=== PATIENT | female | born 1960 | race Caucasian/White ===

== ENCOUNTER 2017-02-20 13:06 | Emergency (ER) | payer OTHER ==
[2017-02-20] MEDS ORDERED: VALIUM 10 MG/2 ML SYRINGE IV ONE (13:32)
--- NOTE | 2017-02-20 13:40 | ERPHSYRPT ---
- History of Present Illness Time Seen by Provider: 02/20/17 13:21 Source: patient Patient Subjective Stated Complaint: dizziness and headache since last night. denies vomiting/diarrhea. Triage Nursing Assessment: to room per w/c, skin w/d, color normal. speech clear. lr without difficulty. javid Physician History: CC: dizziness HX: 56 y/o patient of Dr Cintron. She has ringing in ears for 2 weeks. Spinning dizziness since last night. Headache this AM. She has prior hx of stroke. She is a smoker. No focal weakness, numbness or tingling. No N/V. No chest pain. No injury. She feels worse when lying flat. Severity: severe Allergies/Adverse Reactions: coconut Allergy (Verified 02/20/17 13:20) Home Medications: Calcium Carbonate 2 tab PO TID 07/21/15 [History] Alendronate Sodium/Vitamin D3 [Fosamax Plus D 70 mg-2,800 Iu] 1 each PO UD 02/26 [History] Meloxicam 7.5 mg [Mobic 7.5 MG] 7.5 mg PO DAILY 02/27/16 [History] Pregabalin [Lyrica] 50 mg PO BID 02/27/16 [History] Famotidine 20 mg [Pepcid 20 MG] 20 mg PO DAILY 02/20/17 [History] Fluticasone Propionate [Flonase NASAL] 16 gm NS DAILY 02/20/17 [History] Fluticasone/Salmeterol [Advair 250-50 Diskus] 1 each IH DAILY 02/20/17 [History] Hx Tetanus, Diphtheria Vaccination/Date Given: No Hx Influenza Vaccination/Date Given: Yes (2016) Hx Pneumococcal Vaccination/Date Given: No - Review of Systems Constitutional: No Fever, No Chills Eyes: No Vision Changes Ears, Nose, & Throat: Hearing Changes, Tinnitus Respiratory: No Cough Cardiac: No Chest Pain, No Palpitations, No Syncope Abdominal/Gastrointestinal: No Abdominal Pain, No Nausea, No Vomiting Skin: No Rash Neurological: Dizziness, Headache, No Focal Weakness, No Parasthesia All Other Systems: Reviewed and Negative - Past Medical History Pertinent Past Medical History: Yes Neurological History: TIA ENT History: No Pertinent History Cardiac History: No Pertinent History Respiratory History: Pneumonia Endocrine Medical History: No Pertinent History Musculoskeletal History: Arthritis, Osteoporosis GI Medical History: GERD, Hemorrhoids History: No Pertinent History Psycho-Social History: No Pertinent History Female Reproductive Disorders: Other Other Medical History: sciatic bulging recently,cysts on ovaries taken off 26years ago - Past Surgical History Past Surgical History: Yes Neuro Surgical History: No Pertinent History Cardiac: No Pertinent History Respiratory: No Pertinent History Gastrointestinal: No Pertinent History Genitourinary: No Pertinent History Musculoskeletal: Orthopedic Surgery Female Surgical History: Other Other Surgical History: rt arm,ovarian cyst removed - Social History Smoking Status: Current every day smoker How long have you smoked: 25 Exposure to second hand smoke: Yes Drug Use: none Patient Lives Alone: No - Nursing Vital Signs Nursing Vital Signs: Initial Vital Signs Temperature 97.4 F 02/20/17 13:12 Pulse Rate 90 02/20/17 13:12 Respiratory Rate 16 02/20/17 13:12 Blood Pressure 138/90 02/20/17 13:12 O2 Sat by Pulse Oximetry 99 02/20/17 13:12 Pain Scale Pain Intensity 10 - [place] Coma Scale Best Eye Response ([place]): (4) open spontaneously Best Verbal Response ([place]): (5) oriented Best Motor Response ([place]): (6) obeys commands [place] Total: 15 - Physical Exam General Appearance: alert Eye Exam: bilateral eye: PERRL, EOMI, other (some horizontal nystagmus with gaze ) Ears, Nose, Throat Exam: normal ENT inspection, moist mucous membranes Neck Exam: normal inspection, supple Respiratory: normal breath sounds Cardiovascular: regular rate/rhythm Gastrointestinal: soft, No tenderness, No distention Back Exam: normal inspection Extremity Exam: normal inspection, normal range of motion 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, oriented x 3, cooperative hand welt butter Exam: normal speech, PERRL Coordination/Gait: ABN nose to finger (R) (slow with some ataxis), ABN nose to finger (L) (slow with some ataxia) Motor/Sensory: no motor deficit, no sensory deficit, no pronator drift Skin Exam: normal color, warm, dry, No rash SpO2 Interpretation: normal SpO2: 99 Oxygen Delivery: Room Air - Course Nursing assessment & vital signs reviewed: Yes EKG Interpreted by Me: RATE (75]), Sinus Rhythm, NORMAL AXIS, NORMAL INTERVALS ( [id number]), NORMAL QRS, NORMAL ST-T - Radiology Exams cxr X-ray Interpretation: Teleradiologist Report, Negative Ordered Tests: Active Orders 24 hr Category Date Time Status Clean Catch Urine Specimen STAT Care 02/20/17 13:32 Active EKG-ER Only STAT Care 02/20/17 13:32 Active IV Insertion STAT Care 02/20/17 13:32 Active CHEST 1 VIEW (PORTABLE) Stat Exams 02/20/17 13:32 Completed MRI BRAIN W/O CONTRAST [MRI] Stat Exams 02/20/17 13:34 Completed CBC W DIFF Stat Lab 02/20/17 13:35 Completed CMP Stat Lab 02/20/17 13:35 Completed UA W/ MICROSCOPIC Stat Lab 02/20/17 13:32 Completed Urine Triage Profile Stat Lab 02/20/17 13:32 Completed Medication Summary Discontinued Medications Generic Name Dose Route Start Last Admin Trade Name Freq PRN Reason Stop Dose Admin Diazepam 5 mg 02/20/17 13:32 02/20/17 14:36 Valium 10 Mg/2 Ml Syringe IV 02/20/17 13:33 Not Given STAT ONE Lorazepam 1 mg 02/20/17 14:24 02/20/17 14:39 Ativan 2 Mg/1 Ml Vial IV 02/20/17 14:25 1 mg STAT ONE Administration Lorazepam Confirm 02/20/17 14:38 Ativan 2 Mg/1 Ml Vial Administered 02/20/17 14:39 Dose 2 mg .ROUTE .STK-MED ONE Lab/Rad Data: Laboratory Result Diagrams 02/20/17 13:35 02/20/17 13:35 Laboratory Results 02/20/17 02/20/17 02/20/17 Range/Units 13:35 13:35 13:32 WBC 6.0 (4.0-10.5) K/mm3 RBC 4.23 (4.1-5.4) M/mm3 Hgb 12.3 (12.0-16.0) gm/dl Hct 37.8 (35-47) % MCV 89.4 (78-100) fl MCH 29.1 (26-32) pg MCHC 32.5 (32-36) g/dl RDW 12.7 (11.5-14.0) % Plt Count 278 (150-450) K/mm3 MPV 9.5 (6-9.5) fl Gran % 55.9 (36.0-66.0) % Lymphocytes % 35.6 (24.0-44.0) % Monocytes % 6.0 (0.0-12.0) % Eosinophils % 1.8 (0.00-5.0) % Basophils % 0.7 (0.0-0.4) % Basophils # 0.04 (0-0.4) Sodium 135 L (136-145) mEq/L Potassium 3.9 (3.5-5.1) mEq/L Chloride 101 (98-107) mEq/L Carbon Dioxide 25.7 (21-32) mEq/L Anion Gap 12.2 (5-15) MEQ/L BUN 12 (9-20) mg/dL Creatinine 1.12 (0.55-1.30) mg/dl Estimated GFR 53 ML/MIN Glucose 94 (70-110) MG/DL Calcium 9.0 (8.5-10.1) mg/dL Total Bilirubin 0.20 (0.2-1.0) mg/dL AST 20 (15-37) U/L ALT 20 (12-78) U/L Alkaline Phosphatase 62 (46-116) U/L Serum Total Protein 7.3 (6.4-8.2) gm/dL Albumin 3.8 (3.4-5.0) g/dL Ur Collection Type Urine Color (YELLOW) Urine Appearance (CLEAR) Urine pH (5-6) Ur Specific [place] (1.005-1.025) Urine Protein (Negative) Urine Ketones (NEGATIVE) Urine Blood (0-5) Darvin/ul Urine Nitrite (NEGATIVE) Urine Bilirubin (NEGATIVE) Urine Urobilinogen (0-1) mg/dL Ur Leukocyte Esterase (NEGATIVE) Urine Microscopic WBC (0-5) /HPF Ur Epithelial Cells (FEW) /HPF Urine Bacteria (NEGATIVE) /HPF Urine Culture Reflexed (NO) Urine Glucose (NEGATIVE) mg/dL Urine Opiates Level NEG. (NEGATIVE) Ur Methadone NEG. (NEGATIVE) Urine Barbiturates NEG. (NEGATIVE) Ur Phencyclidine (PCP) NEG. (NEGATIVE) Urine Amphetamine NEG. (NEGATIVE) U Benzodiazepine Level NEG. (NEGATIVE) Urine Cocaine NEG. (NEGATIVE) Urine Marijuana (THC) NEG. (NEGATIVE) Specimen Received 11/17/17 Range/Units 13:32 WBC (4.0-10.5) K/mm3 RBC (4.1-5.4) M/mm3 Hgb (12.0-16.0) gm/dl Hct (35-47) % MCV (78-100) fl MCH (26-32) pg MCHC (32-36) g/dl RDW (11.5-14.0) % Plt Count (150-450) K/mm3 MPV (6-9.5) fl Gran % (36.0-66.0) % Lymphocytes % (24.0-44.0) % Monocytes % (0.0-12.0) % Eosinophils % (0.00-5.0) % Basophils % (0.0-0.4) % Basophils # (0-0.4) Sodium (136-145) mEq/L Potassium (3.5-5.1) mEq/L Chloride (98-107) mEq/L Carbon Dioxide (21-32) mEq/L Anion Gap (5-15) MEQ/L BUN (9-20) mg/dL Creatinine (0.55-1.30) mg/dl Estimated GFR ML/MIN Glucose (70-110) MG/DL Calcium (8.5-10.1) mg/dL Total Bilirubin (0.2-1.0) mg/dL AST (15-37) U/L ALT (12-78) U/L Alkaline Phosphatase (46-116) U/L Serum Total Protein (6.4-8.2) gm/dL Albumin (3.4-5.0) g/dL Ur Collection Type VOID Urine Color LT.YELLOW (YELLOW) Urine Appearance CLEAR (CLEAR) Urine pH 7.0 (5-6) Ur Specific [place] <=1.005 (1.005-1.025) Urine Protein NEGATIVE (Negative) Urine Ketones NEGATIVE (NEGATIVE) Urine Blood MODERATE (0-5) Darvin/ul Urine Nitrite NEGATIVE (NEGATIVE) Urine Bilirubin NEGATIVE (NEGATIVE) Urine Urobilinogen NORMAL (0-1) mg/dL Ur Leukocyte Esterase TRACE (NEGATIVE) Urine Microscopic WBC 0-2 (0-5) /HPF Ur Epithelial Cells FEW (FEW) /HPF Urine Bacteria RARE (NEGATIVE) /HPF Urine Culture Reflexed NO (NO) Urine Glucose NEGATIVE (NEGATIVE) mg/dL Urine Opiates Level (NEGATIVE) Ur Methadone (NEGATIVE) Urine Barbiturates (NEGATIVE) Ur Phencyclidine (PCP) (NEGATIVE) Urine Amphetamine (NEGATIVE) U Benzodiazepine Level (NEGATIVE) Urine Cocaine (NEGATIVE) Urine Marijuana (THC) (NEGATIVE) Specimen Received 02/20/17 1440 - Progress Progress Note: 02/20/17 13:41 Will get MRI brain to rule out subacute cerebellar stroke. She would not be TPA candidate as symptoms started yesterday greater than 12 hours ago. 02/20/17 15:52 MRI: stable MRI brain with minimal degenerative microischemia. No new acute intracranial abnl. She was sleepy after ativan. Has seen Dr Abreu in the past for ENT and tinnitus. Will Add maxzide, antivert and medrol and follow up with Dr Abreu. Counseled pt/family regarding: lab results, diagnosis, need for follow-up, rad results - Departure Time of Disposition: 15:53 Departure Disposition: Home Clinical Impression: Vertigo, Tinnitus Condition: Stable Critical Care Time: No Referrals: MELE CINTRON [Primary Care Provider] - DO ABREU [NON-STAFF PHY W/O PRIVILEGES] - Instructions: Vertigo Additional Instructions: Rx maxzide. Rx antivert- no driving. Rx medrol dose pack. Call to see Dr Abreu next week. Return for fever, vomiting, confusion, or concerns. Prescriptions: Meclizine HCl 25 mg [Antivert 25 mg] 25 mg PO Q6H PRN PRN #15 tablet PRN Reason: Dizziness Hctz/Triamteren 37.5 mg/25 mg* [Maxzide-25MG Tablet] 1 tab PO DAILY #15 tablet Methylprednisolone Packet [Medrol Dosepack] 4 mg PO UD #30 packet
--- NOTE | 2017-02-20 14:05 | XRAY ---
Indication: Dizziness. Comparison: May 06, 2016. Portable chest again demonstrates normal heart, lungs, and bony thorax.
[2017-02-20 14:07] LABS: BASOPHIL % 0.7 % (0.0-0.4); Eosinophil % 1.8 % (0.00-5.0); Granulocytes % 55.9 % (36.0-66.0); Lymphocytes % 35.6 % (24.0-44.0); Mean Cell Volume 89.4 fl (78-100); Mean Corpuscular Hemoglobin 29.1 pg (26-32); Mean Platelet Volume 9.5 fl (6-9.5); Platelet Count 278 K/mm3 (150-450); Red Blood Count 4.23 M/mm3 (4.1-5.4); Red Cell Distribution Width 12.7 % (11.5-14.0)
[2017-02-20] MEDS ORDERED: Ativan 2 MG/1 ML VIAL IV ONE (14:24)
[2017-02-20] MEDS ORDERED: Ativan 2 MG/1 ML VIAL ONE (14:38)
[2017-02-20 14:48] LABS: ALBUMIN 3.8 g/dL (3.4-5.0); ANION GAP 12.2 MEQ/L (5-15); BILIRUBIN,TOTAL 0.2 mg/dL (0.2-1.0); Carbon Dioxide 25.7 mEq/L (21-32); Potassium 3.9 mEq/L (3.5-5.1); Total Protein 7.3 gm/dL (6.4-8.2)
[2017-02-20 14:48] LABS: Collection Type VOID
[2017-02-20 14:49] LABS: ADD URINE CULTURE? NO (NO); Bacteria RARE /HPF (NEGATIVE); Bilirubin NEGATIVE (NEGATIVE); Blood MODERATE Ery/ul (0-5); COMPLETE URINE MICROSCOPIC? YES; Epithelial Cells FEW /HPF (FEW); Glucose NEGATIVE (NEGATIVE); Leukocyte Esterase TRACE (NEGATIVE); WBC 0-2 /HPF (0-5)
--- NOTE | 2017-02-20 15:38 | XRAY ---
Indication: Severe headache, dizziness, nausea, and chills. Sagittal, coronal, and axial MRI brain was performed without contrast using T1, T2, FLAIR, diffusion, and ADC sequences. Comparison: February 14, 2008. Ventriculosulcal pattern appears symmetric. Again a few degenerative micro-ischemia signal bilaterally. No acute intracranial hemorrhage, abnormal extra-axial fluid collection, or mass effect. Diffusion images again negative for restricted signal. Fourth ventricle is midline without hydrocephalus. 7/8 cranial nerve complex bilaterally symmetric. Normal flow void signal within the major intracerebral circulation. Normal-appearing craniocervical junction and sella turcica. Paranasal sinuses are clear. Impression: Stable MRI brain without contrast exam again demonstrating minimal degenerative micro-ischemia. No new or acute intracranial abnormalities.
[2017-02-20 15:57] VITALS: BP 138/76; PULSE 79; O2SAT 99
== END 2017-02-20 16:11 | disposition home or self-care (01) ==
LOC: ED 13:06
DX: R42 Dizziness and giddiness (principal); H93.13 Tinnitus, bilateral; Z79.899 Other long term (current) drug therapy; R51 Headache
CPT/HCPCS: 36000; 36415; 70551; 71010; 80053; 80307; 81000; 85025; 93005; 96374; 96375; 99284; J2060

== ENCOUNTER 2017-02-23 20:16 | Emergency (ER) | payer OTHER ==
[2017-02-23] MEDS ORDERED: Sodium Chloride 0.9% 1000 ML 1,000 ML IV STA (20:48)
[2017-02-23] MEDS ORDERED: Zofran 4 MG/2 ML VIAL IV ONE (20:52)
[2017-02-23] MEDS ORDERED: TORAdol 30 mg Injection IV ONE (20:52)
--- NOTE | 2017-02-23 20:53 | ERPHSYRPT ---
- History of Present Illness Time Seen by Provider: 02/23/17 20:40 Source: patient Exam Limitations: no limitations Patient Subjective Stated Complaint: Pt C/O cramps all over body for 2 weeks. Was recently seen at this fac[facility] for dizziness as well. Reports that she took lyrica and ropinerol for the cramps but it has not helped. Denies vomiting , diarrhea. Reports nausea. Triage Nursing Assessment: Pt alert, oriented, answers all questions appropriately. Skin pink, warm, dry. Resps non-labored. Pt ambulatory to tx room, steady gait noted. Mucous membranes dry, tacky, pink. Physician History: 56 y/o female comes to the ER with complaints of muscle cramps for the past few days. Pt says her whole body is hurting her. Pt used ropinirole and lyrica with no relief. Pt was started on maxzide, medrol and meclizine. Pt admits to not drinking enough water over the last few days. Pt also admits to nausea. Pt describes the pain as cramping, constant, 8/10 and has not used any narcotics or anti-inflammatories. Timing/Duration: day(s) Severity: severe Associated Symptoms: nausea Allergies/Adverse Reactions: coconut Allergy (Verified 02/23/17 20:50) Home Medications: Calcium Carbonate 2 tab PO TID 07/21/15 [History] Alendronate Sodium/Vitamin D3 [Fosamax Plus D 70 mg-2,800 Iu] 1 each PO UD 02/26 [History] Meloxicam 7.5 mg [Mobic 7.5 MG] 7.5 mg PO DAILY 02/27/16 [History] Pregabalin [Lyrica] 50 mg PO BID 02/27/16 [History] Famotidine 20 mg [Pepcid 20 MG] 20 mg PO DAILY 02/20/17 [History] Fluticasone Propionate [Flonase NASAL] 16 gm NS DAILY 02/20/17 [History] Fluticasone/Salmeterol [Advair 250-50 Diskus] 1 each IH DAILY 02/20/17 [History] Hx Tetanus, Diphtheria Vaccination/Date Given: Yes Hx Influenza Vaccination/Date Given: Yes Hx Pneumococcal Vaccination/Date Given: No Immunizations Up to Date: Yes - Review of Systems Constitutional: Weakness, No Fever, No Chills Eyes: No Symptoms Ears, Nose, & Throat: No Symptoms Respiratory: No Cough, No Dyspnea Cardiac: No Chest Pain, No Edema, No Syncope Abdominal/Gastrointestinal: Nausea, No Abdominal Pain, No Vomiting, No Diarrhea Genitourinary Symptoms: No Dysuria Musculoskeletal: Myalgias, No Back Pain, No Neck Pain Skin: No Rash Neurological: Dizziness, No Focal Weakness, No Sensory Changes Psychological: No Symptoms Endocrine: No Symptoms All Other Systems: Reviewed and Negative - Past Medical History Pertinent Past Medical History: Yes Neurological History: TIA ENT History: No Pertinent History Cardiac History: No Pertinent History Respiratory History: Pneumonia Endocrine Medical History: No Pertinent History Musculoskeletal History: Arthritis, Osteoporosis GI Medical History: GERD, Hemorrhoids History: No Pertinent History Psycho-Social History: No Pertinent History Female Reproductive Disorders: Other Other Medical History: sciatic bulging recently,cysts on ovaries taken off 26years ago - Past Surgical History Past Surgical History: Yes Neuro Surgical History: No Pertinent History Cardiac: No Pertinent History Respiratory: No Pertinent History Gastrointestinal: No Pertinent History Genitourinary: No Pertinent History Musculoskeletal: Orthopedic Surgery Female Surgical History: Other Other Surgical History: rt arm,ovarian cyst removed - Social History Smoking Status: Current every day smoker How long have you smoked: 25 Exposure to second hand smoke: Yes Drug Use: none Patient Lives Alone: No - Female History Hx Last Menstrual Period: post-menopausal - Nursing Vital Signs Nursing Vital Signs: Initial Vital Signs Temperature 97.5 F 02/23/17 20:17 Pulse Rate 87 02/23/17 20:17 Respiratory Rate 16 02/23/17 20:17 Blood Pressure 148/83 02/23/17 20:17 O2 Sat by Pulse Oximetry 97 02/23/17 20:17 Pain Scale Pain Intensity [Generalized] 9 Pain Intensity 7 - Physical Exam General Appearance: mild distress, alert Eye Exam: PERRL/EOMI, eyes nml inspection Ears, Nose, Throat Exam: normal ENT inspection, TMs normal, pharynx normal, dry mucous membranes Neck Exam: normal inspection, non-tender, supple, full range of motion Respiratory Exam: normal breath sounds, lungs clear, No respiratory distress Cardiovascular Exam: regular rate/rhythm, normal heart sounds, normal peripheral pulses Gastrointestinal/Abdomen Exam: soft, normal bowel sounds, No tenderness, No mass Back Exam: normal inspection, normal range of motion, No CVA tenderness, No vertebral tenderness Extremity Exam: normal inspection, normal range of motion, pelvis stable, tenderness Neurologic Exam: alert, oriented x 3, cooperative, normal mood/affect, nml cerebellar function, nml station & gait, sensation nml, No motor deficits Skin Exam: normal color, warm, dry, No rash Lymphatic Exam: No adenopathy SpO2 Interpretation: normal SpO2: 97 Oxygen Delivery: Room Air - Course Nursing assessment & vital signs reviewed: Yes Ordered Tests: Active Orders 24 hr Category Date Time Status CHEST 2 VIEWS (PA AND LAT) Stat Exams 02/23/17 Taken CBC W DIFF Stat Lab 02/23/17 20:50 Completed CK-Creatinine Phosphokinase Stat Lab 02/23/17 20:50 Completed CMP Stat Lab 02/23/17 20:50 Completed CULTURE,URINE Stat Lab 02/23/17 20:50 Received Erythrocyte Sedimentation Rate Stat Lab 02/23/17 20:50 Completed MAGNESIUM Stat Lab 02/23/17 20:50 Completed UA W/ MICROSCOPIC Stat Lab 02/23/17 20:50 Completed Medication Summary Generic Name Dose Route Start Last Admin Trade Name Freq PRN Reason Stop Dose Admin Sodium Chloride 1,000 mls @ 200 mls/hr 02/23/17 22:15 02/23/17 22:14 Sodium Chloride 0.9% 1000 Ml IV 03/25/17 22:14 200 mls/hr .Q5H JUSTIN Administration Discontinued Medications Generic Name Dose Route Start Last Admin Trade Name Freq PRN Reason Stop Dose Admin Sodium Chloride 1,000 mls @ 999 mls/hr 02/23/17 20:48 02/23/17 21:05 Sodium Chloride 0.9% 1000 Ml IV 02/23/17 21:48 999 mls/hr .Q1H1M STA Administration Sodium Chloride Confirm 02/23/17 20:57 Sodium Chloride 0.9% 1000 Ml Administered 02/23/17 20:58 Dose 1,000 mls @ ud .ROUTE .STK-MED ONE Ketorolac Tromethamine 30 mg 02/23/17 20:52 02/23/17 21:05 Toradol 30 Mg Injection IV 02/23/17 20:53 30 mg STAT ONE Administration Ketorolac Tromethamine Confirm 02/23/17 20:57 Toradol 30 Mg Injection Administered 02/23/17 20:58 Dose 30 mg .ROUTE .STK-MED ONE Ondansetron HCl 4 mg 02/23/17 20:52 02/23/17 21:05 Zofran 4 Mg/2 Ml Vial IV 02/23/17 20:53 4 mg STAT ONE Administration Ondansetron HCl Confirm 02/23/17 20:57 Zofran 4 Mg/2 Ml Vial Administered 02/23/17 20:58 Dose 4 mg .ROUTE .STK-MED ONE Lab/Rad Data: Laboratory Result Diagrams 02/23/17 20:50 02/23/17 20:50 Laboratory Results 02/23/17 02/23/17 02/23/17 Range/Units 20:50 20:50 20:50 WBC 10.5 (4.0-10.5) K/mm3 RBC 4.37 (4.1-5.4) M/mm3 Hgb 12.9 (12.0-16.0) gm/dl Hct 37.3 (35-47) % MCV 85.4 (78-100) fl MCH 29.5 (26-32) pg MCHC 34.6 (32-36) g/dl RDW 12.4 (11.5-14.0) % Plt Count 310 (150-450) K/mm3 MPV 9.3 (6-9.5) fl Gran % 68.3 H (36.0-66.0) % Lymphocytes % 23.8 L (24.0-44.0) % Monocytes % 7.2 (0.0-12.0) % Eosinophils % 0.5 (0.00-5.0) % Basophils % 0.2 (0.0-0.4) % Basophils # 0.02 (0-0.4) ESR 9 (0-20) mm/hr Sodium 122 L (136-145) mEq/L Potassium 4.7 (3.5-5.1) mEq/L Chloride 85 L (98-107) mEq/L Carbon Dioxide 29.9 (21-32) mEq/L Anion Gap 11.9 (5-15) MEQ/L BUN 17 (9-20) mg/dL Creatinine 1.10 (0.55-1.30) mg/dl Estimated GFR 55 ML/MIN Glucose 88 (70-110) MG/DL Calcium 9.1 (8.5-10.1) mg/dL Magnesium 1.9 (1.8-2.4) mg/dL Total Bilirubin 0.20 (0.2-1.0) mg/dL AST 31 (15-37) U/L ALT 27 (12-78) U/L Alkaline Phosphatase 65 (46-116) U/L Creatine Kinase 1118 H (26-192) U/L Serum Total Protein 7.9 (6.4-8.2) gm/dL Albumin 4.1 (3.4-5.0) g/dL Ur Collection Type CLEAN CATCH Urine Color YELLOW (YELLOW) Urine Appearance CLEAR (CLEAR) Urine pH 6.0 (5-6) Ur Specific [place] 1.010 (1.005-1.025) Urine Protein NEGATIVE (Negative) Urine Ketones NEGATIVE (NEGATIVE) Urine Blood 50 (0-5) Darvin/ul Urine Nitrite NEGATIVE (NEGATIVE) Urine Bilirubin NEGATIVE (NEGATIVE) Urine Urobilinogen NORMAL (0-1) mg/dL Ur Leukocyte Esterase TRACE (NEGATIVE) Urine Microscopic RBC 0-2 (0-2) /HPF Urine Microscopic WBC 2-5 (0-5) /HPF Ur Epithelial Cells FEW (FEW) /HPF Urine Bacteria FEW (NEGATIVE) /HPF Urine Culture Reflexed YES (NO) Urine Glucose NEGATIVE (NEGATIVE) mg/dL Specimen Received 02/23/172046 - Progress Progress: improved Progress Note: 02/23/17 22:08 The CPK is 1118 and the Na is 122 which is a 13 point drop from 135 to 122. Clinically patient is dehydrated and has received a liter of fluids. Pt will now receive a liter of NS at maintenance rate. The rest of the labs are unremarkable and the CXR is negative for any infiltrate. The likely etiology of rhabdomyolysis is the maxzide and medrol dose roshan that was started 3 days ago as well as decrease water intake. 02/23/17 22:[address] Argueta who wants the patient to be transferred to [facility] for a renal consult. 02/23/17 23:06 Pt has been accepted by Dr Argueta at [facility]. - Departure Time of Disposition: 23:06 Departure Disposition: Transfer Clinical Impression: Hyponatremia, Dehydration Rhabdomyolysis Qualifiers: Rhabdomyolysis type: non-traumatic Qualified Code(s): M62.82 - Rhabdomyolysis Condition: Fair Critical Care Time: Yes Critical Care Time(excluding separately billable procedures): 75-104 minutes Referrals: MELE MITCHELL [Primary Care Provider] -
[2017-02-23] MEDS ORDERED: Zofran 4 MG/2 ML VIAL ONE (20:57)
[2017-02-23] MEDS ORDERED: Sodium Chloride 0.9% 1000 ML 1,000 ML ONE ×2 (20:57→22:01)
[2017-02-23] MEDS ORDERED: TORAdol 30 mg Injection ONE (20:57)
[2017-02-23 21:00] LABS: BASOPHIL % 0.2 % (0.0-0.4); Eosinophil % 0.5 % (0.00-5.0); Granulocytes % 68.3 % (36.0-66.0); Lymphocytes % 23.8 % (24.0-44.0); Mean Cell Volume 85.4 fl (78-100); Mean Corpuscular Hemoglobin 29.5 pg (26-32); Mean Platelet Volume 9.3 fl (6-9.5); Monocytes % 7.2 % (0.0-12.0); Platelet Count 310 K/mm3 (150-450); Red Blood Count 4.37 M/mm3 (4.1-5.4); Red Cell Distribution Width 12.4 % (11.5-14.0); White Blood Count 10.5 K/mm3 (4.0-10.5)
[2017-02-23 21:25] LABS: Collection Type CLEAN CATCH; Leukocyte Esterase TRACE (NEGATIVE)
[2017-02-23 21:26] LABS: Bilirubin NEGATIVE (NEGATIVE); Blood 50 Ery/ul (0-5); COMPLETE URINE MICROSCOPIC? YES; Glucose NEGATIVE (NEGATIVE)
[2017-02-23 21:27] LABS: ADD URINE CULTURE? YES (NO); Bacteria FEW /HPF (NEGATIVE); Epithelial Cells FEW /HPF (FEW)
[2017-02-23 21:29] LABS: ALBUMIN 4.1 g/dL (3.4-5.0); ANION GAP 11.9 MEQ/L (5-15); BILIRUBIN,TOTAL 0.2 mg/dL (0.2-1.0); Carbon Dioxide 29.9 mEq/L (21-32); MAGNESIUM 1.9 mg/dL (1.8-2.4); Potassium 4.7 mEq/L (3.5-5.1); Total Protein 7.9 gm/dL (6.4-8.2)
[2017-02-23 21:30] LABS: Erythrocyte Sedimentation Rate 9 mm/hr (0-20)
[2017-02-23 21:57] VITALS: PULSE 76
[2017-02-23] MEDS ORDERED: Sodium Chloride 0.9% 1000 ML 1,000 ML IV SCH (22:15)
[2017-02-23 23:07] VITALS: O2SAT 97
[2017-02-23 23:47] VITALS: BP 117/69
--- NOTE | 2017-02-24 09:26 | XRAY ---
Indication: Cough, chest tightness, chills, and aches. Comparison: February 20, 2017. PA/lateral chest again demonstrates normal heart, lungs, and bony thorax.
== END 2017-02-23 23:47 | disposition short-term general hospital (02) ==
LOC: ED 20:16
DX: M62.82 Rhabdomyolysis (principal); E87.1 Hypo-osmolality and hyponatremia; E86.0 Dehydration
CPT/HCPCS: 36000; 36415; 71020; 80053; 81000; 82550; 83735; 85025; 85652; 87086; 96360; 96361; 96374; 96375; 99284; J1885; J2405

== ENCOUNTER 2017-12-06 13:42 | Emergency (ER) | payer OTHER ==
[2017-12-06] MEDS ORDERED: DUONEB 0.5-3 MG/3 ml Neb IH ONE ×2 (14:01→14:48)
[2017-12-06] MEDS ORDERED: Sodium Chloride 0.9% 1000 ML 1,000 ML ONE (14:07)
--- NOTE | 2017-12-06 14:09 | ERPHSYRPT ---
- History of Present Illness Time Seen by Provider: 12/06/17 13:57 Source: patient Exam Limitations: no limitations Patient Subjective Stated Complaint: pt here for sudden onset of sob while lying on couch,she arrived [place] slumped back with eyes closed, she will answer questions when asked Triage Nursing Assessment: pt alert, resp easy, skin w/d/p.chest clear, coughing up yellow sputum. no fever,no edema noted Physician History: 57-year-old white female with history of TIA, pneumonia, arthritis, osteoporosis , GERD She arrives with complaint of sudden onset of shortness of breath approximately 45 minutes prior to arrival associated with paresthesias to the right arm she has no chest pain no nausea no vomiting she states she has been coughing yellow sputum for the past several days she feels like she's been wheezing. Past medical history includes TIA, pneumonia, arthritis, osteoporosis, GERD, hemorrhoids, sciatic bulging, ovarian cyst removed in the distant past. Past surgical history includes right arm surgery, ovarian cysts Patient states she's been through menopause Social history includes tobacco use she denies alcohol or illicit drug use Timing/Duration: today (45 minutes prior to arrival) Severity: moderate Modifying Factors: Improves With: nothing Associated Symptoms: shortness of breath, cough, other (transient paresthesia right arm prior to symptoms), No nausea, No vomiting, No abdominal pain, No heartburn, No diaphoresis, No chills, No chest pain, No fever, No headaches, No loss of appetite, No malaise, No rash, No syncope, No seizure, No weakness Allergies/Adverse Reactions: coconut Allergy (Verified 12/06/17 13:55) Home Medications: Calcium Carbonate 2 tab PO TID 07/21/15 [History] Alendronate Sodium/Vitamin D3 [Fosamax Plus D 70 mg-2,800 Iu] 1 each PO UD 02/26 [History] Meloxicam 7.5 mg [Mobic 7.5 MG] 7.5 mg PO DAILY 02/27/16 [History] Pregabalin [Lyrica] 50 mg PO BID 02/27/16 [History] Famotidine 20 mg [Pepcid 20 MG] 20 mg PO DAILY 02/20/17 [History] Fluticasone Propionate [Flonase NASAL] 16 gm NS DAILY 02/20/17 [History] Fluticasone/Salmeterol [Advair 250-50 Diskus] 1 each IH DAILY 02/20/17 [History] Hx Tetanus, Diphtheria Vaccination/Date Given: Yes Hx Influenza Vaccination/Date Given: Yes Hx Pneumococcal Vaccination/Date Given: No Immunizations Up to Date: Yes - Review of Systems Constitutional: No Fever, No Chills Eyes: No Symptoms Ears, Nose, & Throat: No Symptoms Respiratory: Cough, Dyspnea, Wheezing Cardiac: No Chest Pain, No Edema, No Syncope Abdominal/Gastrointestinal: No Abdominal Pain, No Nausea, No Vomiting, No Diarrhea Genitourinary Symptoms: No Dysuria Musculoskeletal: No Back Pain, No Neck Pain Skin: No Rash Neurological: Parasthesia (transient paresthesia right armprior to symptom onset), No Dizziness, No Focal Weakness, No Gait Changes, No Headache, No Irritability, No Lethargy, No Paralysis Psychological: No Symptoms Endocrine: No Symptoms All Other Systems: Reviewed and Negative - Past Medical History Pertinent Past Medical History: Yes Neurological History: TIA ENT History: No Pertinent History Cardiac History: Hypertension Respiratory History: COPD, Emphysema Endocrine Medical History: Adrenal Insufficiency Musculoskeletal History: Osteoarthritis, Osteoporosis GI Medical History: GERD, Hemorrhoids History: No Pertinent History Psycho-Social History: No Pertinent History Female Reproductive Disorders: Other Other Medical History: TIA "a few years ago" she had R sided numbness - Past Surgical History Past Surgical History: Yes Neuro Surgical History: No Pertinent History Cardiac: No Pertinent History Respiratory: No Pertinent History Gastrointestinal: No Pertinent History Genitourinary: No Pertinent History Musculoskeletal: Orthopedic Surgery Female Surgical History: Other Other Surgical History: rt arm,ovarian cyst removed - Social History Smoking Status: Current every day smoker How long have you smoked: 25 Exposure to second hand smoke: Yes Drug Use: none Patient Lives Alone: No - Female History Hx Last Menstrual Period: post Hx Now: No - Nursing Vital Signs Nursing Vital Signs: Initial Vital Signs Temperature 98.1 F 12/06/17 13:45 Pulse Rate 70 12/06/17 13:45 Respiratory Rate 26 H 12/06/17 13:45 Blood Pressure 181/82 12/06/17 13:45 O2 Sat by Pulse Oximetry 99 12/06/17 13:45 Pain Scale Pain Intensity 8 - Physical Exam General Appearance: mild distress Eye Exam: PERRL/EOMI, eyes nml inspection Ears, Nose, Throat Exam: normal ENT inspection, TMs normal, pharynx normal, moist mucous membranes Neck Exam: normal inspection, non-tender, supple, full range of motion Respiratory Exam: diminished breath sounds, rhonchi, wheezing (wheezing left upper lung fiels ) Cardiovascular Exam: regular rate/rhythm, normal heart sounds, normal peripheral pulses Gastrointestinal/Abdomen Exam: soft, normal bowel sounds, No tenderness, No mass Back Exam: normal inspection, normal range of motion, No CVA tenderness, No vertebral tenderness Extremity Exam: normal inspection, normal range of motion, pelvis stable Neurologic Exam: alert, oriented x 3, cooperative, telephonic case manager II-XII nml as tested, normal mood/affect, nml cerebellar function, nml station & gait, sensation nml, No motor deficits Skin Exam: normal color, warm, dry, No rash SpO2 Interpretation: normal (100%) SpO2: 100 Oxygen Delivery: Room Air - Course Nursing assessment & vital signs reviewed: Yes EKG Interpreted by Me: RATE (76 bpm), Sinus Rhythm, NORMAL AXIS, Other (EKG, sinus rhythm, 76 beats per minute,normal axis, no acute ST or T WAVE CHANGES, NORMAL ekg) Ordered Tests: Active Orders 24 hr Category Date Time Status Helpdesk Manager STAT Care 12/06/17 14:02 Active EKG-ER Only STAT Care 12/06/17 14:01 Active IV Insertion STAT Care 12/06/17 14:01 Active Oxygen-ED Only NASAL CANNULA 2 lpm Care 12/06/17 14:01 Active Pulse Oximetry (ED) STAT Care 12/06/17 14:01 Active CHEST 1 VIEW (PORTABLE) Stat Exams 12/06/17 14:02 Taken BLOOD CULTURE Stat Lab 12/06/17 14:15 Received CBC W DIFF Stat Lab 12/06/17 14:00 Completed CMP Stat Lab 12/06/17 14:00 Completed CULTURE,SPUTUM Stat Lab 12/06/17 16:00 Received D-DIMER QUANTITATION Stat Lab 12/06/17 14:00 Completed Lactic Acid Stat Lab 12/06/17 14:00 Completed NT PRO BNP Stat Lab 12/06/17 14:00 Completed PROTIME WITH INR Stat Lab 12/06/17 14:00 Completed PTT Stat Lab 12/06/17 14:00 Completed TROPONIN Q3H Lab 12/06/17 14:00 Completed TROPONIN Q3H Lab 12/06/17 17:15 Ordered TROPONIN Q3H Lab 12/06/17 20:15 Ordered TROPONIN Q3H Lab 12/06/17 23:15 Ordered TROPONIN Q3H Lab 12/07/17 02:15 Ordered VENOUS BLOOD GAS Stat Lab 12/06/17 14:00 Completed VENOUS BLOOD GAS Stat Lab 12/06/17 16:21 Completed Respiratory Nebulizer STAT RT 12/06/17 14:03 Active Medication Summary Generic Name Dose Route Start Last Admin Trade Name Freq PRN Reason Stop Dose Admin Sodium Chloride 1,000 mls @ 100 mls/hr 12/06/17 14:15 12/06/17 14:10 Sodium Chloride 0.9% 1000 Ml IV 01/05/18 14:14 100 mls/hr .Q10H JUSTIN Administration Discontinued Medications Generic Name Dose Route Start Last Admin Trade Name Freq PRN Reason Stop Dose Admin Albuterol/Ipratropium 3 ml 12/06/17 14:01 12/06/17 14:35 Duoneb 0.5-3 Mg/3 Ml Neb IH 12/06/17 14:02 3 ml STAT ONE Administration Albuterol/Ipratropium Confirm 12/06/17 14:48 Duoneb 0.5-3 Mg/3 Ml Neb Administered 12/06/17 14:49 Dose 3 ml IH .STK-MED ONE Ceftriaxone Sodium/Dextrose 1 g in 50 mls @ 100 mls/hr 12/06/17 15:10 15:47 Rocephin 1 Gm-D5w 50 Ml Bag IV 12/06/17 15:39 Infused STAT STA Infusion Ceftriaxone Sodium/Dextrose Confirm 12/06/17 15:10 Rocephin 1 Gm-D5w 50 Ml Bag Administered 12/06/17 15:11 Dose 1 g in 50 mls @ ud IV .STK-MED ONE Methylprednisolone Sodium Succinate 125 mg 12/06/17 14:52 12/06/17 15:02 Solu-Medrol 125 Mg IV 12/06/17 14:53 125 mg STAT ONE Administration Methylprednisolone Sodium Succinate Confirm 12/06/17 15:01 Solu-Medrol 125 Mg Administered 12/06/17 15:02 Dose 125 mg .ROUTE .STK-MED ONE Lab/Rad Data: Laboratory Result Diagrams 12/06/17 14:00 12/06/17 14:00 Laboratory Results 12/06/17 12/06/17 12/06/17 Range/Units 16:21 14:00 14:00 WBC (4.0-10.5) K/mm3 RBC (4.1-5.4) M/mm3 Hgb (12.0-16.0) gm/dl Hct (35-47) % MCV (78-100) fl MCH (26-32) pg MCHC (32-36) g/dl RDW (11.5-14.0) % Plt Count (150-450) K/mm3 MPV (6-9.5) fl Gran % (36.0-66.0) % Eos # (Auto) (0-0.5) Absolute Lymphs (auto) (1.0-4.6) Absolute Monos (auto) (0.0-1.3) Lymphocytes % (24.0-44.0) % Monocytes % (0.0-12.0) % Eosinophils % (0.00-5.0) % Basophils % (0.0-0.4) % Absolute Granulocytes (1.4-6.9) Basophils # (0-0.4) PT 11.9 (9.95-12.35) SECONDS INR 1.02 (0.8-3.0) APTT 30.1 (25.3-37.0) SECONDS D-Dimer 298 (215-500) ng/mL pO2/FiO2 Ratio 100.0 % VBG pH 7.35 (7.32-7.42) VBG pCO2 at Pat Temp 51 (42-55) mm/Hg VBG pO2 at Pat Temp 61 H (25-40) mm/Hg VBG HCO3 28.2 H (22-28) meq/L VBG O2 Sat (Zaida) 94.6 L (95-100) VBG Base Excess 1.8 (-2.0-2.0) VBG Hemoglobin 12.4 VBG Carboxyhemoglobin 5.5 (0.0-6.9) % T HGB POC Potassium 3.7 (3.5-5.1) Sodium (137-145) mmol/L Potassium (3.5-5.1) mmol/L Chloride (98-107) mmol/L Carbon Dioxide (22-30) mmol/L Anion Gap (5-15) MEQ/L BUN (7-17) mg/dL Creatinine (0.52-1.04) mg/dL Estimated GFR ML/MIN Glucose (74-106) mg/dL Lactic Acid (0.4-2.0) Calcium (8.4-10.2) mg/dL Total Bilirubin (0.2-1.3) mg/dL AST (14-36) U/L ALT (0-35) U/L Alkaline Phosphatase (38-126) U/L Troponin I < 0.012 (0.000-0.034) ng/mL NT-Pro-B Natriuret Pep (0-900) pg/mL Serum Total Protein (6.3-8.2) g/dL Albumin (3.5-5.0) g/dL 12/06/17 12/06/17 12/06/17 Range/Units 14:00 14:00 14:00 WBC 6.1 (4.0-10.5) K/mm3 RBC 4.22 (4.1-5.4) M/mm3 Hgb 12.6 (12.0-16.0) gm/dl Hct 37.5 (35-47) % MCV 88.9 (78-100) fl MCH 29.9 (26-32) pg MCHC 33.6 (32-36) g/dl RDW 13.1 (11.5-14.0) % Plt Count 263 (150-450) K/mm3 MPV 9.8 H (6-9.5) fl Gran % 57.7 (36.0-66.0) % Eos # (Auto) 0.11 (0-0.5) Absolute Lymphs (auto) 2.10 (1.0-4.6) Absolute Monos (auto) 0.36 (0.0-1.3) Lymphocytes % 34.3 (24.0-44.0) % Monocytes % 5.9 (0.0-12.0) % Eosinophils % 1.8 (0.00-5.0) % Basophils % 0.3 (0.0-0.4) % Absolute Granulocytes 3.54 (1.4-6.9) Basophils # 0.02 (0-0.4) PT (9.95-12.35) SECONDS INR (0.8-3.0) APTT (25.3-37.0) SECONDS D-Dimer (215-500) ng/mL pO2/FiO2 Ratio 28.0 % VBG pH 7.40 (7.32-7.42) VBG pCO2 at Pat Temp 45 (42-55) mm/Hg VBG pO2 at Pat Temp 37 (25-40) mm/Hg VBG HCO3 27.9 (22-28) meq/L VBG O2 Sat (Zaida) 80.6 L (95-100) VBG Base Excess 2.6 H (-2.0-2.0) VBG Hemoglobin 12.2 VBG Carboxyhemoglobin 9.8 H* (0.0-6.9) % T HGB POC Potassium 3.7 (3.5-5.1) Sodium 141 (137-145) mmol/L Potassium 4.0 (3.5-5.1) mmol/L Chloride 105 (98-107) mmol/L Carbon Dioxide 27 (22-30) mmol/L Anion Gap 12.9 (5-15) MEQ/L BUN 9 (7-17) mg/dL Creatinine 0.91 (0.52-1.04) mg/dL Estimated GFR > 60.0 ML/MIN Glucose 98 (74-106) mg/dL Lactic Acid 1.7 (0.4-2.0) Calcium 9.7 (8.4-10.2) mg/dL Total Bilirubin 0.30 (0.2-1.3) mg/dL AST 21 (14-36) U/L ALT 15 (0-35) U/L Alkaline Phosphatase 75 (38-126) U/L Troponin I (0.000-0.034) ng/mL NT-Pro-B Natriuret Pep 96.4 (0-900) pg/mL Serum Total Protein 7.1 (6.3-8.2) g/dL Albumin 4.2 (3.5-5.0) g/dL - Progress Progress: improved Progress Note: 12/06/17 14:44 57-year-old white female with history of TIA, pneumonia, arthritis, osteoporosis Arrives with complaint of shortness of breath for approximately 45 minutes prior to arrival. She states that she had brief paresthesias right arm prior to onset of symptoms she has not had any movement or speech disorders. She has had a cough productive of yellow sputum for 2 days she has not had a fever she has no chest pain. Patient's chest x-ray (my read) no acute disease process noted. Patient is noted to have a carboxyhemoglobin of 9.8. It is noted the patient continues to smoke. I've ordered a DuoNeb treatment on the patient's will turn patient's oxygen up to 100% for one hour. Will await patient's labs EKG is remarkable for sinus rhythm 76 beats per minute normal axis no acute ST or T wave changes are noted. 12/06/17 17:05 Patient feeling markedly better after IV normal saline, Rocephin, Solu-Medrol, DuoNeb treatment. Patient was given one hour of 100% oxygen secondary to a carboxyhemoglobin of over 9. Repeat carboxyhemoglobin level now 5.5. Patient's lung sounds are clear. Will plan on repeat troponin plan on discharge if within normal limits. Anticipate discharge with Zithromax, tapering prednisone, continuing albuterol treatments at home. 12/06/17 17:50 Patient has refused further sticks for troponin. She is in no distress feeling markedly better. Lungs are clear. Will discharge patient. Plan with Zithromax tapering prednisone continuing albuterol treatments at home - Departure Time of Disposition: 17:51 Departure Disposition: Home Clinical Impression: COPD with exacerbation, increased carbon monoxide level Condition: Fair Critical Care Time: No Referrals: MELE MITCHELL [Primary Care Provider] - Instructions: Chronic Obstructive Pulmonary Disease Additional Instructions: Return home. Tapering dose of prednisone and Zithromax as prescribed. Use your inhalers as prescribed by your family doctor. Stop smoking. Follow-up with your family doctor call Thursday for an appointment. Return for acute distress or for severe symptoms. Prescriptions: Azithromycin 250 mg [Zithromax 250 MG TABLET] 0 mg PO ZPACK #6 tablet
[2017-12-06] MEDS ORDERED: Sodium Chloride 0.9% 1000 ML 1,000 ML IV SCH (14:15)
[2017-12-06 14:28] LABS: Lactic Acid 1.7 (0.4-2.0); VBG BASE EXCESS 2.6 (-2.0-2.0); VBG HCO3- 27.9 meq/L (22-28); VBG HEMOGLOBIN 12.2; VBG O2 SATURATION 80.6 (95-100); VBG POTASSIUM 3.7 (3.5-5.1); VBG pH 7.4 (7.32-7.42)
[2017-12-06 14:30] LABS: BASOPHIL % 0.3 % (0.0-0.4); Basophil (Absolute #) 0.02 (0-0.4); Eosinophil % 1.8 % (0.00-5.0); Eosinophil (Absolute #) 0.11 (0-0.5); Granulocyte Absolute (ANC) 3.54 (1.4-6.9); Granulocytes % 57.7 % (36.0-66.0); Hematocrit 37.5 % (35-47); Hemoglobin 12.6 gm/dl (12.0-16.0); Lymphocytes % 34.3 % (24.0-44.0); Mean Cell Volume 88.9 fl (78-100); Mean Corpuscular Hemoglobin 29.9 pg (26-32); Mean Corpuscular Hgb Concent. 33.6 g/dl (32-36); Mean Platelet Volume 9.8 fl (6-9.5); Monocyte (Absolute #) 0.36 (0.0-1.3); Monocytes % 5.9 % (0.0-12.0); Platelet Count 263 K/mm3 (150-450); Red Blood Count 4.22 M/mm3 (4.1-5.4); Red Cell Distribution Width 13.1 % (11.5-14.0); VBG CARBOXYHEMOGLOBIN 9.8 % T HGB (0.0-6.9); White Blood Count 6.1 K/mm3 (4.0-10.5)
[2017-12-06 14:44] LABS: INR 1.02 (0.8-3.0)
[2017-12-06 14:49] LABS: ALBUMIN 4.2 g/dL (3.5-5.0); ALKALINE PHOSPHATASE 75 U/L (38-126); ANION GAP 12.9 MEQ/L (5-15); BLOOD UREA NITROGEN 9 mg/dL (7-17); CHLORIDE 105 mmol/L (98-107); Calcium 9.7 mg/dL (8.4-10.2); Carbon Dioxide 27 mmol/L (22-30); Creatinine 1 0.91 mg/dL (0.52-1.04); Glucose 98 mg/dL (74-106); NT PRO BNP 96.4 pg/mL (0-900); SGOT/AST 21 U/L (14-36); SGPT/ALT 15 U/L (0-35); SODIUM 141 mmol/L (137-145); Total Protein 7.1 g/dL (6.3-8.2)
[2017-12-06] MEDS ORDERED: solu-MEDROL 125 MG IV ONE (14:52)
[2017-12-06 14:56] LABS: PTT 30.1 SECONDS (25.3-37.0)
[2017-12-06] MEDS ORDERED: solu-MEDROL 125 MG ONE (15:01)
[2017-12-06] MEDS ORDERED: ROCEPHIN 1 Gm-D5w 50 ml Bag** 1 G/50 ML IVPB IV ONE (15:10)
[2017-12-06] MEDS ORDERED: ROCEPHIN 1 Gm-D5w 50 ml Bag** 1 G/50 ML IVPB IV STA (15:10)
[2017-12-06 16:21] LABS: VBG BASE EXCESS 1.8 (-2.0-2.0); VBG CARBOXYHEMOGLOBIN 5.5 % T HGB (0.0-6.9); VBG HCO3- 28.2 meq/L (22-28); VBG HEMOGLOBIN 12.4; VBG O2 SATURATION 94.6 (95-100); VBG POTASSIUM 3.7 (3.5-5.1); VBG pH 7.35 (7.32-7.42)
[2017-12-06] MEDS ORDERED: Zithromax 250 MG TABLET PO ONE (17:54)
[2017-12-06] MEDS ORDERED: Zithromax 250 MG TABLET ONE (17:57)
[2017-12-06 18:16] VITALS: BP 146/88; PULSE 72; O2SAT 97
--- NOTE | 2017-12-06 21:21 | XRAY ---
Indication: Short of breath, productive cough, and pain. History COPD. Comparison: March 03, 2017. Portable chest again demonstrates normal heart, lungs, and bony thorax.
== END 2017-12-06 18:16 | disposition home or self-care (01) ==
LOC: ED 13:42
DX: J44.1 Chronic obstructive pulmonary disease with (acute) exacerbation (principal); R20.2 Paresthesia of skin; Z79.899 Other long term (current) drug therapy; R71.8 Other abnormality of red blood cells; Z86.73 Personal history of transient ischemic attack (TIA), and cerebral infarction without residual deficits
CPT/HCPCS: 36000; 36415; 71045; 80053; 82805; 83605; 83880; 84484; 85025; 85379; 85610; 85730; 87040; 87070; 93005; 93041; 94640; 96360; 96365; 96374; 99285; J0696; J2930; A9270-GY

== ENCOUNTER 2018-03-08 10:17 | Day surgery (SDC) | payer OTHER ==
--- NOTE | 2018-03-08 08:08 | HP ---
DATE OF SURGERY: 03/08/2018 HISTORY OF PRESENT ILLNESS: The patient is a 57 year-old who for a while had lesion on her head enlarging now, question of enlarging lump or scalp cyst. It causes more symptoms when she lara or brushes her hair. She is desiring excisional biopsy given increased symptoms. PAST MEDICAL HISTORY: Chronic obstructive pulmonary disease, emphysema. History of mini-stroke in the past. PAST SURGICAL HISTORY: Right arm surgery. Cyst taken off an ovary in the past in the past. MEDICATIONS: Lyrica, omeprazole, meloxicam, Flonase, Atorvastatin, metoprolol, Ventolin, Anoro, Fosamax. ALLERGIES: NKDA. FAMILY HISTORY: Cancer, heart disease. SOCIAL HISTORY: Half pack per day smoker, denies alcohol abuse. REVIEW OF SYSTEMS: Twelve systems reviewed. No chest pain or palpitations other systems negative or noncontributory as above and per preadmission questionnaire. PHYSICAL EXAMINATION: GENERAL: No acute distress. HEENT: Scalp she has got a lump or cyst on her scalp. NECK: No JVD. CHEST: Equal excursion, nonlabored breathing. Breath sounds symmetrical. She has history of chronic obstructive pulmonary disease. CVS: Regular rhythm. ABDOMEN: Soft. No peritoneal signs. EXTREMITIES: No significant edema. NEURO: Alert, moving extremities symmetrically. No gross motor deficits noted. IMPRESSION: Enlarging painful symptomatic scalp cyst or nodule. I feel the patient would benefit from excision and biopsy. Risks and benefits explained in detail including but not limited to bleeding or infection, risk of wound dehiscence possibly requiring packing, risk of anesthesia, deep venous thrombosis, pulmonary embolism, pneumonia, risk of aches, pains, burning or numbness possibly senior living or chronic in nature. She understands what we excise will not recur but she could get a similar cyst or nodule adjacent to or elsewhere on her scalp or body. She understands and agrees to the planned procedure, will proceed with excision and biopsy of scalp cyst or nodule as an outpatient.
[~2018-03-08 10:17] MED LIST: Lactated Ringers 1,000 ML IV ONE; Lactated Ringers 1,000 ML IV SCH; Sensorcaine 0.25% 10 ML ONE
[2018-03-08] MEDS ORDERED: Zemuron 100 MG/10 ML IJ ONE (10:18)
[2018-03-08] MEDS ORDERED: Versed 2 MG/2 ML Injection IV ONE (10:18)
[2018-03-08] MEDS ORDERED: DIPRIVAN 200 MG/20 ML IV ONE (10:18)
[2018-03-08] MEDS ORDERED: SUBLIMAZE 100 MCG/2 ML IV ONE (10:18)
[2018-03-08] MEDS ORDERED: LIDOCAINE HCL 2% 100 MG/5 ML IJ ONE (10:18)
[2018-03-08] MEDS ORDERED: SUBLIMAZE 100 MCG/2 ML ONE (13:44)
[2018-03-08 14:49] VITALS: BP 146/78; PULSE 78; O2SAT 97
--- NOTE | 2018-03-08 15:23 | OP ---
SURGERY DATE/TIME: 03/08/2018 1242 PREOPERATIVE DIAGNOSIS: Enlarging symptomatic scalp cyst or nodule. POSTOPERATIVE DIAGNOSIS: Enlarging symptomatic scalp cyst or nodule. PROCEDURE: Excisional biopsy scalp cyst (approximately 1.2 cm with margins). SURGEON: Dr. Drew Brown. ANESTHESIA: General. ESTIMATED BLOOD LOSS: Minimal. INDICATIONS: As noted above. Risks and benefits explained in detail and not limited to and consent obtained. The site confirmed with the patient in the preoperative holding area. DESCRIPTION OF PROCEDURE AND FINDINGS: She is taken to the operating room. General anesthesia introduced. She is placed in lateral position. Her scalp is prepped and draped in usual sterile fashion. After official time out and no disagreement with planned procedure including a small sliver of skin over the top, dissection was carried down circumferentially around this what appeared to be scalp cyst carefully dissected from the underlying fascia and passed off. It measured about 1.2 cm with margins. The wound was irrigated out. A small amount of ooze from the skin. Otherwise it had good hemostasis noted. The wound was then closed with simple interrupted and vertical mattress 3-0 Prolene, some antibiotic ointment and sterile dressing applied with head wrap with the patient to be transferred to recovery room after that. Findings discussed with the patient out in the waiting area. I will see her back in the office next week to remove the sutures.
== END 2018-03-08 14:50 | disposition home or self-care (01) ==
LOC: SDC 10:17
PROVIDERS: ATTEND Surgery
DX: L72.0 Epidermal cyst (principal); R20.8 Other disturbances of skin sensation; J44.9 Chronic obstructive pulmonary disease, unspecified; Z86.73 Personal history of transient ischemic attack (TIA), and cerebral infarction without residual deficits; Z79.899 Other long term (current) drug therapy; Z72.0 Tobacco use
CPT/HCPCS: 88305; 94250; J2250; J2704; J3010

== ENCOUNTER 2018-08-27 19:53 | Emergency (ER) | payer OTHER ==
--- NOTE | 2018-08-27 20:29 | ERPHSYRPT ---
- History of Present Illness Time Seen by Provider: 08/27/18 20:19 Source: patient Exam Limitations: no limitations Patient Subjective Stated Complaint: Pt c/o dry cough x 4-5 days, subjective fever but not taken at home. Pt c/o headache from coughing. hx copd Triage Nursing Assessment: pink/warm/dry, resp easy, a&ox4, steady gait, no distress noted. Physician History: C/o nonproductive cough x 4-5 days, sore throat, congestion, denies fever, chills, chest pain, SOB, nausea, vomiting, other complaints. She is smoker, using Albuterol inhaler. C/o chest soreness, when coughing. Timing/Duration: day(s) (4-5) Cough Quality/Degree: moderate, dry cough Possible Cause: frequent episodes Modifying Factors: Improves With: albuterol inhaler Associated Symptoms: chest pain/soreness, cough, nasal congestion, sore throat Allergies/Adverse Reactions: coconut Allergy (Verified 08/27/18 20:55) Home Medications: Alendronate Sodium/Vitamin D3 [Fosamax Plus D 70 mg-2,800 Iu] 1 each PO UD 02/26 [History] Meloxicam 7.5 mg [Mobic 7.5 MG] 7.5 mg PO DAILY 02/27/16 [History] Pregabalin [Lyrica] 50 mg PO BID 02/27/16 [History] Fluticasone Propionate [Flonase NASAL] 16 gm NS DAILY 02/20/17 [History] Albuterol Sulfate [Ventolin Hfa] 18 gm IH Q4HPRN PRN 03/08/18 [History] Atorvastatin Calcium [Lipitor] 20 mg PO HS 03/08/18 [History] Benzonatate [Tessalon Perle] 100 mg PO TID 03/08/18 [History] Losartan Potassium 50 mg [Cozaar 50 MG] 50 mg PO DAILY 03/08/18 [History] Metoprolol Succinate [Toprol Xl] 25 mg PO DAILY 03/08/18 [History] Omeprazole 20 mg PO BID 03/08/18 [History] Umeclidinium Brm/Vilanterol Tr [Anoro Ellipta 62.5-25 Mcg INH] 1 each IH BID 06/21 [History] Hx Tetanus, Diphtheria Vaccination/Date Given: Yes Hx Influenza Vaccination/Date Given: Yes Hx Pneumococcal Vaccination/Date Given: No - Review of Systems Constitutional: No Symptoms Eyes: No Symptoms Ears, Nose, & Throat: Nose Congestion, Sinus Drainage, Throat Pain Respiratory: Cough, No Dyspnea, No Stridor Cardiac: No Chest Pain, No Edema Abdominal/Gastrointestinal: No Symptoms Genitourinary Symptoms: No Symptoms Musculoskeletal: No Symptoms Skin: No Symptoms Neurological: No Symptoms All Other Systems: Reviewed and Negative - Past Medical History Pertinent Past Medical History: Yes Neurological History: TIA ENT History: No Pertinent History Cardiac History: Hypertension Respiratory History: COPD, Emphysema Endocrine Medical History: Adrenal Insufficiency Musculoskeletal History: Osteoarthritis, Osteoporosis GI Medical History: GERD, Hemorrhoids History: No Pertinent History Psycho-Social History: No Pertinent History Female Reproductive Disorders: Other Other Medical History: TIA "a few years ago" she had R sided numbness. cysts on ovaries - Past Surgical History Past Surgical History: Yes Neuro Surgical History: No Pertinent History Cardiac: No Pertinent History Respiratory: No Pertinent History Gastrointestinal: No Pertinent History Genitourinary: No Pertinent History Musculoskeletal: Orthopedic Surgery Female Surgical History: Other Other Surgical History: rt arm,ovarian cyst removed, back "defuse" L4-5 and compression fracture repair - Social History Smoking Status: Current every day smoker How long have you smoked: 25 Exposure to second hand smoke: Yes Drug Use: none Patient Lives Alone: Yes - Female History Hx Now: No - Nursing Vital Signs Nursing Vital Signs: Initial Vital Signs Temperature 98.6 F 08/27/18 20:07 Pulse Rate 87 08/27/18 20:07 Respiratory Rate 18 08/27/18 20:07 Blood Pressure 155/79 08/27/18 20:07 O2 Sat by Pulse Oximetry 98 08/27/18 20:07 Pain Scale Pain Intensity 0 - Physical Exam General Appearance: no apparent distress Ears, Nose, Throat Exam: normal ENT inspection, pharynx normal, moist mucous membranes Neck Exam: normal inspection, non-tender, supple, No carotid bruit, No JVD Respiratory Exam: airway intact, rhonchi (few, scattered, bilateral), No chest tenderness, No respiratory distress Cardiovascular Exam: regular rate/rhythm, normal heart sounds, normal peripheral pulses, No murmur Gastrointestinal/Abdomen Exam: soft, normal bowel sounds, No tenderness, No distention, No mass, No guarding, No rebound, No organomegaly Extremity Exam: normal inspection, No calf tenderness, No regis's sign, No pedal edema Neurologic Exam: alert, oriented x 3, cooperative, normal mood/affect Skin Exam: normal color, warm, dry, No rash, No petechiae, No cyanosis Lymphatic Exam: No adenopathy SpO2 Interpretation: normal SpO2: 98 O2 Delivery: Room Air - Course Nursing assessment & vital signs reviewed: Yes EKG Interpreted by Me: RATE (78/min), NORMAL AXIS, NORMAL INTERVALS, NORMAL QRS , NORMAL ST-T - Radiology Exams Chest X-ray Interpretation: Interpreted by me, Negative Ordered Tests: Active Orders 24 hr Category Date Time Status EKG-ER Only STAT Care 08/27/18 20:29 Active IV Insertion STAT Care 08/27/18 20:29 Active CHEST 2 VIEWS (PA AND LAT) Stat Exams 08/27/18 20:23 Ordered CBC W DIFF Stat Lab 08/27/18 20:44 Completed CK-Creatinine Phosphokinase Stat Lab 08/27/18 20:44 Completed CMP Stat Lab 08/27/18 20:44 Completed Manual Differential NC Stat Lab 08/27/18 20:44 Completed NT PRO BNP Stat Lab 08/27/18 20:44 Completed TROPONIN Q3H Lab 08/27/18 20:44 Completed TROPONIN Q3H Lab 08/27/18 23:30 Ordered TROPONIN Q3H Lab 08/28/18 02:30 Ordered TROPONIN Q3H Lab 08/28/18 05:30 Ordered TROPONIN Q3H Lab 08/28/18 08:30 Ordered Lab/Rad Data: Laboratory Result Diagrams 08/27/18 20:44 08/27/18 20:44 Laboratory Results 08/27/18 08/27/18 08/27/18 Range/Units 20:44 20:44 20:44 WBC 7.0 (4.0-10.5) K/mm3 RBC 4.16 (4.1-5.4) M/mm3 Hgb 12.1 (12.0-16.0) gm/dl Hct 36.5 (35-47) % MCV 87.7 (78-100) fl MCH 29.1 (26-32) pg MCHC 33.2 (32-36) g/dl RDW 13.7 (11.5-14.0) % Plt Count 316 (150-450) K/mm3 Segmented Neutrophils 41 (36.0-66.0) % Band Neutrophils 1 (0.0-2.0) % Lymphocytes (Manual) 34 (24-44) % Monocytes (Manual) 6 (0.0-12.0) % Eosinophils (Manual) 5 H (0.00-3.0) % Basophils (Manual) 1 (0.0-1.0) % Promyelocytes 12 % Hypochromia 1+ Platelet Estimate NORMAL (NORMAL) RBC Morphology ABNORMAL Poikilocytosis 2+ Anisocytosis 2+ Sodium 137 (137-145) mmol/L Potassium 4.4 (3.5-5.1) mmol/L Chloride 100 (98-107) mmol/L Carbon Dioxide 26 (22-30) mmol/L Anion Gap 15.2 H (5-15) MEQ/L BUN 16 (7-17) mg/dL Creatinine 0.88 (0.52-1.04) mg/dL Estimated GFR > 60.0 ML/MIN Glucose 97 (74-106) mg/dL Calcium 8.9 (8.4-10.2) mg/dL Total Bilirubin 0.20 (0.2-1.3) mg/dL AST 22 (14-36) U/L ALT 12 (0-35) U/L Alkaline Phosphatase 71 (38-126) U/L Creatine Kinase 123 (30-135) U/L Troponin I < 0.012 (0.000-0.034) ng/mL NT-Pro-B Natriuret Pep 53.3 (0-900) pg/mL Serum Total Protein 7.2 (6.3-8.2) g/dL Albumin 3.9 (3.5-5.0) g/dL Group A Strep Antibody (NEGATIVE) 08/27/18 Range/Units 20:32 WBC (4.0-10.5) K/mm3 RBC (4.1-5.4) M/mm3 Hgb (12.0-16.0) gm/dl Hct (35-47) % MCV (78-100) fl MCH (26-32) pg MCHC (32-36) g/dl RDW (11.5-14.0) % Plt Count (150-450) K/mm3 Segmented Neutrophils (36.0-66.0) % Band Neutrophils (0.0-2.0) % Lymphocytes (Manual) (24-44) % Monocytes (Manual) (0.0-12.0) % Eosinophils (Manual) (0.00-3.0) % Basophils (Manual) (0.0-1.0) % Promyelocytes % Hypochromia Platelet Estimate (NORMAL) RBC Morphology Poikilocytosis Anisocytosis Sodium (137-145) mmol/L Potassium (3.5-5.1) mmol/L Chloride (98-107) mmol/L Carbon Dioxide (22-30) mmol/L Anion Gap (5-15) MEQ/L BUN (7-17) mg/dL Creatinine (0.52-1.04) mg/dL Estimated GFR ML/MIN Glucose (74-106) mg/dL Calcium (8.4-10.2) mg/dL Total Bilirubin (0.2-1.3) mg/dL AST (14-36) U/L ALT (0-35) U/L Alkaline Phosphatase (38-126) U/L Creatine Kinase (30-135) U/L Troponin I (0.000-0.034) ng/mL NT-Pro-B Natriuret Pep (0-900) pg/mL Serum Total Protein (6.3-8.2) g/dL Albumin (3.5-5.0) g/dL Group A Strep Antibody NEGATIVE (NEGATIVE) - Progress Progress: unchanged Air Movement: good Progress Note: 08/27/18 21:32 We reviewed her results, and discussed with her, she has been afebrile, stable, will discharge her to rest x 2-3 days, drink plenty of fluids, and follow up with her physician next week, she was given Medrol dosepak and Z-roshan, and advised to continue Albuterol inhaler. Blood Culture(s) Obtained: No Antibiotics given: Yes Counseled pt/family regarding: lab results, diagnosis, need for follow-up, rad results - Departure Departure Disposition: Home Clinical Impression: COPD with exacerbation, Bronchitis Condition: Stable Critical Care Time: No Referrals: MELE MITCHELL [Primary Care Provider] - Instructions: Chronic Obstructive Pulmonary Disease, Cough, Adult (DC) Additional Instructions: Continue Albuterol as directed, drink plenty of fluids, and rest x 2-3 days, follow up with your physician next week, return if severe shortness of breath, chest pain, vomiting, fever> 102 F! Prescriptions: Azithromycin [Zithromax] 250 mg PO UD #1 packet Methylprednisolone Packet [Medrol Dosepack] 4 mg PO UD #1 packet
[2018-08-27 20:46] LABS: Hematocrit 36.5 % (35-47); Hemoglobin 12.1 gm/dl (12.0-16.0); Mean Cell Volume 87.7 fl (78-100); Mean Corpuscular Hemoglobin 29.1 pg (26-32); Mean Corpuscular Hgb Concent. 33.2 g/dl (32-36); Platelet Count 316 K/mm3 (150-450); Red Blood Count 4.16 M/mm3 (4.1-5.4); Red Cell Distribution Width 13.7 % (11.5-14.0)
[2018-08-27 21:07] LABS: ALBUMIN 3.9 g/dL (3.5-5.0); ALKALINE PHOSPHATASE 71 U/L (38-126); ANION GAP 15.2 MEQ/L (5-15); BLOOD UREA NITROGEN 16 mg/dL (7-17); CHLORIDE 100 mmol/L (98-107); CK-Creatinine Phosphokinase 123 U/L (30-135); Calcium 8.9 mg/dL (8.4-10.2); Carbon Dioxide 26 mmol/L (22-30); Creatinine 1 0.88 mg/dL (0.52-1.04); Glucose 97 mg/dL (74-106); NT PRO BNP 53.3 pg/mL (0-900); Potassium 4.4 mmol/L (3.5-5.1); SGOT/AST 22 U/L (14-36); SGPT/ALT 12 U/L (0-35); SODIUM 137 mmol/L (137-145); Total Protein 7.2 g/dL (6.3-8.2)
[2018-08-27 21:27] LABS: BAND 1 % (0.0-2.0); Basophil 1 % (0.0-1.0); Eosinophil 5 % (0.00-3.0); Lymphocytes 34 % (24-44); Monocyte 6 % (0.0-12.0); Neutrophils 41 % (36.0-66.0); Platelet Estimate NORMAL (NORMAL); Promyelocyte 12 %; Total Cells Counted 100
[2018-08-27 21:28] LABS: ANISOCYTOSIS 2+; Hypochromia 1+; Poikilocytosis 2+
[2018-08-27 22:03] VITALS: BP 128/66; PULSE 76; O2SAT 96
--- NOTE | 2018-08-27 22:07 | XRAY ---
Indication: Cough. Comparison: December 06, 2017. PA/lateral chest again demonstrates normal heart and lungs. Bony thorax intact with interval L2/L3 kyphoplasty and partially visualized L4 posterior spinal hardware.
== END 2018-08-27 22:11 | disposition home or self-care (01) ==
LOC: ED 19:53
DX: J44.1 Chronic obstructive pulmonary disease with (acute) exacerbation (principal); K21.9 Gastro-esophageal reflux disease without esophagitis; M81.0 Age-related osteoporosis without current pathological fracture; Z79.899 Other long term (current) drug therapy; Z86.73 Personal history of transient ischemic attack (TIA), and cerebral infarction without residual deficits
CPT/HCPCS: 36000; 36415; 71046; 80053; 82550; 83880; 84484; 85025; 87651; 93005; 99284

== ENCOUNTER 2018-11-26 14:31 | Emergency (ER) | payer MEDICARE ==
--- NOTE | 2018-11-26 14:43 | ERPHSYRPT ---
- History of Present Illness Time Seen by Provider: 11/26/18 14:43 Source: patient, family Exam Limitations: no limitations Physician History: 58 y/o white female with chronic back pain issues and surgical procedure to lower back 5 months ago, was bending, lifting and pulling weeds for last few days. pts pain worsening. pt denies recent trauma. Method of Injury: bending, twisted, turning Quality: radiating, sharp Back Pain Location: lumbar spine, paraspinous muscles Back Pain Radiation: buttocks Severity of Pain-Max: moderate Severity of Pain-Current: moderate Modifying Factors: Improves With: movement (worsens) Associated Symptoms: denies symptoms, lower back pain, No fever, No urinary incontinence, No loss of bowel control, No constipation, No nausea, No vomiting Previous symptoms: same symptoms as today Allergies/Adverse Reactions: coconut Allergy (Verified 11/26/18 14:49) Home Medications: Alendronate Sodium/Vitamin D3 [Fosamax Plus D 70 mg-2,800 Iu] 1 each PO UD 02/26 [History] Pregabalin [Lyrica] 50 mg PO BID 02/27/16 [History] Fluticasone Propionate [Flonase NASAL] 16 gm NS DAILY 02/20/17 [History] Albuterol Sulfate [Ventolin Hfa] 18 gm IH Q4HPRN PRN 03/08/18 [History] Umeclidinium Brm/Vilanterol Tr [Anoro Ellipta 62.5-25 Mcg INH] 1 each IH BID 06/21 [History] Aspirin [Aspirin EC] 81 mg PO DAILY 11/26/18 [History] Famotidine 20 mg [Pepcid 20 MG] 20 mg PO BID 11/26/18 [History] Hx Tetanus, Diphtheria Vaccination/Date Given: Yes Hx Influenza Vaccination/Date Given: Yes Hx Pneumococcal Vaccination/Date Given: No - Review of Systems Constitutional: No Symptoms Eyes: No Symptoms Ears, Nose, & Throat: No Symptoms Respiratory: No Symptoms Cardiac: No Symptoms Abdominal/Gastrointestinal: No Symptoms Genitourinary Symptoms: No Symptoms Musculoskeletal: Back Pain, No Fall, No Injury Skin: No Symptoms Neurological: No Symptoms Psychological: No Symptoms Endocrine: No Symptoms Hematologic/Lymphatic: No Symptoms Immunological/Allergic: No Symptoms All Other Systems: Reviewed and Negative - Past Medical History Pertinent Past Medical History: Yes Neurological History: TIA ENT History: No Pertinent History Cardiac History: Hypertension Respiratory History: COPD, Emphysema Endocrine Medical History: Adrenal Insufficiency Musculoskeletal History: Osteoarthritis, Osteoporosis GI Medical History: GERD, Hemorrhoids History: No Pertinent History Psycho-Social History: No Pertinent History Female Reproductive Disorders: Other Other Medical History: TIA "a few years ago" she had R sided numbness. cysts on ovaries - Past Surgical History Past Surgical History: Yes Neuro Surgical History: No Pertinent History Cardiac: No Pertinent History Respiratory: No Pertinent History Gastrointestinal: No Pertinent History Genitourinary: No Pertinent History Musculoskeletal: Orthopedic Surgery Female Surgical History: Other Other Surgical History: rt arm,ovarian cyst removed, back "defuse" L4-5 and compression fracture repair - Social History Smoking Status: Current every day smoker How long have you smoked: 25 Exposure to second hand smoke: Yes Drug Use: none Patient Lives Alone: Yes - Nursing Vital Signs Nursing Vital Signs: Initial Vital Signs Temperature 97.5 F 11/26/18 14:41 Pulse Rate 94 H 11/26/18 14:41 Respiratory Rate 16 11/26/18 14:41 Blood Pressure 130/76 11/26/18 14:41 O2 Sat by Pulse Oximetry 99 11/26/18 14:41 Pain Scale Pain Intensity 8 - Physical Exam General Appearance: moderate distress, alert, anxiety Eye Exam: PERRL/EOMI, eyes nml inspection Ears, Nose, Throat Exam: normal ENT inspection, moist mucous membranes Neck Exam: normal inspection, non-tender, supple, full range of motion Respiratory Exam: normal breath sounds, lungs clear, airway intact, No chest tenderness, No respiratory distress Gastrointestinal Exam: No tenderness Pelvic Exam: not done Rectal Exam: not done Back Exam: normal inspection, normal range of motion, No CVA tenderness, No vertebral tenderness Extremity Exam: normal inspection, normal range of motion, pelvis stable Neurologic Exam: alert, oriented x 3, 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, 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 Skin Exam: normal color, warm, dry Lymphatic Exam: No adenopathy SpO2 Interpretation: normal O2 Delivery: Room Air - Course Nursing assessment & vital signs reviewed: Yes Ordered Tests: Medication Summary Discontinued Medications Generic Name Dose Route Start Last Admin Trade Name Freq PRN Reason Stop Dose Admin Hydromorphone HCl 1 mg 11/26/18 15:00 11/26/18 15:11 Hydromorphone 1 Mg/Ml Ampule IM 11/26/18 15:01 1 mg STAT ONE Administration Hydromorphone HCl Confirm 11/26/18 15:06 Hydromorphone 1 Mg/Ml Ampule Administered 11/26/18 15:07 Dose 1 mg .ROUTE .STK-MED ONE Methylprednisolone Sodium Succinate 125 mg 11/26/18 15:01 11/26/18 15:10 Solu-Medrol 125 Mg IM 11/26/18 15:02 125 mg STAT ONE Administration Methylprednisolone Sodium Succinate Confirm 11/26/18 15:07 Solu-Medrol 125 Mg Administered 11/26/18 15:08 Dose 125 mg .ROUTE .STK-MED ONE Ondansetron HCl 4 mg 11/26/18 15:03 11/26/18 15:13 Zofran Odt 4 Mg PO 11/26/18 15:04 4 mg STAT ONE Administration Ondansetron HCl Confirm 11/26/18 15:06 Zofran 4 Mg/2 Ml Vial Administered 11/26/18 15:07 Dose 4 mg .ROUTE .STK-MED ONE Ondansetron HCl Confirm 11/26/18 15:13 Zofran Odt 4 Mg Administered 11/26/18 15:14 Dose 4 mg .ROUTE .STK-MED ONE - Progress Progress: improved, pain not gone completely, re-examined Counseled pt/family regarding: diagnosis, need for follow-up - Departure Departure Disposition: Home Clinical Impression: Low back pain Condition: Stable Critical Care Time: No Referrals: MELE MITCHELL [Primary Care Provider] - Additional Instructions: take medications as prescribed. follow up with primary doctor for further management. Prescriptions: Carisoprodol 350 mg [Soma 350 mg] 350 mg PO Q12H PRN PRN #8 tablet PRN Reason: Muscle Spasms Oxycodone HCl/Acetaminophen [Percocet 5-325 mg Tablet] 1 each PO Q12H PRN PRN # 8 tablet MDD 2 PRN Reason: Pain
[2018-11-26] MEDS ORDERED: Hydromorphone 1 mg/ml Ampule IM ONE (15:00)
[2018-11-26] MEDS ORDERED: solu-MEDROL 125 MG IM ONE (15:01)
[2018-11-26] MEDS ORDERED: ZOFRAN ODT 4 MG PO ONE (15:03)
[2018-11-26] MEDS ORDERED: Hydromorphone 1 mg/ml Ampule ONE (15:06)
[2018-11-26] MEDS ORDERED: Zofran 4 MG/2 ML VIAL ONE (15:06)
[2018-11-26] MEDS ORDERED: solu-MEDROL 125 MG ONE (15:07)
[2018-11-26] MEDS ORDERED: ZOFRAN ODT 4 MG ONE (15:13)
[2018-11-26 16:39] VITALS: BP 122/67; PULSE 65; O2SAT 96
== END 2018-11-26 16:34 | disposition home or self-care (01) ==
LOC: ED 14:31
DX: M54.5 Low back pain (principal); G89.29 Other chronic pain
CPT/HCPCS: 96372; 99284; J1170; J2405; J2930; Q0162

== ENCOUNTER 2019-04-11 19:17 | Emergency (ER) | payer MEDICARE ==
[2019-04-11] MEDS ORDERED: BABY ASPIRIN 81 MG CHEW PO ONE (19:22)
--- NOTE | 2019-04-11 19:22 | ERPHSYRPT ---
- History of Present Illness Time Seen by Provider: 04/11/19 19:22 Historian: patient, family Exam Limitations: no limitations Physician History: 58 y/o white female presents with sharp central substernal cp that radiates into her neck. 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 no cardiac hx. never had before. Timing/Duration: today Activities at Onset: other (smoking) Quality: sharpness, stabbing Location: substernal, central Chest Pain Radiation: jaw, neck Severity of Pain-Max: moderate Severity of Pain-Current: moderate Modifying Factors: Improves With: nothing Associated Symptoms: denies symptoms Prior Chest Pain/Cardiac Workup: no prior cardiac workup Nitro Today/Relief: no nitro taken today Aspirin Treatment Today: no aspirin today Allergies/Adverse Reactions: coconut Allergy (Verified 11/26/18 14:49) Home Medications: Alendronate Sodium/Vitamin D3 [Fosamax Plus D 70 mg-2,800 Iu] 1 each PO UD 02/26 [History] Pregabalin [Lyrica] 50 mg PO BID 02/27/16 [History] Fluticasone Propionate [Flonase NASAL] 16 gm NS DAILY 02/20/17 [History] Albuterol Sulfate [Ventolin Hfa] 18 gm IH Q4HPRN PRN 03/08/18 [History] Umeclidinium Brm/Vilanterol Tr [Anoro Ellipta 62.5-25 Mcg INH] 1 each IH BID 06/21 [History] Aspirin [Aspirin EC] 81 mg PO DAILY 11/26/18 [History] Famotidine 20 mg [Pepcid 20 MG] 20 mg PO BID 11/26/18 [History] Hx Tetanus, Diphtheria Vaccination/Date Given: Yes Hx Influenza Vaccination/Date Given: Yes Hx Pneumococcal Vaccination/Date Given: No - Review of Systems Constitutional: No Symptoms Eyes: No Symptoms Ears, Nose, & Throat: No Symptoms Respiratory: No Symptoms Cardiac: Chest Pain Abdominal/Gastrointestinal: No Symptoms Genitourinary Symptoms: No Symptoms Musculoskeletal: No Symptoms Skin: No Symptoms Neurological: No Symptoms Psychological: No Symptoms Endocrine: No Symptoms Hematologic/Lymphatic: No Symptoms Immunological/Allergic: No Symptoms All Other Systems: Reviewed and Negative - Past Medical History Pertinent Past Medical History: Yes Neurological History: TIA ENT History: No Pertinent History Cardiac History: Hypertension Respiratory History: COPD, Emphysema Endocrine Medical History: Adrenal Insufficiency Musculoskeletal History: Osteoarthritis, Osteoporosis GI Medical History: GERD, Hemorrhoids History: No Pertinent History Psycho-Social History: No Pertinent History Female Reproductive Disorders: Other Other Medical History: TIA "a few years ago" she had R sided numbness. cysts on ovaries - Past Surgical History Past Surgical History: Yes Neuro Surgical History: No Pertinent History Cardiac: No Pertinent History Respiratory: No Pertinent History Gastrointestinal: No Pertinent History Genitourinary: No Pertinent History Musculoskeletal: Orthopedic Surgery Female Surgical History: Other Other Surgical History: rt arm,ovarian cyst removed, back "defuse" L4-5 and compression fracture repair - Social History Smoking Status: Current every day smoker How long have you smoked: 25 Exposure to second hand smoke: Yes Drug Use: none Patient Lives Alone: Yes - Nursing Vital Signs Nursing Vital Signs: Initial Vital Signs Temperature 98.6 F 04/11/19 19:18 Pulse Rate 93 H 04/11/19 19:18 Respiratory Rate 24 04/11/19 19:18 Blood Pressure 166/91 04/11/19 19:18 O2 Sat by Pulse Oximetry 98 04/11/19 19:18 Pain Scale Pain Intensity 8 - Physical Exam General Appearance: mild distress, alert, anxiety Eye Exam: PERRL/EOMI, eyes nml inspection Ears, Nose, Throat Exam: normal ENT inspection, moist mucous membranes Neck Exam: normal inspection, non-tender, supple, full range of motion Respiratory Exam: normal breath sounds, chest tenderness, lungs clear, airway intact, No respiratory distress Cardiovascular Exam: regular rate/rhythm, normal heart sounds, normal peripheral pulses Gastrointestinal/Abdomen Exam: soft, normal bowel sounds, No tenderness Pelvic Exam: not done Rectal Exam: not done Back Exam: normal inspection, normal range of motion, No CVA tenderness, No vertebral tenderness Extremity Exam: normal inspection, normal range of motion, pelvis stable Neurologic Exam: alert, oriented x 3, 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 no acute changes. ) Ordered Tests: Active Orders 24 hr Category Date Time Status Platform Consultant STAT Care 04/11/19 19:23 Active EKG-ER Only STAT Care 04/11/19 19:22 Active IV Insertion STAT Care 04/11/19 19:22 Active Pulse Oximetry (ED) STAT Care 04/11/19 19:22 Active CHEST 1 VIEW (PORTABLE) Stat Exams 04/11/19 19:23 Taken CBC W DIFF Stat Lab 04/11/19 19:43 Completed CMP Stat Lab 04/11/19 19:43 Completed NT PRO BNP Stat Lab 04/11/19 19:43 Completed PROTIME WITH INR Stat Lab 04/11/19 19:43 Completed TROPONIN Q3H Lab 04/11/19 19:43 Completed TROPONIN Q3H Lab 04/11/19 22:33 Completed TROPONIN Q3H Lab 04/12/19 01:30 Ordered TROPONIN Q3H Lab 04/12/19 04:30 Ordered TROPONIN Q3H Lab 04/12/19 07:30 Ordered Medication Summary Discontinued Medications Generic Name Dose Route Start Last Admin Trade Name Freq PRN Reason Stop Dose Admin Aspirin 324 mg 04/11/19 19:22 04/11/19 19:44 Baby Aspirin 81 Mg Chew PO 04/11/19 19:23 324 mg STAT ONE Administration Morphine Sulfate 4 mg 04/11/19 19:44 04/11/19 20:09 Morphine Sulfate 4 Mg Inj IV 04/11/19 19:45 4 mg STAT ONE Administration Morphine Sulfate Confirm 04/11/19 20:07 Morphine Sulfate 4 Mg Inj Administered 04/11/19 20:08 Dose 4 mg .ROUTE .STK-MED ONE Ondansetron HCl 4 mg 04/11/19 19:45 04/11/19 20:09 Zofran 4 Mg/2 Ml Vial IV 04/11/19 19:46 4 mg STAT ONE Administration Ondansetron HCl Confirm 04/11/19 20:06 Zofran 4 Mg/2 Ml Vial Administered 04/11/19 20:07 Dose 4 mg .ROUTE .STK-MED ONE Lab/Rad Data: Laboratory Result Diagrams 04/11/19 19:43 04/11/19 19:43 Laboratory Results 04/11/19 04/11/19 04/11/19 Range/Units 22:33 19:43 19:43 WBC (4.0-10.5) K/mm3 RBC (4.1-5.4) M/mm3 Hgb (12.0-16.0) gm/dl Hct (35-47) % MCV (78-100) fl MCH (26-32) pg MCHC (32-36) g/dl RDW (11.5-14.0) % Plt Count (150-450) K/mm3 MPV (7.5-11.0) fl Gran % (36.0-66.0) % Eos # (Auto) (0-0.5) Absolute Lymphs (auto) (1.0-4.6) Absolute Monos (auto) (0.0-1.3) Lymphocytes % (24.0-44.0) % Monocytes % (0.0-12.0) % Eosinophils % (0.00-5.0) % Basophils % (0.0-0.4) % Absolute Granulocytes (1.4-6.9) Basophils # (0-0.4) PT 10.6 (9.95-12.35) SECONDS INR 0.94 (0.8-3.0) Sodium (137-145) mmol/L Potassium (3.5-5.1) mmol/L Chloride (98-107) mmol/L Carbon Dioxide (22-30) mmol/L Anion Gap (5-15) MEQ/L BUN (7-17) mg/dL Creatinine (0.52-1.04) mg/dL Estimated GFR ML/MIN Glucose (74-106) mg/dL Calcium (8.4-10.2) mg/dL Total Bilirubin (0.2-1.3) mg/dL AST (14-36) U/L ALT (0-35) U/L Alkaline Phosphatase (38-126) U/L Troponin I < 0.012 < 0.012 (0.000-0.034) ng/mL NT-Pro-B Natriuret Pep (0-900) pg/mL Serum Total Protein (6.3-8.2) g/dL Albumin (3.5-5.0) g/dL 04/11/19 04/11/19 Range/Units 19:43 19:43 WBC 7.4 (4.0-10.5) K/mm3 RBC 4.25 (4.1-5.4) M/mm3 Hgb 12.5 (12.0-16.0) gm/dl Hct 38.2 (35-47) % MCV 89.9 (78-100) fl MCH 29.4 (26-32) pg MCHC 32.7 (32-36) g/dl RDW 13.9 (11.5-14.0) % Plt Count 390 (150-450) K/mm3 MPV 9.1 (7.5-11.0) fl Gran % 48.3 (36.0-66.0) % Eos # (Auto) 0.22 (0-0.5) Absolute Lymphs (auto) 3.08 (1.0-4.6) Absolute Monos (auto) 0.49 (0.0-1.3) Lymphocytes % 41.7 (24.0-44.0) % Monocytes % 6.6 (0.0-12.0) % Eosinophils % 3.0 (0.00-5.0) % Basophils % 0.4 (0.0-0.4) % Absolute Granulocytes 3.57 (1.4-6.9) Basophils # 0.03 (0-0.4) PT (9.95-12.35) SECONDS INR (0.8-3.0) Sodium 139 (137-145) mmol/L Potassium 4.0 (3.5-5.1) mmol/L Chloride 102 (98-107) mmol/L Carbon Dioxide 29 (22-30) mmol/L Anion Gap 11.8 (5-15) MEQ/L BUN 16 (7-17) mg/dL Creatinine 1.05 H (0.52-1.04) mg/dL Estimated GFR 57.2 ML/MIN Glucose 80 (74-106) mg/dL Calcium 9.4 (8.4-10.2) mg/dL Total Bilirubin 0.20 (0.2-1.3) mg/dL AST 29 (14-36) U/L ALT 13 (0-35) U/L Alkaline Phosphatase 69 (38-126) U/L Troponin I (0.000-0.034) ng/mL NT-Pro-B Natriuret Pep 48.5 (0-900) pg/mL Serum Total Protein 8.1 (6.3-8.2) g/dL Albumin 4.5 (3.5-5.0) g/dL - Progress Progress: improved Air Movement: good Progress Note: 04/11/19 23:27 cxr- no acute process. pt denies cp at time of discharge. Blood Culture(s) Obtained: No Antibiotics given: No Counseled pt/family regarding: lab results, diagnosis, need for follow-up, rad results - Departure Departure Disposition: Home Clinical Impression: Chest pain Condition: Stable Critical Care Time: Yes Referrals: MELE MITCHELL [Primary Care Provider] - Additional Instructions: stop smoking. follow up with primary doctor for further management
[2019-04-11] MEDS ORDERED: MORPHINE SULFATE 4 MG INJ IV ONE (19:44)
[2019-04-11] MEDS ORDERED: Zofran 4 MG/2 ML VIAL IV ONE (19:45)
[2019-04-11 19:55] LABS: Absolute Neutrophil Ct (ANC) 3.57 (1.4-6.9); BASOPHIL % 0.4 % (0.0-0.4); Basophil (Absolute #) 0.03 (0-0.4); Eosinophil (Absolute #) 0.22 (0-0.5); Hematocrit 38.2 % (35-47); Hemoglobin 12.5 gm/dl (12.0-16.0); Lymphocyte (Absolute #) 3.08 (1.0-4.6); Lymphocytes % 41.7 % (24.0-44.0); Mean Cell Volume 89.9 fl (78-100); Mean Corpuscular Hemoglobin 29.4 pg (26-32); Mean Corpuscular Hgb Concent. 32.7 g/dl (32-36); Mean Platelet Volume 9.1 fl (7.5-11.0); Monocyte (Absolute #) 0.49 (0.0-1.3); Monocytes % 6.6 % (0.0-12.0); Neutrophil % 48.3 % (36.0-66.0); Platelet Count 390 K/mm3 (150-450); Red Blood Count 4.25 M/mm3 (4.1-5.4); Red Cell Distribution Width 13.9 % (11.5-14.0); White Blood Count 7.4 K/mm3 (4.0-10.5)
[2019-04-11 20:02] LABS: INR 0.94 (0.8-3.0); PROTIME 10.6 SECONDS (9.95-12.35)
[2019-04-11] MEDS ORDERED: Zofran 4 MG/2 ML VIAL ONE (20:06)
[2019-04-11] MEDS ORDERED: MORPHINE SULFATE 4 MG INJ ONE (20:07)
[2019-04-11 20:17] LABS: ALBUMIN 4.5 g/dL (3.5-5.0); ANION GAP 11.8 MEQ/L (5-15); BILIRUBIN,TOTAL 0.2 mg/dL (0.2-1.3); Calcium 9.4 mg/dL (8.4-10.2); Creatinine 1 1.05 mg/dL (0.52-1.04); NT PRO BNP 48.5 pg/mL (0-900); Total Protein 8.1 g/dL (6.3-8.2)
[2019-04-11 23:38] VITALS: BP 109/65; PULSE 71; O2SAT 97
--- NOTE | 2019-04-12 08:47 | XRAY ---
Indication: Chest pain and cough. Comparison: April 07, 2019. Portable chest markedly less inflated crowding the lung bases. Remaining heart and lungs unremarkable. No new/acute findings.
== END 2019-04-11 23:41 | disposition home or self-care (01) ==
LOC: ED 19:17
DX: R07.89 Other chest pain (principal); Z79.899 Other long term (current) drug therapy; I10 Essential (primary) hypertension; E27.40 Unspecified adrenocortical insufficiency
CPT/HCPCS: 36000; 36415; 71045; 80053; 83880; 84484; 85025; 85610; 93005; 93041; 94760; 96374; 96375; 99284; J2270; J2405; A9270-GY

== ENCOUNTER 2019-05-19 17:33 | Emergency (ER) | payer MEDICARE ==
--- NOTE | 2019-05-19 18:17 | ERPHSYRPT ---
- History of Present Illness Time Seen by Provider: 05/19/19 18:10 Source: patient Exam Limitations: no limitations Patient Subjective Stated Complaint: pt here to have her partial plate in her mouth, she received plate today and states the dentist did not show her how to remove it, Triage Nursing Assessment: pt alert, walked in, resp eas skin wcandelariap, has partial plate to lower jaw Physician History: Patient is here because she did not remove her partial plate. It was placed by her dentist approximately 2 hours prior to arrival. She has no other symptoms. Timing/Duration: hours Severity: mild ENT Location: mouth Prearrival Treatment: no prearrival treatment Modifying Factors: Improves With: nothing Associated Symptoms: denies symptoms Allergies/Adverse Reactions: coconut Allergy (Verified 05/19/19 17:54) Home Medications: Fluticasone Propionate [Flonase NASAL] 16 gm NS DAILY 02/20/17 [History] Albuterol Sulfate [Ventolin Hfa] 18 gm IH Q4HPRN PRN 03/08/18 [History] Umeclidinium Brm/Vilanterol Tr [Anoro Ellipta 62.5-25 Mcg INH] 1 each IH BID 06/21 [History] Aspirin [Aspirin EC] 81 mg PO DAILY 11/26/18 [History] Famotidine 20 mg [Pepcid 20 MG] 20 mg PO BID 11/26/18 [History] Hx Tetanus, Diphtheria Vaccination/Date Given: No Hx Influenza Vaccination/Date Given: Yes Hx Pneumococcal Vaccination/Date Given: No Immunizations Up to Date: No - Review of Systems Constitutional: No Fever, No Chills Eyes: No Symptoms Ears, Nose, & Throat: No Symptoms Respiratory: No Cough, No Dyspnea Cardiac: No Chest Pain, No Edema, No Syncope Abdominal/Gastrointestinal: No Abdominal Pain, No Nausea, No Vomiting, No Diarrhea Genitourinary Symptoms: No Dysuria Musculoskeletal: No Back Pain, No Neck Pain Skin: No Rash Neurological: No Dizziness, No Focal Weakness, No Sensory Changes Psychological: No Symptoms Endocrine: No Symptoms All Other Systems: Reviewed and Negative - Past Medical History Pertinent Past Medical History: Yes Neurological History: TIA ENT History: No Pertinent History Cardiac History: Hypertension Respiratory History: COPD, Emphysema Endocrine Medical History: Adrenal Insufficiency Musculoskeletal History: Osteoarthritis, Osteoporosis GI Medical History: GERD, Hemorrhoids History: No Pertinent History Psycho-Social History: No Pertinent History Female Reproductive Disorders: Other Other Medical History: TIA "a few years ago" she had R sided numbness. cysts on ovaries - Past Surgical History Past Surgical History: Yes Neuro Surgical History: No Pertinent History Cardiac: No Pertinent History Respiratory: No Pertinent History Gastrointestinal: No Pertinent History Genitourinary: No Pertinent History Musculoskeletal: Orthopedic Surgery Female Surgical History: Other Other Surgical History: rt arm,ovarian cyst removed, back "defuse" L4-5 and compression fracture repair - Social History Smoking Status: Current every day smoker How long have you smoked: 25 Exposure to second hand smoke: Yes Drug Use: none Patient Lives Alone: No - Female History Hx Last Menstrual Period: post Hx Now: No - Nursing Vital Signs Nursing Vital Signs: Pain Scale Pain Intensity 10 - Physical Exam General Appearance: no apparent distress, alert Eye Exam: bilateral eye: PERRL, EOMI Nasal Exam: normal inspection Throat Exam: normal (Partial plate intact. No other pathology observed. Patient having difficulty removing plate.), pharynx normal, moist mucus membranes, No tonsillar exudate Neck Exam: supple Cardiovascular/Respiratory Exam: normal breath sounds, regular rate/rhythm Abdominal Exam: non-tender, soft Neurologic Exam: alert, oriented x 3, sensation nml, No motor deficits Skin Exam: normal color, warm, dry - Progress Progress Note: 05/19/19 18:16 EDMD easily removed partial plate. No complications. Patient has no pain. Patient requesting discharge. - Departure Departure Disposition: Home Clinical Impression: Removable partial denture with loss of occlusal relationship Condition: Stable Critical Care Time: No Referrals: MELE MITCHELL [Primary Care Provider] - Additional Instructions: Discharge/Care Plan MICHAEL FLOYD was seen on 05/19/19 in the Emergency Room. The patient was counseled regarding Diagnosis,Lab results, Imaging studies, need for follow up and when to return to the Emergency Room. Prescriptions given: Discharge Note I have spoken with the patient and/or caregivers. I have explained the patient' s condition, diagnosis and treatment plan based on the information available to me at this time. I have answered the patient's and/or caregiver's questions and addressed any concerns. The patient and/or caregivers have as good understanding of the patient's diagnosis, condition and treatment plan as can be expected at this point. The vital signs have been stable. The patient's condition is stable and appropriate for discharge from the emergency department. The patient will pursue further outpatient evaluation with the primary care physician or other designated or consulting physician as outlined in the discharge instructions. The patient and/or caregivers are agreeable to this plan of care and follow-up instructions have been explained in detail. The patient and/or caregivers have received these instruction. The patient/and or caregivers are aware that any significant change in condition or worsening of symptoms should prompt an immediate return to this or the closest emergency department or call 911.
[2019-05-19 18:28] VITALS: PULSE 84; O2SAT 98
== END 2019-05-19 18:29 | disposition home or self-care (01) ==
LOC: ED 17:33
DX: Z46.3 Encounter for fitting and adjustment of dental prosthetic device (principal)
CPT/HCPCS: 99283

== ENCOUNTER 2019-09-11 18:16 | Observation (INO) | payer MEDICARE ==
[2019-09-11] MEDS ORDERED: MORPHINE SULFATE 2 MG INJ IV ONE (18:41)
[2019-09-11] MEDS ORDERED: Sodium Chloride 0.9% 1000 ML 1,000 ML IV STA (18:41)
[2019-09-11] MEDS ORDERED: Sodium Chloride 0.9% 1000 ML 1,000 ML ONE (18:49)
[2019-09-11] MEDS ORDERED: MORPHINE SULFATE 2 MG INJ ONE (18:49)
[2019-09-11] MEDS ORDERED: Adacel Vial IM ONE ×2 (19:15→19:18)
--- NOTE | 2019-09-11 19:17 | ERPHSYRPT ---
- History of Present Illness Time Seen by Provider: 09/11/19 18:25 Source: patient Exam Limitations: no limitations Patient Subjective Stated Complaint: pt here for swelling and reddness around left eye, and pain to left eye, draining yellow Triage Nursing Assessment: pt went has had this problem for 2 weeks and went thursday to and started on drops moxiflocin Physician History: Patient is a 58-year-old female presents to our ED with complaints of swelling redness and pain around her left eye. Patient was diagnosed with conjunctivitis approximately 1 week ago. Patient was started on antibiotic eyedrops. In spite of the eyedrops her symptoms have gotten progressively worse. Patient is now experiencing swelling redness and pain around her left eye. Pain described as an ache that is well localized. No radiation. Pain worse with palpation and improved with rest. Patient denies trauma. No nausea or vomiting. No fever. No neck pain. No photophobia. Patient's vision is as it was 1 week ago when she was diagnosed with conjunctivitis. No acute interval change. Patient voices no other complaints at this time. Tetanus is not up-to-date. Timing/Duration: days (Pain around the left thigh has been progressively worsening over the past 3 days.) Severity: moderate Prearrival Treatment: no prearrival treatment Modifying Factors: Improves With: nothing Associated Symptoms: denies symptoms, voice change, No dizziness, No ear drainage, No headache, No jaw pain, No nasal foreign body, No neck pain, No ringing of ears, No sinus infection, No tooth pain Allergies/Adverse Reactions: coconut Allergy (Verified 09/11/19 18:27) Home Medications: Fluticasone Propionate [Flonase NASAL] 16 gm NS DAILY 02/20/17 [History] Albuterol Sulfate [Ventolin Hfa] 18 gm IH Q4HPRN PRN 03/08/18 [History] Umeclidinium Brm/Vilanterol Tr [Anoro Ellipta 62.5-25 Mcg INH] 1 each IH BID 06/21 [History] Aspirin [Aspirin EC] 81 mg PO DAILY 11/26/18 [History] Famotidine 20 mg [Pepcid 20 MG] 20 mg PO BID 11/26/18 [History] Losartan Potassium 1 ea DAILY 09/11/19 [History] Moxifloxacin HCl [Moxifloxacin] 1 drop QID 09/11/19 [History] Tramadol HCl 50 mg [Ultram 50 mg] 1 ea DAILY 09/11/19 [History] Hx Tetanus, Diphtheria Vaccination/Date Given: No Hx Influenza Vaccination/Date Given: Yes Hx Pneumococcal Vaccination/Date Given: No Immunizations Up to Date: Yes Travel Risk - International Travel Have you traveled outside of the country in past 3 weeks: No Have you or anyone close to you been diagnosed with or: No Do your reside in a community with a known COVID-19 case?: Yes If Yes where:: [place] - Coronavirus Screening Has patient experienced Coronavirus symptoms: No - Review of Systems Constitutional: No Symptoms, No Fever, No Chills Eyes: No Symptoms Ears, Nose, & Throat: No Symptoms Respiratory: No Symptoms, No Cough, No Dyspnea Cardiac: No Symptoms, No Chest Pain, No Edema, No Syncope Abdominal/Gastrointestinal: No Symptoms, No Abdominal Pain, No Nausea, No Vomiting, No Diarrhea Genitourinary Symptoms: No Symptoms, No Dysuria Musculoskeletal: No Symptoms, No Back Pain, No Neck Pain Skin: No Symptoms, No Rash Neurological: No Symptoms, No Dizziness, No Focal Weakness, No Sensory Changes Psychological: No Symptoms Endocrine: No Symptoms All Other Systems: Reviewed and Negative - Past Medical History Pertinent Past Medical History: Yes Neurological History: TIA ENT History: No Pertinent History Cardiac History: Hypertension Respiratory History: COPD, Emphysema Endocrine Medical History: Adrenal Insufficiency Musculoskeletal History: Osteoarthritis, Osteoporosis GI Medical History: GERD, Hemorrhoids History: No Pertinent History Psycho-Social History: No Pertinent History Female Reproductive Disorders: Other Other Medical History: TIA "a few years ago" she had R sided numbness. cysts on ovaries - Past Surgical History Past Surgical History: Yes Neuro Surgical History: No Pertinent History Cardiac: No Pertinent History Respiratory: No Pertinent History Gastrointestinal: No Pertinent History Genitourinary: No Pertinent History Musculoskeletal: Orthopedic Surgery Female Surgical History: Other Other Surgical History: rt arm,ovarian cyst removed, back "defuse" L4-5 and compression fracture repair - Social History Smoking Status: Current every day smoker How long have you smoked: 25 Exposure to second hand smoke: Yes Drug Use: none Patient Lives Alone: No - Female History Hx Last Menstrual Period: psot Hx Now: No - Nursing Vital Signs Nursing Vital Signs: Initial Vital Signs Temperature 98.1 F 09/11/19 18:20 Pulse Rate 84 09/11/19 18:20 Respiratory Rate 18 09/11/19 18:20 Blood Pressure 148/73 09/11/19 18:20 O2 Sat by Pulse Oximetry 99 09/11/19 18:20 Pain Scale Pain Intensity 5 - Physical Exam General Appearance: no apparent distress, alert Eye Exam: bilateral eye: normal inspection (Visual acuity is 20/50 bilaterally equal.), PERRL, EOMI, other (The area right around her left eye is swollen and tender and erythematous. Extraocular movement intact.) Ear Exam: left ear: other (There is cellulitis around patient's left eye. The area is tender. Overlying soft tissue intact. No signs of trauma. No ecchymosis. No open or draining lesions.), bilateral ear: auricle normal, canal normal, TM normal Nasal Exam: normal inspection Throat Exam: pharynx normal, moist mucus membranes, No tonsillar exudate Neck Exam: normal inspection, supple Cardiovascular/Respiratory Exam: normal breath sounds, regular rate/rhythm Abdominal Exam: non-tender, soft Neurologic Exam: alert, oriented x 3, cooperative, director clinical applications II-XII nml as tested, normal mood/affect, nml cerebellar function, sensation nml, No motor deficits Skin Exam: normal color, warm, dry SpO2 Interpretation: normal SpO2: 96 O2 Delivery: Room Air - Course Nursing assessment & vital signs reviewed: Yes - CT Exams Other CT Interpretation: Tele-radiologist Report (Left periorbital and facial cellulitis. There is a maxillary mucous retention cyst.) Ordered Tests: Active Orders 24 hr Category Date Time Status IV Insertion STAT Care 09/11/19 18:41 Active Pulse Oximetry (ED) STAT Care 09/11/19 18:41 Active ORBITS W/W0 CONTRAST [CT] Stat Exams 09/11/19 19:09 Taken BLOOD CULTURE Stat Lab 09/11/19 18:55 Received CBC W DIFF Stat Lab 09/11/19 18:50 Completed CMP Stat Lab 09/11/19 18:50 Completed Medication Summary Discontinued Medications Generic Name Dose Route Start Last Admin Trade Name Freq PRN Reason Stop Dose Admin Diphtheria/Tetanus/Acell Pertussis 0.5 ml 09/11/19 19:15 09/11/19 19:19 Adacel Vial IM 09/11/19 19:16 0.5 ml .ONCE ONE Administration Diphtheria/Tetanus/Acell Pertussis Confirm 09/11/19 19:18 Adacel Vial Administered 09/11/19 19:19 Dose 0.5 ml IM .STK-MED ONE Sodium Chloride 1,000 mls @ 999 mls/hr 09/11/19 18:41 09/11/19 19:58 Sodium Chloride 0.9% 1000 Ml IV 09/11/19 19:41 Infused .Q1H1M STA Infusion Sodium Chloride Confirm 09/11/19 18:49 Sodium Chloride 0.9% 1000 Ml Administered 09/11/19 18:50 Dose 1,000 mls @ ud .ROUTE .STK-MED ONE Ampicillin Sodium/Sulbactam Sodium 3 gm in 100 mls @ 200 mls/hr 09/11/19 19: 23 09/11/19 19:59 Unasyn 3gm / Nacl 100ml IV 09/11/19 19:52 Infused STAT STA Infusion Ampicillin Sodium/Sulbactam Sodium Confirm 09/11/19 19:30 Unasyn 3gm / Nacl 100ml Administered 09/11/19 19:31 Dose 3 gm in 100 mls @ ud .ROUTE .STK-MED ONE Morphine Sulfate 2 mg 09/11/19 18:41 09/11/19 18:51 Morphine Sulfate 2 Mg Inj IV 09/11/19 18:42 2 mg STAT ONE Administration Morphine Sulfate Confirm 09/11/19 18:49 Morphine Sulfate 2 Mg Inj Administered 09/11/19 18:50 Dose 2 mg .ROUTE .STK-MED ONE Lab/Rad Data: Laboratory Result Diagrams 09/11/19 18:50 09/11/19 18:50 Laboratory Results 09/11/19 09/11/19 Range/Units 18:50 18:50 WBC 5.9 (4.0-10.5) K/mm3 RBC 4.22 (4.1-5.4) M/mm3 Hgb 12.4 (12.0-16.0) gm/dl Hct 37.4 (35-47) % MCV 88.6 (78-100) fl MCH 29.4 (26-32) pg MCHC 33.2 (32-36) g/dl RDW 13.0 (11.5-14.0) % Plt Count 327 (150-450) K/mm3 MPV 9.9 (7.5-11.0) fl Gran % 48.9 (36.0-66.0) % Eos # (Auto) 0.12 (0-0.5) Absolute Lymphs (auto) 2.49 (1.0-4.6) Absolute Monos (auto) 0.40 (0.0-1.3) Lymphocytes % 41.9 (24.0-44.0) % Monocytes % 6.7 (0.0-12.0) % Eosinophils % 2.0 (0.00-5.0) % Basophils % 0.5 (0.0-0.4) % Absolute Granulocytes 2.90 (1.4-6.9) Basophils # 0.03 (0-0.4) Sodium 138 (137-145) mmol/L Potassium 4.2 (3.5-5.1) mmol/L Chloride 103 (98-107) mmol/L Carbon Dioxide 28 (22-30) mmol/L Anion Gap 11.5 (5-15) MEQ/L BUN 12 (7-17) mg/dL Creatinine 1.03 (0.52-1.04) mg/dL Estimated GFR 58.5 ML/MIN Glucose 84 (74-106) mg/dL Calcium 8.8 (8.4-10.2) mg/dL Total Bilirubin 0.30 (0.2-1.3) mg/dL AST 24 (14-36) U/L ALT 9 (0-35) U/L Alkaline Phosphatase 91 (38-126) U/L Serum Total Protein 7.3 (6.3-8.2) g/dL Albumin 4.1 (3.5-5.0) g/dL - Progress Progress: improved Progress Note: 09/11/19 21:15 Patient reassessed. Pain improved. CT shows a left periorbital cellulitis and left facial cellulitis. No acute change in vision. Antibiotics infused. Tetanus updated. Case discussed with Dr. Javed who accepts admission to observation. Plan of care discussed with patient and . They agree to admission to [facility] for further evaluation and treatment. Discussed with : Fredy Will see patient in: hospital (observation) Counseled pt/family regarding: lab results, diagnosis, rad results - Departure Departure Disposition: Observation, Release to OR/SDC Clinical Impression: Periorbital cellulitis of left eye, Mucous retention cyst of maxillary sinus Condition: Stable Critical Care Time: No Referrals: MELE MITCHELL [Primary Care Provider] -
[2019-09-11 19:21] LABS: BASOPHIL % 0.5 % (0.0-0.4); Basophil (Absolute #) 0.03 (0-0.4); Eosinophil (Absolute #) 0.12 (0-0.5); Hematocrit 37.4 % (35-47); Hemoglobin 12.4 gm/dl (12.0-16.0); Lymphocyte (Absolute #) 2.49 (1.0-4.6); Lymphocytes % 41.9 % (24.0-44.0); Mean Cell Volume 88.6 fl (78-100); Mean Corpuscular Hemoglobin 29.4 pg (26-32); Mean Corpuscular Hgb Concent. 33.2 g/dl (32-36); Mean Platelet Volume 9.9 fl (7.5-11.0); Monocytes % 6.7 % (0.0-12.0); Neutrophil % 48.9 % (36.0-66.0); Platelet Count 327 K/mm3 (150-450); Red Blood Count 4.22 M/mm3 (4.1-5.4); White Blood Count 5.9 K/mm3 (4.0-10.5)
[2019-09-11] MEDS ORDERED: Unasyn 3GM / NaCl 100ML 3 GM/100 ML IVPB IV STA (19:23)
[2019-09-11] MEDS ORDERED: Unasyn 3GM / NaCl 100ML 3 GM/100 ML IVPB ONE (19:30)
[2019-09-11 19:38] LABS: ALBUMIN 4.1 g/dL (3.5-5.0); ANION GAP 11.5 MEQ/L (5-15); BILIRUBIN,TOTAL 0.3 mg/dL (0.2-1.3); Calcium 8.8 mg/dL (8.4-10.2); Creatinine 1 1.03 mg/dL (0.52-1.04); Potassium 4.2 mmol/L (3.5-5.1); Total Protein 7.3 g/dL (6.3-8.2)
[2019-09-11] MEDS ORDERED: MORPHINE SULFATE 2 MG INJ IV PRN (22:52)
[2019-09-11] MEDS ORDERED: Zofran 4 MG/2 ML VIAL IV PRN (22:52)
[2019-09-11] MEDS ORDERED: DUONEB 0.5-3 MG/3 ml Neb IH PRN (23:46)
[2019-09-12] MEDS ORDERED: Unasyn 3 GM Vial ONE (00:55)
[2019-09-12] MEDS ORDERED: Sodium Chloride 100ML MINI-BAG PLUS 100 ML IV ONE (00:57)
[2019-09-12] MEDS: Unasyn 3GM / NaCl 100ML 3 GM/100 ML IVPB IV SCH ×5 (01:03→23:58)
[2019-09-12 04:58] LABS: Absolute Neutrophil Ct (ANC) 4.17 (1.4-6.9); BASOPHIL % 0.7 % (0.0-0.4); Basophil (Absolute #) 0.05 (0-0.4); Eosinophil % 1.6 % (0.00-5.0); Eosinophil (Absolute #) 0.12 (0-0.5); Hematocrit 37.7 % (35-47); Hemoglobin 12.2 gm/dl (12.0-16.0); Lymphocyte (Absolute #) 2.54 (1.0-4.6); Lymphocytes % 34.4 % (24.0-44.0); Mean Cell Volume 90.4 fl (78-100); Mean Corpuscular Hemoglobin 29.3 pg (26-32); Mean Corpuscular Hgb Concent. 32.4 g/dl (32-36); Mean Platelet Volume 9.6 fl (7.5-11.0); Monocyte (Absolute #) 0.51 (0.0-1.3); Monocytes % 6.9 % (0.0-12.0); Neutrophil % 56.4 % (36.0-66.0); Platelet Count 290 K/mm3 (150-450); Red Blood Count 4.17 M/mm3 (4.1-5.4); Red Cell Distribution Width 13.4 % (11.5-14.0); White Blood Count 7.4 K/mm3 (4.0-10.5)
[2019-09-12 05:22] LABS: ALBUMIN 3.5 g/dL (3.5-5.0); ALKALINE PHOSPHATASE 75 U/L (38-126); ANION GAP 10.3 MEQ/L (5-15); BLOOD UREA NITROGEN 13 mg/dL (7-17); CHLORIDE 108 mmol/L (98-107); Calcium 8.4 mg/dL (8.4-10.2); Carbon Dioxide 22 mmol/L (22-30); Creatinine 1 0.92 mg/dL (0.52-1.04); Glucose 89 mg/dL (74-106); Potassium 4.5 mmol/L (3.5-5.1); SGOT/AST 25 U/L (14-36); SGPT/ALT 7 U/L (0-35); SODIUM 136 mmol/L (137-145); Total Protein 6.5 g/dL (6.3-8.2)
--- NOTE | 2019-09-12 07:57 | PCM.HP ---
History of Present Illness - Chief Complaint Chief Complaint: Orbital cellulitis History of Present Illness: is a 58 year old female who came to the ER yesterday, she has had worsening swelling and left eye pain/discharge for the last 2 weeks. she was seen early in the course and treated for conjunctivitis with drops but has worsened. has swelling around the eye which makes it difficult to see but has no problems with her visual acuity. no known fever but swelling around the eye is warm to touch. no cough, no shortness of breath, no chest pain, no GI symptoms. - Review of Systems Constitutional: No Fever, No Chills Eyes: Discharge, Eye Pain, Eye Redness Respiratory: No Cough, No Short Of Breath Cardiac: No Chest Pain, No Edema, No Syncope Abdominal/Gastrointestinal: No Abdominal Pain, No Nausea, No Vomiting, No Diarrhea Skin: No Rash Neurological: No Dizziness, No Focal Weakness, No Sensory Changes All Other Systems: Reviewed and Negative Medications & Allergies Home Medications: Home Medication List Fluticasone Propionate [Flonase NASAL] 16 gm NS DAILY 02/20/17 [History Confirmed 09/11/19] Albuterol Sulfate [Ventolin Hfa] 18 gm IH Q4HPRN PRN 03/08/18 [History Confirmed 09/11/19] Aspirin [Aspirin EC] 81 mg PO DAILY 11/26/18 [History Confirmed 09/11/19] Famotidine 20 mg [Pepcid 20 MG] 20 mg PO BID 11/26/18 [History Confirmed 09/11/19] Atorvastatin Calcium [Lipitor 20MG Tablet] 20 mg PO DAILY 09/11/19 [History Confirmed 09/11/19] Losartan Potassium 1 ea DAILY 09/11/19 [History Confirmed 09/11/19] Moxifloxacin HCl [Moxifloxacin] 1 drop QID 09/11/19 [History Confirmed 09/11/19] Pregabalin 50 mg PO DAILY 09/11/19 [History Confirmed 09/11/19] Ropinirole 2Mg [Requip 2Mg Tab] 2 mg PO DAILY 09/11/19 [History Confirmed 09/11/19] Tramadol HCl 50 mg [Ultram 50 mg] 1 ea PO Q6H PRN PRN 09/11/19 [History Confirmed 09/11/19] Umeclidinium Brm/Vilanterol Tr [Anoro Ellipta 62.5-25 Mcg INH] 1 puff IH DAILY 09/11/19 [History Confirmed 09/11/19] Allergies/Adverse Reactions: Allergies Allergy/AdvReac Type Severity Reaction Status Date / Time coconut Allergy Verified 09/11/19 18:27 - Past Medical History Past Medical History: Yes Neurological History: TIA ENT History: No Pertinent History Cardiac History: Hypertension Respiratory History: COPD, Emphysema Endocrine Medical History: Adrenal Insufficiency Musculoskelatal History: Osteoarthritis, Osteoporosis GI Medical History: GERD, Hemorrhoids History: No Pertinent History Pyscho-Social History: No Pertinent History Reproductive Disorders: Other Comment: TIA "a few years ago" she had R sided numbness. cysts on ovaries - Female History Hx Last Menstrual Period: psot Are you now?: No - Past Surgical History Past Surgical History: Yes Neuro Surgical History: No Pertinent History Cardiac History: No Pertinent History Respiratory Surgery: No Pertinent History GI Surgical History: No Pertinent History Genitourinary Surgical Hx: No Pertinent History Musculskeletal Surgical Hx: Orthopedic Surgery Female Surgical History: Other Other Surgical History: rt arm,ovarian cyst removed, back "defuse" L4-5 and compression fracture repair - Social History Smoking Status: Current every day smoker How long have you smoked: 30 years Exposure to second hand smoke: Yes Alcohol: None Drug Use: none - Physical Exam Vital Signs: Vital Signs - 24 hr Temp Pulse Resp BP Pulse Ox 09/12/19 07:11 66 16 97 09/12/19 04:00 97.8 F 65 16 112/62 97 09/11/19 23:20 97.7 F 79 19 146/65 97 09/11/19 23:12 99 09/11/19 22:58 93 H 18 99 09/11/19 21:18 96 09/11/19 21:10 76 18 133/69 97 09/11/19 20:40 83 140/76 98 09/11/19 19:19 66 16 150/73 99 09/11/19 18:56 96 09/11/19 18:20 98.1 F 84 18 148/73 99 General Appearance: no apparent distress, alert Neurologic Exam: alert, oriented x 3, cooperative, normal mood/affect, nml cerebellar function, nml station & gait, sensation nml, No motor deficits Eye Exam: other (periorbital swelling left eye, redness and clear drainage) Respiratory Exam: normal breath sounds, lungs clear, No respiratory distress Cardiovascular Exam: regular rate/rhythm, normal heart sounds, normal peripheral pulses Gastrointestinal/Abdomen Exam: soft, normal bowel sounds, No tenderness, No mass Skin Exam: normal color, warm, dry, No rash Wound Assessment: Skin/Wound Assessment Wound/Incision Assessment Start: 09/11/19 22: 55 Text: Status: Active Freq: Q6H Protocol: Document 09/12/19 02:00 KENDRA (Rec: 09/12/19 04:12 KENDRA [id number]) Wound Photo Photo Taken No Comment: no open wound Results - Labs Lab/Micro Results: Lab Results-Last 24 Hours 09/11/19 09/11/19 09/12/19 Range/Units 18:50 18:50 04:45 WBC 5.9 7.4 (4.0-10.5) K/mm3 RBC 4.22 4.17 (4.1-5.4) M/mm3 Hgb 12.4 12.2 (12.0-16.0) gm/dl Hct 37.4 37.7 (35-47) % MCV 88.6 90.4 (78-100) fl MCH 29.4 29.3 (26-32) pg MCHC 33.2 32.4 (32-36) g/dl RDW 13.0 13.4 (11.5-14.0) % Plt Count 327 290 (150-450) K/mm3 MPV 9.9 9.6 (7.5-11.0) fl Gran % 48.9 56.4 (36.0-66.0) % Eos # (Auto) 0.12 0.12 (0-0.5) Absolute Lymphs (auto) 2.49 2.54 (1.0-4.6) Absolute Monos (auto) 0.40 0.51 (0.0-1.3) Lymphocytes % 41.9 34.4 (24.0-44.0) % Monocytes % 6.7 6.9 (0.0-12.0) % Eosinophils % 2.0 1.6 (0.00-5.0) % Basophils % 0.5 0.7 (0.0-0.4) % Absolute Granulocytes 2.90 4.17 (1.4-6.9) Basophils # 0.03 0.05 (0-0.4) Sodium 138 (137-145) mmol/L Potassium 4.2 (3.5-5.1) mmol/L Chloride 103 (98-107) mmol/L Carbon Dioxide 28 (22-30) mmol/L Anion Gap 11.5 (5-15) MEQ/L BUN 12 (7-17) mg/dL Creatinine 1.03 (0.52-1.04) mg/dL Estimated GFR 58.5 ML/MIN Glucose 84 (74-106) mg/dL Calcium 8.8 (8.4-10.2) mg/dL Total Bilirubin 0.30 (0.2-1.3) mg/dL AST 24 (14-36) U/L ALT 9 (0-35) U/L Alkaline Phosphatase 91 (38-126) U/L Serum Total Protein 7.3 (6.3-8.2) g/dL Albumin 4.1 (3.5-5.0) g/dL /11/23 Range/Units 04:45 WBC (4.0-10.5) K/mm3 RBC (4.1-5.4) M/mm3 Hgb (12.0-16.0) gm/dl Hct (35-47) % MCV (78-100) fl MCH (26-32) pg MCHC (32-36) g/dl RDW (11.5-14.0) % Plt Count (150-450) K/mm3 MPV (7.5-11.0) fl Gran % (36.0-66.0) % Eos # (Auto) (0-0.5) Absolute Lymphs (auto) (1.0-4.6) Absolute Monos (auto) (0.0-1.3) Lymphocytes % (24.0-44.0) % Monocytes % (0.0-12.0) % Eosinophils % (0.00-5.0) % Basophils % (0.0-0.4) % Absolute Granulocytes (1.4-6.9) Basophils # (0-0.4) Sodium 136 L (137-145) mmol/L Potassium 4.5 (3.5-5.1) mmol/L Chloride 108 H (98-107) mmol/L Carbon Dioxide 22 (22-30) mmol/L Anion Gap 10.3 (5-15) MEQ/L BUN 13 (7-17) mg/dL Creatinine 0.92 (0.52-1.04) mg/dL Estimated GFR > 60.0 ML/MIN Glucose 89 (74-106) mg/dL Calcium 8.4 (8.4-10.2) mg/dL Total Bilirubin 0.50 (0.2-1.3) mg/dL AST 25 (14-36) U/L ALT 7 (0-35) U/L Alkaline Phosphatase 75 (38-126) U/L Serum Total Protein 6.5 (6.3-8.2) g/dL Albumin 3.5 (3.5-5.0) g/dL - Radiology Impressions Radiology Exams & Impressions: Radiology Procedures Category Date Time Status ORBITS W/W0 CONTRAST [CT] Stat Exams 09/11/19 19:09 Taken - Other Procedures and Tests Respiratory Therapy 09/11/19 22:58 Respiratory Therapy Assessment DAILY Assessment/Plan (1) Periorbital cellulitis of left eye Current Visit: Yes Status: Acute Assessment & Plan: continue unasyn at this time Code(s): L03.213 - PERIORBITAL CELLULITIS (2) COPD (chronic obstructive pulmonary disease) Current Visit: Yes Status: Acute (3) Essential hypertension Current Visit: Yes Status: Acute Code(s): I10 - ESSENTIAL (PRIMARY) HYPERTENSION
--- NOTE | 2019-09-12 09:10 | XRAY ---
Indication: Left periorbital edema, pain, and erythema. Recent diagnosis conjunctivitis. Multiple contiguous axial images obtained through the orbits prior to and following 60 cc Isovue 370 contrast as ordered. Sagittal and coronal reformatted images obtained. Comparison: None Mild left facial and left periorbital soft tissue swelling/enhancement favoring cellulitis. No suspicious fluid/air collection. Orbits and retro-orbital spaces are unremarkable. No acute fracture, suspicious bony lesions, or osseous destructive process. Inferior medial right maxillary sinus demonstrates 7 mm polyp/retention cyst. Inferior medial left maxillary sinus demonstrates tiny focus mucosal thickening. Remaining paranasal sinuses and nasal passages are clear. Moderate nasal septal deviation to the left. A few bilateral dental amalgams produces beam artifact. Remaining soft tissues including base of the brain are unremarkable. Impression: 1. Left facial/periorbital cellulitis. 2. Minimal bilateral maxillary sinus disease. 3. Remaining CT orbits with and without contrast exam negative. Comment: Preliminary interpretation was made by DC. No critical discrepancy.
[2019-09-12] MEDS ORDERED: Ventolin Hfa MDI IH PRN (13:56)
[2019-09-12] MEDS ORDERED: ULTRAM 50 MG PO PRN (13:56)
[2019-09-12] MEDS ORDERED: Cozaar 50 MG PO SCH (14:00)
[2019-09-12] MEDS ORDERED: Lyrica 50MG PO SCH (14:00)
[2019-09-12] MEDS ORDERED: ZOCOR 20MG PO SCH (14:00)
[2019-09-12] MEDS ORDERED: ECOTRIN 81 MG PO SCH (14:00)
[2019-09-12] MEDS ORDERED: REQUIP 2MG TAB PO SCH (14:00)
[2019-09-12] MEDS ORDERED: Flonase NASAL NS SCH (14:00)
[2019-09-12] MEDS ORDERED: VENTOLIN COMMON CANISTER IH PRN (14:07)
[2019-09-12] MEDS ORDERED: MEDICATION INTERVENTION MC SCH (14:15)
[2019-09-12] MEDS: Pepcid 20 MG PO SCH ×2 (14:31→21:28)
[2019-09-13 05:25] LABS: Absolute Neutrophil Ct (ANC) 2.97 (1.4-6.9); BASOPHIL % 0.5 % (0.0-0.4); Basophil (Absolute #) 0.03 (0-0.4); Eosinophil % 2.4 % (0.00-5.0); Eosinophil (Absolute #) 0.14 (0-0.5); Hematocrit 36.3 % (35-47); Hemoglobin 11.7 gm/dl (12.0-16.0); Lymphocyte (Absolute #) 2.24 (1.0-4.6); Lymphocytes % 38.6 % (24.0-44.0); Mean Cell Volume 90.3 fl (78-100); Mean Corpuscular Hemoglobin 29.1 pg (26-32); Mean Corpuscular Hgb Concent. 32.2 g/dl (32-36); Mean Platelet Volume 9.8 fl (7.5-11.0); Monocyte (Absolute #) 0.42 (0.0-1.3); Monocytes % 7.2 % (0.0-12.0); Neutrophil % 51.3 % (36.0-66.0); Platelet Count 273 K/mm3 (150-450); Red Blood Count 4.02 M/mm3 (4.1-5.4); Red Cell Distribution Width 13.1 % (11.5-14.0); White Blood Count 5.8 K/mm3 (4.0-10.5)
[2019-09-13 05:57] LABS: ANION GAP 9.7 MEQ/L (5-15); Calcium 8.9 mg/dL (8.4-10.2); Creatinine 1 1.03 mg/dL (0.52-1.04); Potassium 4.5 mmol/L (3.5-5.1)
[2019-09-13] MEDS: Unasyn 3GM / NaCl 100ML 3 GM/100 ML IVPB IV SCH (06:00)
[2019-09-13 08:16] VITALS: BP 117/65
[2019-09-13 08:39] VITALS: PULSE 75; O2SAT 97
--- NOTE | 2019-09-13 09:51 | PCM.DS ---
Discharge Summary Date of Admission: 09/11/19 22:49 Admitting Physician: GRISEL BLACKMAN Primary Care Provider: MELE MITCHELL Allergies Allergies coconut Allergy (Verified 09/11/19 18:27) Hospital Summary - Hospital Course Hospital Course: patient was admitted with periorbital cellulitis, improved on unasyn. afebrile and wbc normal - Vitals & Intake/Output Vital Signs: Vital Signs Temperature 97.8 F 09/13/19 08:00 Pulse Rate 75 09/13/19 08:35 Respiratory Rate 16 09/13/19 08:35 Blood Pressure 117/65 09/13/19 08:00 O2 Sat by Pulse Oximetry 97 09/13/19 08:35 Intake & Output: Intake & Output 09/10/19 09/11/19 09/12/19 09/13/19 11:59 11:59 11:59 11:59 Intake Total 1110 1877 Balance 1110 1877 Weight 65.4 kg - Lab Result Diagrams: 09/13/19 04:50 09/13/19 04:50 Lab Results-Last 24 Hrs: Lab Results-Last 24 Hours 09/13/19 09/13/19 Range/Units 04:50 04:50 WBC 5.8 (4.0-10.5) K/mm3 RBC 4.02 L (4.1-5.4) M/mm3 Hgb 11.7 L (12.0-16.0) gm/dl Hct 36.3 (35-47) % MCV 90.3 (78-100) fl MCH 29.1 (26-32) pg MCHC 32.2 (32-36) g/dl RDW 13.1 (11.5-14.0) % Plt Count 273 (150-450) K/mm3 MPV 9.8 (7.5-11.0) fl Gran % 51.3 (36.0-66.0) % Eos # (Auto) 0.14 (0-0.5) Absolute Lymphs (auto) 2.24 (1.0-4.6) Absolute Monos (auto) 0.42 (0.0-1.3) Lymphocytes % 38.6 (24.0-44.0) % Monocytes % 7.2 (0.0-12.0) % Eosinophils % 2.4 (0.00-5.0) % Basophils % 0.5 (0.0-0.4) % Absolute Granulocytes 2.97 (1.4-6.9) Basophils # 0.03 (0-0.4) Sodium 141 (137-145) mmol/L Potassium 4.5 (3.5-5.1) mmol/L Chloride 108 H (98-107) mmol/L Carbon Dioxide 28 (22-30) mmol/L Anion Gap 9.7 (5-15) MEQ/L BUN 16 (7-17) mg/dL Creatinine 1.03 (0.52-1.04) mg/dL Estimated GFR 58.5 ML/MIN Glucose 96 (74-106) mg/dL Calcium 8.9 (8.4-10.2) mg/dL Micro Results-Entire Visit: Microbiology 09/11/19 18:55 Blood Culture - Preliminary Blood NO GROWTH TO DATE 09/11/19 18:50 Blood Culture - Preliminary Blood NO GROWTH TO DATE - Radiology Exams Ordered Rad Exams-Entire Visit: Radiology Procedures Category Date Time Status ORBITS W/W0 CONTRAST [CT] Stat Exams 09/11/19 19:09 Completed - Procedures and Test Procedures and Tests throughout Hospitalization: Therapy Orders & Screens 09/11/19 22:58 Respiratory Therapy Assessment DAILY Comment: Diagnosis: Orbital cellulitis 09/11/19 23:28 Smoking Cessation Education ONCE Comment: Diagnosis: Orbital cellulitis Smoking Status: Current every day smoker How long have you smoked: 30 years Have you smoked in the past 12 months: Yes Approximately how many cigarettes per day: 20 Do you dip or chew tobacco: No Discharge Exam General Appearance: no apparent distress, alert Eye Exam: other (mild redness left periorbital region, no proptosis) Neck Exam: normal inspection, non-tender, supple, full range of motion Respiratory Exam: normal breath sounds Cardiovascular Exam: regular rate/rhythm, normal heart sounds Gastrointestinal/Abdomen Exam: soft, No tenderness, No mass Extremity Exam: normal inspection, normal range of motion Skin Exam: normal color, warm, dry Final Diagnosis/Problem List - Final Discharge Diagnosis/Problem (1) Periorbital cellulitis of left eye Current Visit: Yes Status: Acute Code(s): L03.213 - PERIORBITAL CELLULITIS (2) COPD (chronic obstructive pulmonary disease) Current Visit: Yes Status: Acute (3) Essential hypertension Current Visit: Yes Status: Acute Code(s): I10 - ESSENTIAL (PRIMARY) HYPERTENSION - Discharge Disposition: Home, Self-Care Condition: Stable Prescriptions: New Amoxicillin/Potassium Clav [Augmentin 875-125 Tablet] 1 each PO BID #20 tablet Continue Fluticasone Propionate [Flonase NASAL] 16 gm NS DAILY Albuterol Sulfate [Ventolin Hfa] 18 gm IH Q4HPRN PRN PRN Reason: Shortness Of Breath/Wheezing Famotidine 20 mg [Pepcid 20 MG] 20 mg PO BID Aspirin [Aspirin EC] 81 mg PO DAILY Tramadol HCl 50 mg [Ultram 50 mg] 1 ea PO Q6H PRN PRN PRN Reason: Pain Moxifloxacin HCl [Moxifloxacin] 1 drop QID Losartan Potassium 1 ea DAILY Umeclidinium Brm/Vilanterol Tr [Anoro Ellipta 62.5-25 Mcg INH] 1 puff IH DAILY Pregabalin 50 mg PO DAILY Ropinirole 2Mg [Requip 2Mg Tab] 2 mg PO DAILY Atorvastatin Calcium [Lipitor 20MG Tablet] 20 mg PO DAILY Follow up with: MELE MITCHELL [Primary Care Provider] - 1 Week
[2019-09-13] MEDS ORDERED: LOSARTAN POTASSIUM PO SCH (10:00)
[2019-09-13] MEDS ORDERED: NON-FORMULARY ITEM (Umeclidinium Brm/Vilanterol Tr [Anoro Ellipta 62.5-25 Mcg Inh] 1 PUFF) IH SCH (10:00)
== END 2019-09-13 10:25 | disposition home or self-care (01) ==
LOC: ED 18:16 → MED SURG 22:49
PROVIDERS: ADMIT Internal Medicine; ATTEND Internal Medicine
DX: L03.213 Periorbital cellulitis (principal); J44.9 Chronic obstructive pulmonary disease, unspecified; I10 Essential (primary) hypertension; Z79.899 Other long term (current) drug therapy; Z86.73 Personal history of transient ischemic attack (TIA), and cerebral infarction without residual deficits
CPT/HCPCS: 36000; 36415; 70482; 80048; 80053; 85025; 87040; 90471; 94760; 96360; 96365; 96374; 99284; G0378; 90715; J0295; J2270; A9270-GY

== ENCOUNTER 2023-01-06 18:08 | Observation (INO) | payer MEDICARE ==
--- NOTE | 2023-01-06 18:11 | ERPHSYRPT ---
- History of Present Illness Time Seen by Provider: 01/06/23 18:11 Historian: patient Exam Limitations: no limitations Physician History: This is a 62-year-old white female patient who presents with epigastric abdominal pain for 3 days. There is been no nausea vomiting or diarrhea. She denies fever. She denies shortness of breath. Patient states she has been eating and drinking well. Patient had breakfast this morning. Patient's recently . Patient has a history of TIAs, COPD, hyperlipidemia, hypertension, gastroesophageal reflux disease, adrenal insufficiencies. She is a daily smoker of cigarettes. She states she does not have chest pain. The pain is in the epigastric area. She states she primarily eats fatty greasy spicy foods. The pain is sharp and radiates straight into her back. Timing/Duration: day(s) (3) Quality: sharpness, stabbing Abdominal Pain Onset Location: epigastric Pain Radiation: back Severity of Pain-Max: moderate Severity of Pain-Current: moderate Modifying Factors: Improves With: nothing Associated Symptoms: No chest pain, No diarrhea, No loss of appetite, No nausea, No shortness of breath, No vomiting Previous symptoms: no prior history Allergies/Adverse Reactions: coconut Allergy (Verified 01/06/23 18:18) Home Medications: Fluticasone Propionate [Flonase NASAL] 16 gm NS DAILY 02/20/17 [History] Albuterol Sulfate [Ventolin Hfa] 18 gm IH Q4HPRN PRN 03/08/18 [History] Aspirin [Aspirin EC] 81 mg PO DAILY 11/26/18 [History] Famotidine 20 mg [Pepcid 20 MG] 20 mg PO BID 11/26/18 [History] Atorvastatin Calcium [Lipitor 20MG Tablet] 20 mg PO DAILY 09/11/19 [History] Umeclidinium Brm/Vilanterol Tr [Anoro Ellipta 62.5-25 Mcg INH] 1 puff IH DAILY 09/11/19 [History] Isosorbide Mononitrate [Isosorbide Mononitrate ER] 60 mg PO DAILY 01/06/23 [History] Meloxicam 15 mg [Meloxicam 15 MG] 1 ea DAILY 01/06/23 [History] Hx Tetanus, Diphtheria Vaccination/Date Given: No Hx Influenza Vaccination/Date Given: Yes Hx Pneumococcal Vaccination/Date Given: No Travel Risk - International Travel Have you traveled outside of the country in past 3 weeks: No - Coronavirus Screening Are you exhibiting any of the following symptoms?: No Close contact with a COVID-19 positive Pt in past 14-21 Days: No - Review of Systems Constitutional: No Symptoms Eyes: No Symptoms Ears, Nose, & Throat: No Symptoms Respiratory: No Symptoms Cardiac: No Symptoms Abdominal/Gastrointestinal: Abdominal Pain, No Nausea, No Vomiting (Gastric), No Diarrhea, No Appetite Changes Genitourinary Symptoms: No Symptoms Musculoskeletal: No Symptoms Skin: No Symptoms Neurological: No Symptoms Psychological: No Symptoms Endocrine: No Symptoms Hematologic/Lymphatic: No Symptoms Immunological/Allergic: No Symptoms All Other Systems: Reviewed and Negative - Past Medical History Pertinent Past Medical History: Yes Neurological History: TIA ENT History: No Pertinent History Cardiac History: Hypertension Respiratory History: COPD, Emphysema Endocrine Medical History: Adrenal Insufficiency Musculoskeletal History: Osteoarthritis, Osteoporosis GI Medical History: Hemorrhoids, GERD History: No Pertinent History Psycho-Social History: No Pertinent History Female Reproductive Disorders: Other Other Medical History: TIA "a few years ago" she had R sided numbness. cysts on ovaries - Past Surgical History Past Surgical History: Yes Neuro Surgical History: No Pertinent History Cardiac: No Pertinent History Respiratory: No Pertinent History Gastrointestinal: No Pertinent History Genitourinary: No Pertinent History Musculoskeletal: Orthopedic Surgery Female Surgical History: Other Other Surgical History: rt arm,ovarian cyst removed, back "defuse" L4-5 and compression fracture repair - Social History Smoking Status: Current every day smoker How long have you smoked: 30 years Exposure to second hand smoke: Yes Drug Use: none Patient Lives Alone: No - Nursing Vital Signs Nursing Vital Signs: Initial Vital Signs Temperature 97.0 F 01/06/23 18:28 Pulse Rate 85 01/06/23 18:28 Respiratory Rate 18 01/06/23 18:28 Blood Pressure 154/81 01/06/23 18:28 O2 Sat by Pulse Oximetry 97 01/06/23 18:28 Pain Scale Pain Intensity 10 - Physical Exam General Appearance: mild distress, alert, anxiety Ears, Nose, Throat Exam: normal ENT inspection, moist mucous membranes Neck Exam: normal inspection, non-tender, supple, full range of motion Respiratory Exam: normal breath sounds, lungs clear, airway intact, No chest tenderness, No respiratory distress Cardiovascular Exam: regular rate/rhythm, normal heart sounds, normal peripheral pulses Gastrointestinal/Abdomen Exam: soft, normal bowel sounds, tenderness (Epigastric area with palpation), guarding (Gastrium to palpation), No rebound Pelvic Exam: not done Rectal Exam: not done Back Exam: normal inspection, normal range of motion, No CVA tenderness, No vertebral tenderness Extremity Exam: normal inspection, normal range of motion, pelvis stable Neurologic Exam: alert, oriented x 3, cooperative, 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, normal mood/affect, nml cerebellar function, nml station & gait, sensation nml Skin Exam: normal color, warm, dry Lymphatic Exam: No adenopathy SpO2 Interpretation: normal O2 Delivery: Room Air - Course Nursing assessment & vital signs reviewed: Yes EKG Interpreted by Me: RATE (82), Sinus Rhythm, NORMAL AXIS, NORMAL INTERVALS, NORMAL QRS, NORMAL ST-T, Other (No evidence of acute ischemic changes) Ordered Tests: Active Orders 24 hr Category Date Time Status EKG-ER Only STAT Care 01/06/23 18:36 Active IV Insertion STAT Care 01/06/23 18:34 Active ABDOMEN AND PELVIS W/0 CONTRAS [CT] Stat Exams 01/06/23 18:35 Taken AMYLASE Stat Lab 01/06/23 18:50 Completed CBC W DIFF Stat Lab 01/06/23 18:50 Completed CMP Stat Lab 01/06/23 18:50 Completed CULTURE,URINE Stat Lab 01/06/23 18:36 Received LIPASE Stat Lab 01/06/23 18:50 Completed TROPONIN Q4H Lab 01/06/23 18:50 Completed TROPONIN Q4H Lab 01/06/23 22:45 Ordered TROPONIN Q4H Lab 01/07/23 02:45 Ordered UA W/RFX UR CULTURE Stat Lab 01/06/23 18:36 Completed Transfer Order Routine Transfer 01/06/23 Ordered Medication Summary Discontinued Medications Generic Name Dose Route Start Last Admin Trade Name Freq PRN Reason Stop Dose Admin Hydromorphone HCl 1 mg 01/06/23 19:51 01/06/23 19:53 Hydromorphone 1 Mg/1ml Inj IV 01/06/23 19:52 1 mg STAT ONE Administration Hydromorphone HCl Confirm 01/06/23 19:53 Hydromorphone 1 Mg/1ml Inj Administered 10/03/23 19:54 Dose 1 mg .ROUTE .STK-MED ONE Sodium Chloride 1,000 mls @ 999 mls/hr 01/06/23 18:34 01/06/23 19:40 Sodium Chloride 0.9% 1000 Ml IV 01/06/23 19:34 Infused .Q1H1M STA Infusion Sodium Chloride Confirm 01/06/23 18:38 Sodium Chloride 0.9% 1000 Ml Administered 01/06/23 18:39 Dose 1,000 mls @ ud .ROUTE .STK-MED ONE Ceftriaxone Sodium/Dextrose 1 g in 50 mls @ 100 mls/hr 01/06/23 19:23 01/06/23 19:48 Rocephin 1 Gm-D5w 50 Ml Bag IV 01/06/23 19:52 100 ml/hr STAT STA 100 mls/hr Administration Ceftriaxone Sodium/Dextrose Confirm 01/06/23 19:46 Rocephin 1 Gm-D5w 50 Ml Bag Administered 01/06/23 19:47 Dose 1 g in 50 mls @ ud IV .STK-MED ONE Morphine Sulfate 4 mg 01/06/23 18:34 01/06/23 18:39 Morphine Sulfate 4 Mg/Ml Injection IV 01/06/23 18:35 4 mg STAT ONE Administration Morphine Sulfate Confirm 01/06/23 18:38 Morphine Sulfate 4 Mg/Ml Injection Administered 01/06/23 18:39 Dose 4 mg .ROUTE .STK-MED ONE Ondansetron HCl 4 mg 01/06/23 18:34 01/06/23 18:39 Ondansetron Hcl 4 Mg/2 Ml Vial IV 01/06/23 18:35 4 mg STAT ONE Administration Ondansetron HCl Confirm 01/06/23 18:37 Ondansetron Hcl 4 Mg/2 Ml Vial Administered 01/06/23 18:38 Dose 4 mg .ROUTE .STK-MED ONE Pantoprazole Sodium 40 mg 01/06/23 18:34 01/06/23 18:39 Pantoprazole 40 Mg Vial IV 01/06/23 18:35 40 mg STAT ONE Administration Pantoprazole Sodium Confirm 01/06/23 18:38 Pantoprazole 40 Mg Vial Administered 01/06/23 18:39 Dose 40 mg IV .STK-MED ONE Lab/Rad Data: Laboratory Result Diagrams 01/06/23 18:50 01/06/23 18:50 Laboratory Results 01/06/23 01/06/23 01/06/23 Range/Units 18:50 18:50 18:50 WBC 8.2 (4.0-10.5) x10^3/uL RBC 4.71 (4.1-5.4) x10^6/uL Hgb 13.4 (12.0-16.0) g/dL Hct 41.1 (35-47) % MCV 87.3 (78-100) fL MCH 28.5 (26-32) pg MCHC 32.6 (32-36) g/dL RDW 13.2 (11.5-14.0) % Plt Count 399 (150-450) x10^3/uL MPV 8.9 (7.5-11.0) fL Gran % 56.0 (36.0-66.0) % Immature Gran % (Auto) 0.4 (0.00-0.4) % Nucleat RBC Rel Count 0.0 (0.00-0.1) % Eos # (Auto) 0.14 (0-0.5) x10^3/uL Immature Gran # (Auto) 0.03 (0.00-0.03) x10^3u/L Absolute Lymphs (auto) 2.97 (1.0-4.6) x10^3/uL Absolute Monos (auto) 0.43 (0.0-1.3) x10^3/uL Absolute Nucleated RBC 0.00 (0.00-0.01) x10^3u/L Lymphocytes % 36.2 (24.0-44.0) % Monocytes % 5.2 (0.0-12.0) % Eosinophils % 1.7 (0.00-5.0) % Basophils % 0.5 (0.0-0.4) % Absolute Granulocytes 4.59 (1.4-6.9) x10^3/uL Basophils # 0.04 (0-0.4) x10^3/uL Sodium 142 (137-145) mmol/L Potassium 4.9 (3.5-5.1) mmol/L Chloride 102 (98-107) mmol/L Carbon Dioxide 28 (22-30) mmol/L Anion Gap 15.9 H (5-15) MEQ/L BUN 15 (7-17) mg/dL Creatinine 1.01 (0.52-1.04) mg/dL Estimated GFR 59.0 ML/MIN Glucose 94 (74-106) mg/dL Calcium 9.3 (8.4-10.2) mg/dL Total Bilirubin 0.20 (0.2-1.3) mg/dL AST 20 (14-36) U/L ALT 12 (0-35) U/L Alkaline Phosphatase 97 (38-126) U/L Troponin I < 0.012 (0.000-0.034) ng/mL Serum Total Protein 6.9 (6.3-8.2) g/dL Albumin 4.0 (3.5-5.0) g/dL Amylase 142 H (30-110) U/L Lipase 1000 H (23-300) U/L Urine Color (Yellow) Urine Appearance (Clear) Urine pH (4.6-8.0) Ur Specific [place] (1.005-1.030) Urine Protein (Negative) Urine Glucose (UA) (Negative) mg/dL Urine Ketones (Negative) Urine Blood (Negative) Urine Nitrite (Negative) Urine Bilirubin (Negative) Urine Urobilinogen (0.2) mg/dL Ur Leukocyte Esterase (Negative) U Hyaline Cast (Auto) (0-2) /LPF Urine Microscopic RBC (0-5) /HPF Urine Microscopic WBC (0-5) /HPF Ur Epithelial Cells (None Seen) /HPF Urine Bacteria (None Seen) /HPF Urine Culture Reflexed (NO) 01/06/23 Range/Units 18:36 WBC (4.0-10.5) x10^3/uL RBC (4.1-5.4) x10^6/uL Hgb (12.0-16.0) g/dL Hct (35-47) % MCV (78-100) fL MCH (26-32) pg MCHC (32-36) g/dL RDW (11.5-14.0) % Plt Count (150-450) x10^3/uL MPV (7.5-11.0) fL Gran % (36.0-66.0) % Immature Gran % (Auto) (0.00-0.4) % Nucleat RBC Rel Count (0.00-0.1) % Eos # (Auto) (0-0.5) x10^3/uL Immature Gran # (Auto) (0.00-0.03) x10^3u/L Absolute Lymphs (auto) (1.0-4.6) x10^3/uL Absolute Monos (auto) (0.0-1.3) x10^3/uL Absolute Nucleated RBC (0.00-0.01) x10^3u/L Lymphocytes % (24.0-44.0) % Monocytes % (0.0-12.0) % Eosinophils % (0.00-5.0) % Basophils % (0.0-0.4) % Absolute Granulocytes (1.4-6.9) x10^3/uL Basophils # (0-0.4) x10^3/uL Sodium (137-145) mmol/L Potassium (3.5-5.1) mmol/L Chloride (98-107) mmol/L Carbon Dioxide (22-30) mmol/L Anion Gap (5-15) MEQ/L BUN (7-17) mg/dL Creatinine (0.52-1.04) mg/dL Estimated GFR ML/MIN Glucose (74-106) mg/dL Calcium (8.4-10.2) mg/dL Total Bilirubin (0.2-1.3) mg/dL AST (14-36) U/L ALT (0-35) U/L Alkaline Phosphatase (38-126) U/L Troponin I (0.000-0.034) ng/mL Serum Total Protein (6.3-8.2) g/dL Albumin (3.5-5.0) g/dL Amylase (30-110) U/L Lipase (23-300) U/L Urine Color Yellow (Yellow) Urine Appearance Clear (Clear) Urine pH 7.5 (4.6-8.0) Ur Specific [place] 1.010 (1.005-1.030) Urine Protein Negative (Negative) Urine Glucose (UA) Negative (Negative) mg/dL Urine Ketones Negative (Negative) Urine Blood Negative (Negative) Urine Nitrite Negative (Negative) Urine Bilirubin Negative (Negative) Urine Urobilinogen 0.2 (0.2) mg/dL Ur Leukocyte Esterase Moderate A (Negative) U Hyaline Cast (Auto) NONE SEEN (0-2) /LPF Urine Microscopic RBC 0-2 (0-5) /HPF Urine Microscopic WBC 11-20 A (0-5) /HPF Ur Epithelial Cells Few (None Seen) /HPF Urine Bacteria Rare A (None Seen) /HPF Urine Culture Reflexed YES (NO) - Progress Progress: improved, pain not gone completely, re-examined Progress Note: 01/06/23 19:35 CT scan of the abdomen pelvis without contrast was interpreted by the radiologist and I reviewed the impression. There are no comparison films. There is beam artifact from the L4-L5 spinal hardware. Otherwise no obvious acute findings intra-abdominal he or intrapelvic. This patient's medical issue is 1 of moderate complexity. The level of complexity in the work-up performed is based on review of the patient's past medical history, review of the patient's medication list, review the patient's drug allergy list, history present illness and physical findings on examination. The work-up in this patient includes placement of intravenous line, CBC, CMP, amylase, lipase, twelve-lead EKG, troponin level and urinalysis. 01/06/23 19:39 Review of the patient's work-up results show the patient has a urinary tract infection as well as mild pancreatitis. The patient is stating that she does not want to be admitted into the hospital or transfer to another facility. I will discuss with her second time regarding placing the patient in observation versus signing out AGAINST MEDICAL ADVICE. 01/06/23 19:50 Patient prefers to be placed in observation in our facility. 01/06/23 19:[address] Son, our telehospitalist on-call tonight. I reviewed the patient history, presenting complaint, laboratory work-up with results. We will place this patient in observation and provide her with intravenous fluids, clear liquid diet only, pain medication intravenously, antiemetics intravenously and repeat labs in the morning. Discussed with : Manuel Counseled pt/family regarding: lab results, diagnosis, need for follow-up, rad results Medical Desision Making - Diagnostic Testing Diagnostic test were ordered, analyzed, and reviewed by me: Yes Radiological Interpretation: Reviewed by me, Teleradiologist Report - Risk of complications The pt has a high risk of morbidity or mortality based on: Decision regarding hospitilization or escalation of hosp level of care - Departure Departure Disposition: Observation Clinical Impression: UTI (urinary tract infection), Pancreatitis Condition: Stable Critical Care Time: No Referrals: MELE MITCHELL [Primary Care Provider] - Follow up/PCP as directed Additional Instructions: Drink plenty of fluids. Take your antibiotics and other medication as prescribed. Call your primary care doctor tomorrow, 01/07/2023 to make arranges for follow-up appointment the next 3 to 5 days for further evaluation and management including possible ultrasound the gallbladder if indicated. Avoid fatty greasy spicy foods.
[2023-01-06] MEDS ORDERED: PROTONIX 40 MG IV IV ONE ×2 (18:34→18:38)
[2023-01-06] MEDS ORDERED: Sodium Chloride 0.9% 1000 ML 1,000 ML IV STA (18:34)
[2023-01-06] MEDS ORDERED: Zofran 4 MG/2 ML VIAL IV ONE (18:34)
[2023-01-06] MEDS ORDERED: MORPHINE SULFATE 4 MG INJ IV ONE (18:34)
[2023-01-06] MEDS ORDERED: Zofran 4 MG/2 ML VIAL ONE (18:37)
[2023-01-06] MEDS ORDERED: MORPHINE SULFATE 4 MG INJ ONE (18:38)
[2023-01-06] MEDS ORDERED: Sodium Chloride 0.9% 1000 ML 1,000 ML ONE (18:38)
[2023-01-06 18:54] LABS: Absolute Neutrophil Ct (ANC) 4.59 x10^3/uL (1.4-6.9); BASOPHIL % 0.5 % (0.0-0.4); Basophil (Absolute #) 0.04 x10^3/uL (0-0.4); Eosinophil % 1.7 % (0.00-5.0); Eosinophil (Absolute #) 0.14 x10^3/uL (0-0.5); Hematocrit 41.1 % (35-47); Hemoglobin 13.4 g/dL (12.0-16.0); IMMATURE GRAN # 0.03 x10^3u/L (0.00-0.03); IMMATURE GRAN % 0.4 % (0.00-0.4); Lymphocyte (Absolute #) 2.97 x10^3/uL (1.0-4.6); Lymphocytes % 36.2 % (24.0-44.0); Mean Cell Volume 87.3 fL (78-100); Mean Corpuscular Hemoglobin 28.5 pg (26-32); Mean Corpuscular Hgb Concent. 32.6 g/dL (32-36); Mean Platelet Volume 8.9 fL (7.5-11.0); Monocyte (Absolute #) 0.43 x10^3/uL (0.0-1.3); Monocytes % 5.2 % (0.0-12.0); Platelet Count 399 x10^3/uL (150-450); Red Blood Count 4.71 x10^6/uL (4.1-5.4); Red Cell Distribution Width 13.2 % (11.5-14.0); White Blood Count 8.2 x10^3/uL (4.0-10.5)
[2023-01-06 19:01] LABS: Appearance Clear (Clear); Bacteria Rare /HPF (None Seen); Bilirubin Negative (Negative); Blood Negative (Negative); Epithelial Cells Few /HPF (None Seen); Glucose, Urine Negative (Negative); Hyaline Casts NONE SEEN /LPF (0-2); Ketones Negative (Negative); Leukocyte Esterase Moderate (Negative); Nitrite Negative (Negative); Ph 7.5 (4.6-8.0); Protein,Urine Dip Negative (Negative); RBC 0-2 /HPF (0-5); Urobilinogen 0.2 mg/dL (0.2)
[2023-01-06 19:07] LABS: ADD URINE CULTURE? YES (NO)
[2023-01-06 19:23] LABS: ANION GAP 15.9 MEQ/L (5-15); BILIRUBIN,TOTAL 0.2 mg/dL (0.2-1.3); Calcium 9.3 mg/dL (8.4-10.2); Creatinine 1 1.01 mg/dL (0.52-1.04); Potassium 4.9 mmol/L (3.5-5.1); Total Protein 6.9 g/dL (6.3-8.2)
[2023-01-06] MEDS ORDERED: ROCEPHIN 1 Gm-D5w 50 ml Bag** 1 G/50 ML IVPB IV STA (19:23)
[2023-01-06] MEDS ORDERED: ROCEPHIN 1 Gm-D5w 50 ml Bag** 1 G/50 ML IVPB IV ONE (19:46)
[2023-01-06] MEDS ORDERED: Hydromorphone 1 mg/ml Injection IV ONE (19:51)
[2023-01-06] MEDS ORDERED: Hydromorphone 1 mg/ml Injection ONE (19:53)
[2023-01-06] MEDS ORDERED: TYLENOL 325 MG PO PRN (20:29)
[2023-01-06] MEDS ORDERED: Sodium Chloride 0.9% 1000 ML 1,000 ML IV SCH (20:29)
[2023-01-06] MEDS ORDERED: Zofran 4 MG/2 ML VIAL IV PRN (20:29)
[2023-01-06] MEDS ORDERED: VENTOLIN COMMON CANISTER IH PRN (21:59)
--- NOTE | 2023-01-06 22:08 | PCM.HP ---
History of Present Illness - Chief Complaint Chief Complaint: Acute pancreatitis Date: 01/06/23 History of Present Illness: is a 62 year old female with history of COPD not on oxygen, TIA, HTN, and tobacco use, who presents with three days of intermittent epigastric dull to stabbing pain, radiating to the back. Worse with deep inspiration, and particularly worse today after eating large breakfast with sausage, toast, [place] toast, eggs and hash browns. No associated nausea, diarrhea, chest pain, dyspnea, or numbness. Pain relieved after IV dilaudid and morphine in ED. - Review of Systems Constitutional: Fever (none currently, but had fever two weeks ago, resolved with "one shot of steroids and antibiotics" at urgent care), No Fatigue, No Lethargy, No Night Sweats Eyes: No Symptoms Ears, Nose, & Throat: No Symptoms Respiratory: No Cough, No Short Of Breath, No Wheezing Cardiac: No Chest Pain, No Orthopnea Abdominal/Gastrointestinal: Abdominal Pain, No Nausea, No Vomiting, No Diarrhea, No Constipation Genitourinary Symptoms: No Dysuria All Other Systems: Reviewed and Negative Medications & Allergies Home Medications: Home Medication List Fluticasone Propionate [Flonase NASAL] 16 gm NS DAILY 02/20/17 [History Confirmed 01/06/23] Albuterol Sulfate [Ventolin Hfa] 18 gm IH Q4HPRN PRN 03/08/18 [History Confirmed 01/06/23] Aspirin [Aspirin EC] 81 mg PO DAILY 11/26/18 [History Confirmed 01/06/23] Famotidine 20 mg [Pepcid 20 MG] 20 mg PO BID 11/26/18 [History Confirmed 01/06/23] Atorvastatin Calcium [Lipitor 20MG Tablet] 20 mg PO DAILY 09/11/19 [History Confirmed 01/06/23] Umeclidinium Brm/Vilanterol Tr [Anoro Ellipta 62.5-25 Mcg INH] 1 puff IH DAILY 09/11/19 [History Confirmed 01/06/23] Isosorbide Mononitrate [Isosorbide Mononitrate ER] 60 mg PO DAILY 01/06/23 [History Confirmed 01/06/23] Meloxicam 15 mg [Meloxicam 15 MG] 1 ea DAILY 01/06/23 [History Confirmed 01/06/23] Allergies/Adverse Reactions: Allergies Allergy/AdvReac Type Severity Reaction Status Date / Time coconut Allergy Verified 01/06/23 18:18 - Past Medical History Past Medical History: Yes Neurological History: TIA ENT History: No Pertinent History Cardiac History: Hypertension Respiratory History: COPD, Emphysema Endocrine Medical History: Adrenal Insufficiency Musculoskelatal History: Osteoarthritis, Osteoporosis GI Medical History: Hemorrhoids, GERD History: No Pertinent History Pyscho-Social History: No Pertinent History Reproductive Disorders: Other Comment: TIA "a few years ago" she had R sided numbness. cysts on ovaries - Female History Are you now?: No - Past Surgical History Past Surgical History: Yes Neuro Surgical History: No Pertinent History Cardiac History: No Pertinent History Respiratory Surgery: No Pertinent History GI Surgical History: No Pertinent History Genitourinary Surgical Hx: No Pertinent History Musculskeletal Surgical Hx: Orthopedic Surgery Female Surgical History: Other Other Surgical History: rt arm,ovarian cyst removed, back "defuse" L4-5 and compression fracture repair - Social History Smoking Status: Current every day smoker How long have you smoked: 30+ years Exposure to second hand smoke: Yes Alcohol: None Drug Use: none Significant Family History: no pertinent family hx - Physical Exam Vital Signs: Vital Signs - 24 hr Temp Pulse Resp BP BP Pulse Ox 01/06/23 20:33 97.9 F 66 18 138/78 98 01/06/23 19:45 76 17 138/70 96 01/06/23 18:28 97.0 F 85 18 154/81 97 General Appearance: no apparent distress Neurologic Exam: alert, oriented x 3 Eye Exam: eyes nml inspection Respiratory Exam: normal breath sounds, lungs clear, No respiratory distress, No diminished breath sounds Cardiovascular Exam: regular rate/rhythm, No murmur Gastrointestinal/Abdomen Exam: tenderness (RUQ), No guarding, No rebound Results - Labs Lab/Micro Results: Lab Results-Last 24 Hours 01/06/23 01/06/23 01/06/23 Range/Units 18:36 18:50 18:50 WBC 8.2 (4.0-10.5) x10^3/uL RBC 4.71 (4.1-5.4) x10^6/uL Hgb 13.4 (12.0-16.0) g/dL Hct 41.1 (35-47) % MCV 87.3 (78-100) fL MCH 28.5 (26-32) pg MCHC 32.6 (32-36) g/dL RDW 13.2 (11.5-14.0) % Plt Count 399 (150-450) x10^3/uL MPV 8.9 (7.5-11.0) fL Gran % 56.0 (36.0-66.0) % Immature Gran % (Auto) 0.4 (0.00-0.4) % Nucleat RBC Rel Count 0.0 (0.00-0.1) % Eos # (Auto) 0.14 (0-0.5) x10^3/uL Immature Gran # (Auto) 0.03 (0.00-0.03) x10^3u/L Absolute Lymphs (auto) 2.97 (1.0-4.6) x10^3/uL Absolute Monos (auto) 0.43 (0.0-1.3) x10^3/uL Absolute Nucleated RBC 0.00 (0.00-0.01) x10^3u/L Lymphocytes % 36.2 (24.0-44.0) % Monocytes % 5.2 (0.0-12.0) % Eosinophils % 1.7 (0.00-5.0) % Basophils % 0.5 (0.0-0.4) % Absolute Granulocytes 4.59 (1.4-6.9) x10^3/uL Basophils # 0.04 (0-0.4) x10^3/uL Sodium 142 (137-145) mmol/L Potassium 4.9 (3.5-5.1) mmol/L Chloride 102 (98-107) mmol/L Carbon Dioxide 28 (22-30) mmol/L Anion Gap 15.9 H (5-15) MEQ/L BUN 15 (7-17) mg/dL Creatinine 1.01 (0.52-1.04) mg/dL Estimated GFR 59.0 ML/MIN Glucose 94 (74-106) mg/dL Calcium 9.3 (8.4-10.2) mg/dL Total Bilirubin 0.20 (0.2-1.3) mg/dL AST 20 (14-36) U/L ALT 12 (0-35) U/L Alkaline Phosphatase 97 (38-126) U/L Troponin I (0.000-0.034) ng/mL Serum Total Protein 6.9 (6.3-8.2) g/dL Albumin 4.0 (3.5-5.0) g/dL Amylase 142 H (30-110) U/L Lipase 1000 H (23-300) U/L Urine Color Yellow (Yellow) Urine Appearance Clear (Clear) Urine pH 7.5 (4.6-8.0) Ur Specific [place] 1.010 (1.005-1.030) Urine Protein Negative (Negative) Urine Glucose (UA) Negative (Negative) mg/dL Urine Ketones Negative (Negative) Urine Blood Negative (Negative) Urine Nitrite Negative (Negative) Urine Bilirubin Negative (Negative) Urine Urobilinogen 0.2 (0.2) mg/dL Ur Leukocyte Esterase Moderate A (Negative) U Hyaline Cast (Auto) NONE SEEN (0-2) /LPF Urine Microscopic RBC 0-2 (0-5) /HPF Urine Microscopic WBC 11-20 A (0-5) /HPF Ur Epithelial Cells Few (None Seen) /HPF Urine Bacteria Rare A (None Seen) /HPF Urine Culture Reflexed YES (NO) 01/06/23 Range/Units 18:50 WBC (4.0-10.5) x10^3/uL RBC (4.1-5.4) x10^6/uL Hgb (12.0-16.0) g/dL Hct (35-47) % MCV (78-100) fL MCH (26-32) pg MCHC (32-36) g/dL RDW (11.5-14.0) % Plt Count (150-450) x10^3/uL MPV (7.5-11.0) fL Gran % (36.0-66.0) % Immature Gran % (Auto) (0.00-0.4) % Nucleat RBC Rel Count (0.00-0.1) % Eos # (Auto) (0-0.5) x10^3/uL Immature Gran # (Auto) (0.00-0.03) x10^3u/L Absolute Lymphs (auto) (1.0-4.6) x10^3/uL Absolute Monos (auto) (0.0-1.3) x10^3/uL Absolute Nucleated RBC (0.00-0.01) x10^3u/L Lymphocytes % (24.0-44.0) % Monocytes % (0.0-12.0) % Eosinophils % (0.00-5.0) % Basophils % (0.0-0.4) % Absolute Granulocytes (1.4-6.9) x10^3/uL Basophils # (0-0.4) x10^3/uL Sodium (137-145) mmol/L Potassium (3.5-5.1) mmol/L Chloride (98-107) mmol/L Carbon Dioxide (22-30) mmol/L Anion Gap (5-15) MEQ/L BUN (7-17) mg/dL Creatinine (0.52-1.04) mg/dL Estimated GFR ML/MIN Glucose (74-106) mg/dL Calcium (8.4-10.2) mg/dL Total Bilirubin (0.2-1.3) mg/dL AST (14-36) U/L ALT (0-35) U/L Alkaline Phosphatase (38-126) U/L Troponin I < 0.012 (0.000-0.034) ng/mL Serum Total Protein (6.3-8.2) g/dL Albumin (3.5-5.0) g/dL Amylase (30-110) U/L Lipase (23-300) U/L Urine Color (Yellow) Urine Appearance (Clear) Urine pH (4.6-8.0) Ur Specific [place] (1.005-1.030) Urine Protein (Negative) Urine Glucose (UA) (Negative) mg/dL Urine Ketones (Negative) Urine Blood (Negative) Urine Nitrite (Negative) Urine Bilirubin (Negative) Urine Urobilinogen (0.2) mg/dL Ur Leukocyte Esterase (Negative) U Hyaline Cast (Auto) (0-2) /LPF Urine Microscopic RBC (0-5) /HPF Urine Microscopic WBC (0-5) /HPF Ur Epithelial Cells (None Seen) /HPF Urine Bacteria (None Seen) /HPF Urine Culture Reflexed (NO) - Radiology Impressions Radiology Exams & Impressions: Radiology Procedures Category Date Time Status ABDOMEN AND PELVIS W/0 CONTRAS [CT] Stat Exams 01/06/23 18:35 Taken - Other Procedures and Tests Respiratory Therapy 01/06/23 21:04 Smoking Cessation Education ONCE Assessment/Plan (1) Pancreatitis Current Visit: Yes Status: Acute Assessment & Plan: 62 y/o F with h/o COPD, HTN, TIA, here with acute pancreatitis. ## Epigastric pain - initially described an exertional component, but patient with normal troponins, and later describes severe worsening with large fatty meal. In combination with lipase, more suggestive of pancreatitis. Unable to review CT read, but per ED physician, no worrisome signs. - NPO - LR at 125 ml/hr (recent data suggests less frequent severe pancreatitis with LR over NS, although prior data has been mixed.) - PRN morphine 4, Zofran - if appetite improves tomorrow, can slowly advance diet ## Acute cystitis - pyuria on UA - follow up urine culture - continue Rocephin for now ## GERD - continue home famotidine Code Status: Full Prophylaxis: Ambulate Diet: NPO Code(s): K85.90 - ACUTE PANCREATITIS WITHOUT NECROSIS OR INFECTION, UNSP Telemedicine Encounter - Telemedicine Encounter Telemedicine Encounter: The entirety of this encounter was performed via Telemedicine"
[2023-01-06] MEDS: Lactated Ringers 1,000 ML IV SCH (22:37)
[2023-01-06] MEDS ORDERED: Robitussin-Dm Syrup PO PRN (23:23)
[2023-01-06] MEDS: MORPHINE SULFATE 4 MG INJ IV PRN (23:27)
[2023-01-06] MEDS: Pepcid 20 MG PO SCH (23:27)
[2023-01-07 04:36] LABS: Absolute Neutrophil Ct (ANC) 3.31 x10^3/uL (1.4-6.9); BASOPHIL % 0.8 % (0.0-0.4); Basophil (Absolute #) 0.05 x10^3/uL (0-0.4); Eosinophil % 1.9 % (0.00-5.0); Eosinophil (Absolute #) 0.12 x10^3/uL (0-0.5); Hematocrit 37.1 % (35-47); Hemoglobin 11.9 g/dL (12.0-16.0); IMMATURE GRAN # 0.03 x10^3u/L (0.00-0.03); IMMATURE GRAN % 0.5 % (0.00-0.4); Lymphocyte (Absolute #) 2.41 x10^3/uL (1.0-4.6); Mean Corpuscular Hemoglobin 28.5 pg (26-32); Mean Corpuscular Hgb Concent. 32.1 g/dL (32-36); Mean Platelet Volume 8.8 fL (7.5-11.0); Monocyte (Absolute #) 0.43 x10^3/uL (0.0-1.3); Monocytes % 6.8 % (0.0-12.0); Platelet Count 293 x10^3/uL (150-450); Red Blood Count 4.17 x10^6/uL (4.1-5.4); Red Cell Distribution Width 13.4 % (11.5-14.0); White Blood Count 6.4 x10^3/uL (4.0-10.5)
[2023-01-07 04:51] LABS: ALBUMIN 3.2 g/dL (3.5-5.0); ALKALINE PHOSPHATASE 83 U/L (38-126); AMYLASE 109 U/L (30-110); ANION GAP 10.9 MEQ/L (5-15); BLOOD UREA NITROGEN 13 mg/dL (7-17); CHLORIDE 109 mmol/L (98-107); Calcium 8.2 mg/dL (8.4-10.2); Carbon Dioxide 25 mmol/L (22-30); Creatinine 1 0.88 mg/dL (0.52-1.04); EST GLOMERULAR FILTRATION RATE > 60.0 ML/MIN; Glucose 92 mg/dL (74-106); LIPASE 610 U/L (23-300); Potassium 4.2 mmol/L (3.5-5.1); SGOT/AST 17 U/L (14-36); SGPT/ALT 11 U/L (0-35); SODIUM 141 mmol/L (137-145)
[2023-01-07] MEDS: Lactated Ringers 1,000 ML IV SCH (06:23)
[2023-01-07] MEDS: MORPHINE SULFATE 4 MG INJ IV PRN (06:25)
--- NOTE | 2023-01-07 07:21 | PCM.NOTE ---
Date and Time: 01/07/23714 Subjective Assessment: Ms. Lares is a 62 y/o F with h/o COPD, HTN, TIA,admitted 01/06/23 with acute pancreatitis as well as acute cystitis, currently being treated with IVF, pain management,anti-emetics, and empirical treatment with IV Rocephin. OBJECTIVE DATA Vital Signs: Vital Signs - 24 hr Temp Pulse Resp BP BP Pulse Ox 01/07/23 07:02 63 18 95 01/07/23 06:52 97.8 F 59 L 16 96/46 98 01/07/23 04:00 18 01/07/23 00:00 18 01/06/23 23:58 64 18 94 L 01/06/23 23:50 97.9 F 68 18 108/55 96 01/06/23 20:33 97.9 F 66 18 138/78 98 01/06/23 19:45 76 17 138/70 96 01/06/23 18:28 97.0 F 85 18 154/81 97 Pain Assessment - Last Documented Pain Intensity 6 Pain Scale Used 0-10 Pain Scale Intake and Output: Intake & Output 01/04/23 01/05/23 01/06/23 01/07/23 11:59 11:59 11:59 11:59 Weight 65.3 kg Lab Results: Lab Results-Last 24 Hours 01/06/23 01/06/23 01/06/23 Range/Units 18:36 18:50 18:50 WBC 8.2 (4.0-10.5) x10^3/uL RBC 4.71 (4.1-5.4) x10^6/uL Hgb 13.4 (12.0-16.0) g/dL Hct 41.1 (35-47) % MCV 87.3 (78-100) fL MCH 28.5 (26-32) pg MCHC 32.6 (32-36) g/dL RDW 13.2 (11.5-14.0) % Plt Count 399 (150-450) x10^3/uL MPV 8.9 (7.5-11.0) fL Gran % 56.0 (36.0-66.0) % Immature Gran % (Auto) 0.4 (0.00-0.4) % Nucleat RBC Rel Count 0.0 (0.00-0.1) % Eos # (Auto) 0.14 (0-0.5) x10^3/uL Immature Gran # (Auto) 0.03 (0.00-0.03) x10^3u/L Absolute Lymphs (auto) 2.97 (1.0-4.6) x10^3/uL Absolute Monos (auto) 0.43 (0.0-1.3) x10^3/uL Absolute Nucleated RBC 0.00 (0.00-0.01) x10^3u/L Lymphocytes % 36.2 (24.0-44.0) % Monocytes % 5.2 (0.0-12.0) % Eosinophils % 1.7 (0.00-5.0) % Basophils % 0.5 (0.0-0.4) % Absolute Granulocytes 4.59 (1.4-6.9) x10^3/uL Basophils # 0.04 (0-0.4) x10^3/uL Sodium 142 (137-145) mmol/L Potassium 4.9 (3.5-5.1) mmol/L Chloride 102 (98-107) mmol/L Carbon Dioxide 28 (22-30) mmol/L Anion Gap 15.9 H (5-15) MEQ/L BUN 15 (7-17) mg/dL Creatinine 1.01 (0.52-1.04) mg/dL Estimated GFR 59.0 ML/MIN Glucose 94 (74-106) mg/dL Calcium 9.3 (8.4-10.2) mg/dL Total Bilirubin 0.20 (0.2-1.3) mg/dL AST 20 (14-36) U/L ALT 12 (0-35) U/L Alkaline Phosphatase 97 (38-126) U/L Troponin I (0.000-0.034) ng/mL Serum Total Protein 6.9 (6.3-8.2) g/dL Albumin 4.0 (3.5-5.0) g/dL Amylase 142 H (30-110) U/L Lipase 1000 H (23-300) U/L Urine Color Yellow (Yellow) Urine Appearance Clear (Clear) Urine pH 7.5 (4.6-8.0) Ur Specific [place] 1.010 (1.005-1.030) Urine Protein Negative (Negative) Urine Glucose (UA) Negative (Negative) mg/dL Urine Ketones Negative (Negative) Urine Blood Negative (Negative) Urine Nitrite Negative (Negative) Urine Bilirubin Negative (Negative) Urine Urobilinogen 0.2 (0.2) mg/dL Ur Leukocyte Esterase Moderate A (Negative) U Hyaline Cast (Auto) NONE SEEN (0-2) /LPF Urine Microscopic RBC 0-2 (0-5) /HPF Urine Microscopic WBC 11-20 A (0-5) /HPF Ur Epithelial Cells Few (None Seen) /HPF Urine Bacteria Rare A (None Seen) /HPF Urine Culture Reflexed YES (NO) 01/06/23 01/07/23 01/07/23 Range/Units 18:50 04:13 04:13 WBC 6.4 (4.0-10.5) x10^3/uL RBC 4.17 (4.1-5.4) x10^6/uL Hgb 11.9 L (12.0-16.0) g/dL Hct 37.1 (35-47) % MCV 89.0 (78-100) fL MCH 28.5 (26-32) pg MCHC 32.1 (32-36) g/dL RDW 13.4 (11.5-14.0) % Plt Count 293 (150-450) x10^3/uL MPV 8.8 (7.5-11.0) fL Gran % 52.0 (36.0-66.0) % Immature Gran % (Auto) 0.5 H (0.00-0.4) % Nucleat RBC Rel Count 0.0 (0.00-0.1) % Eos # (Auto) 0.12 (0-0.5) x10^3/uL Immature Gran # (Auto) 0.03 (0.00-0.03) x10^3u/L Absolute Lymphs (auto) 2.41 (1.0-4.6) x10^3/uL Absolute Monos (auto) 0.43 (0.0-1.3) x10^3/uL Absolute Nucleated RBC 0.00 (0.00-0.01) x10^3u/L Lymphocytes % 38.0 (24.0-44.0) % Monocytes % 6.8 (0.0-12.0) % Eosinophils % 1.9 (0.00-5.0) % Basophils % 0.8 (0.0-0.4) % Absolute Granulocytes 3.31 (1.4-6.9) x10^3/uL Basophils # 0.05 (0-0.4) x10^3/uL Sodium 141 (137-145) mmol/L Potassium 4.2 (3.5-5.1) mmol/L Chloride 109 H (98-107) mmol/L Carbon Dioxide 25 (22-30) mmol/L Anion Gap 10.9 (5-15) MEQ/L BUN 13 (7-17) mg/dL Creatinine 0.88 (0.52-1.04) mg/dL Estimated GFR > 60.0 ML/MIN Glucose 92 (74-106) mg/dL Calcium 8.2 L (8.4-10.2) mg/dL Total Bilirubin 0.10 L (0.2-1.3) mg/dL AST 17 (14-36) U/L ALT 11 (0-35) U/L Alkaline Phosphatase 83 (38-126) U/L Troponin I < 0.012 (0.000-0.034) ng/mL Serum Total Protein 6.0 L (6.3-8.2) g/dL Albumin 3.2 L (3.5-5.0) g/dL Amylase 109 (30-110) U/L Lipase 610 H (23-300) U/L Urine Color (Yellow) Urine Appearance (Clear) Urine pH (4.6-8.0) Ur Specific [place] (1.005-1.030) Urine Protein (Negative) Urine Glucose (UA) (Negative) mg/dL Urine Ketones (Negative) Urine Blood (Negative) Urine Nitrite (Negative) Urine Bilirubin (Negative) Urine Urobilinogen (0.2) mg/dL Ur Leukocyte Esterase (Negative) U Hyaline Cast (Auto) (0-2) /LPF Urine Microscopic RBC (0-5) /HPF Urine Microscopic WBC (0-5) /HPF Ur Epithelial Cells (None Seen) /HPF Urine Bacteria (None Seen) /HPF Urine Culture Reflexed (NO) Radiology Exams: Radiology Procedures Category Date Time Status ABDOMEN AND PELVIS W/0 CONTRAS [CT] Stat Exams 01/06/23 18:35 Taken Assessment/Plan (1) Pancreatitis Current Visit: Yes Status: Acute Assessment & Plan: 01/06: Epigastric pain - initially described an exertional component, but patient with normal troponins, and later describes severe worsening with large fatty meal. In combination with lipase, more suggestive of pancreatitis. Unable to review CT read, but per ED physician, no worrisome signs. - NPO - LR at 125 ml/hr (recent data suggests less frequent severe pancreatitis with LR over NS, although prior data has been mixed.) - PRN morphine 4, Zofran - if appetite improves tomorrow, can slowly advance diet 01/07: Code(s): K85.90 - ACUTE PANCREATITIS WITHOUT NECROSIS OR INFECTION, UNSP (2) UTI (urinary tract infection) Current Visit: Yes Status: Acute Assessment & Plan: 01/06: Acute cystitis - pyuria on UA - follow up urine culture - continue Rocephin for now 01/07: Code(s): N39.0 - URINARY TRACT INFECTION, SITE NOT SPECIFIED (3) COPD (chronic obstructive pulmonary disease) Current Visit: No Status: Acute Assessment & Plan: -Does not appear to be in exacerbation, on RA with spo2@ 95% -Supplemental o2 to maintain >92% spo2 -DuoNebs/INH PRN (4) Essential hypertension Current Visit: No Status: Chronic Assessment & Plan: -slightly hypotensive, will continue to monitor, continue with home meds as appropriate Code(s): I10 - ESSENTIAL (PRIMARY) HYPERTENSION (5) GERD (gastroesophageal reflux disease) Current Visit: No Status: Chronic Assessment & Plan: - continue home famotidine Code Status: Full Prophylaxis: Ambulate Diet: NPO Code(s): K21.9 - GASTRO-ESOPHAGEAL REFLUX DISEASE WITHOUT ESOPHAGITIS
--- NOTE | 2023-01-07 08:49 | XRAY ---
Indication: Epigastric abdominal pain. Multiple contiguous axial images obtained through the abdomen and pelvis without contrast. Comparison: None Lung bases demonstrate mild pulmonary emphysema with minimal fibrosis/scarring. No infiltrate or effusion. Heart not enlarged. Bilateral L4-L5 posterior fusion hardware produces beam artifact. Stomach distended with food/fluid. Gallbladder contracted without gallstones. Noncontrasted stomach and bowel loops appear nonobstructed with normal-appearing appendix. No free fluid/air. Remaining liver, gallbladder, pancreas, spleen, adrenal glands, kidneys, ureters, bladder, and uterus are unremarkable for noncontrast exam. Mild scattered aortoiliac calcifications without AAA. Osseous structures intact with L2/L3 vertebroplasty. Impression: 1. Beam artifact from L4-L5 fusion hardware. 2. Chronic findings including pulmonary emphysema, arteriosclerotic disease, and L2/L3 vertebroplasty. 3. Remaining CT abdomen/pelvis without contrast exam is negative.
[2023-01-07] MEDS: Pepcid 20 MG PO SCH (09:09)
[2023-01-07] MEDS ORDERED: ROCEPHIN 1 Gm-D5w 50 ml Bag** 1 G/50 ML IVPB IV SCH (10:00)
[2023-01-07] MEDS ORDERED: ZOCOR 20MG PO SCH (10:00)
[2023-01-07] MEDS ORDERED: ECOTRIN 81 MG PO SCH (10:00)
[2023-01-07] MEDS ORDERED: Imdur 60MG PO SCH (10:00)
--- NOTE | 2023-01-07 10:06 | PCM.DS ---
Discharge Summary Date of Admission: 01/06/23 20:23 Date of Discharge: 01/07/23 Admitting Physician: LUCIANA MONTANA MD Consults: Consults on Case 01/06/23 21:04 Case Management [facility] Needs Assessment ROUTINE Primary Care Provider: MELE MITCHELL Allergies Allergies coconut Allergy (Verified 01/06/23 18:18) Hospital Summary - Hospital Course Hospital Course: Ms. Lares is a 62 y/o F with h/o COPD, HTN, TIA,admitted 01/06/23 with first episode of acute pancreatitis (no history of alcoholism) as well as acute cystitis, treated with IVF, pain management,anti-emetics, and empirical treat ment with IV Rocephin. CT of ab/pelvis negative for acute findings. No overnight events noted. Laps unremarkable. Lipase trending down. Tolerating a diet with no N/V. Will discharge on cefdinir. Advised close follow up with PCP for GI referral for new onset pancreatitis. New Diagnosis: acute pancreatitis/UTI New Medications: Cefdinir Follow Up: PCP Results pending: bcult urine cult Latest Assessment & Plan (1) Pancreatitis Current Visit: Yes Status: Acute Assessment & Plan: 01/06: Epigastric pain - initially described an exertional component, but patient with normal troponins, and later describes severe worsening with large fatty meal. In combination with lipase, more suggestive of pancreatitis. Unable to review CT read, but per ED physician, no worrisome signs. - NPO - LR at 125 ml/hr (recent data suggests less frequent severe pancreatitis with LR over NS, although prior data has been mixed.) - PRN morphine 4, Zofran - if appetite improves tomorrow, can slowly advance diet 01/07: -D/C if able to tolerate diet -Pain controlled/ no N/V after CLD -GI per pcp as OP Code(s): K85.90 - ACUTE PANCREATITIS WITHOUT NECROSIS OR INFECTION, UNSP (2) UTI (urinary tract infection) Current Visit: Yes Status: Acute Assessment & Plan: 01/06: Acute cystitis - pyuria on UA - follow up urine culture - continue Rocephin for now 01/07: D/C on cefdinir, follow culture will call with any med changes Code(s): N39.0 - URINARY TRACT INFECTION, SITE NOT SPECIFIED (3) COPD (chronic obstructive pulmonary disease) Current Visit: No Status: Acute Assessment & Plan: -Does not appear to be in exacerbation, on RA with spo2@ 95% -Supplemental o2 to maintain >92% spo2 -DuoNebs/INH PRN (4) Essential hypertension Current Visit: No Status: Chronic Assessment & Plan: -slightly hypotensive, will continue to monitor, continue with home meds as appropriate Code(s): I10 - ESSENTIAL (PRIMARY) HYPERTENSION (5) GERD (gastroesophageal reflux disease) Current Visit: No Status: Chronic Assessment & Plan: - continue home famotidine I spent greater than 45 minutes [id number] with the patient on the day of discharge performing discharge exam, discussing hospital stay and discharge instructions with patient and caregivers, preparation of discharge records, prescriptions & referral forms and addressing any questions/concerns the patient had as documented above. - Vitals & Intake/Output Vital Signs: Vital Signs Temperature 97.8 F 01/07/23 06:52 Pulse Rate 63 01/07/23 07:02 Respiratory Rate 18 01/07/23 07:02 Blood Pressure 96/46 01/07/23 06:52 O2 Sat by Pulse Oximetry 95 01/07/23 07:02 Intake & Output: Intake & Output 01/04/23 01/05/23 01/06/23 01/07/23 11:59 11:59 11:59 11:59 Intake Total 580 Balance 580 Weight 65.3 kg - Lab Result Diagrams: 01/07/23 04:13 01/07/23 04:13 Lab Results-Last 24 Hrs: Lab Results-Last 24 Hours 01/06/23 01/06/23 01/06/23 Range/Units 18:36 18:50 18:50 WBC 8.2 (4.0-10.5) x10^3/uL RBC 4.71 (4.1-5.4) x10^6/uL Hgb 13.4 (12.0-16.0) g/dL Hct 41.1 (35-47) % MCV 87.3 (78-100) fL MCH 28.5 (26-32) pg MCHC 32.6 (32-36) g/dL RDW 13.2 (11.5-14.0) % Plt Count 399 (150-450) x10^3/uL MPV 8.9 (7.5-11.0) fL Gran % 56.0 (36.0-66.0) % Immature Gran % (Auto) 0.4 (0.00-0.4) % Nucleat RBC Rel Count 0.0 (0.00-0.1) % Eos # (Auto) 0.14 (0-0.5) x10^3/uL Immature Gran # (Auto) 0.03 (0.00-0.03) x10^3u/L Absolute Lymphs (auto) 2.97 (1.0-4.6) x10^3/uL Absolute Monos (auto) 0.43 (0.0-1.3) x10^3/uL Absolute Nucleated RBC 0.00 (0.00-0.01) x10^3u/L Lymphocytes % 36.2 (24.0-44.0) % Monocytes % 5.2 (0.0-12.0) % Eosinophils % 1.7 (0.00-5.0) % Basophils % 0.5 (0.0-0.4) % Absolute Granulocytes 4.59 (1.4-6.9) x10^3/uL Basophils # 0.04 (0-0.4) x10^3/uL Sodium 142 (137-145) mmol/L Potassium 4.9 (3.5-5.1) mmol/L Chloride 102 (98-107) mmol/L Carbon Dioxide 28 (22-30) mmol/L Anion Gap 15.9 H (5-15) MEQ/L BUN 15 (7-17) mg/dL Creatinine 1.01 (0.52-1.04) mg/dL Estimated GFR 59.0 ML/MIN Glucose 94 (74-106) mg/dL Calcium 9.3 (8.4-10.2) mg/dL Total Bilirubin 0.20 (0.2-1.3) mg/dL AST 20 (14-36) U/L ALT 12 (0-35) U/L Alkaline Phosphatase 97 (38-126) U/L Troponin I (0.000-0.034) ng/mL Serum Total Protein 6.9 (6.3-8.2) g/dL Albumin 4.0 (3.5-5.0) g/dL Amylase 142 H (30-110) U/L Lipase 1000 H (23-300) U/L Urine Color Yellow (Yellow) Urine Appearance Clear (Clear) Urine pH 7.5 (4.6-8.0) Ur Specific [place] 1.010 (1.005-1.030) Urine Protein Negative (Negative) Urine Glucose (UA) Negative (Negative) mg/dL Urine Ketones Negative (Negative) Urine Blood Negative (Negative) Urine Nitrite Negative (Negative) Urine Bilirubin Negative (Negative) Urine Urobilinogen 0.2 (0.2) mg/dL Ur Leukocyte Esterase Moderate A (Negative) U Hyaline Cast (Auto) NONE SEEN (0-2) /LPF Urine Microscopic RBC 0-2 (0-5) /HPF Urine Microscopic WBC 11-20 A (0-5) /HPF Ur Epithelial Cells Few (None Seen) /HPF Urine Bacteria Rare A (None Seen) /HPF Urine Culture Reflexed YES (NO) 01/06/23 01/07/23 01/07/23 Range/Units 18:50 04:13 04:13 WBC 6.4 (4.0-10.5) x10^3/uL RBC 4.17 (4.1-5.4) x10^6/uL Hgb 11.9 L (12.0-16.0) g/dL Hct 37.1 (35-47) % MCV 89.0 (78-100) fL MCH 28.5 (26-32) pg MCHC 32.1 (32-36) g/dL RDW 13.4 (11.5-14.0) % Plt Count 293 (150-450) x10^3/uL MPV 8.8 (7.5-11.0) fL Gran % 52.0 (36.0-66.0) % Immature Gran % (Auto) 0.5 H (0.00-0.4) % Nucleat RBC Rel Count 0.0 (0.00-0.1) % Eos # (Auto) 0.12 (0-0.5) x10^3/uL Immature Gran # (Auto) 0.03 (0.00-0.03) x10^3u/L Absolute Lymphs (auto) 2.41 (1.0-4.6) x10^3/uL Absolute Monos (auto) 0.43 (0.0-1.3) x10^3/uL Absolute Nucleated RBC 0.00 (0.00-0.01) x10^3u/L Lymphocytes % 38.0 (24.0-44.0) % Monocytes % 6.8 (0.0-12.0) % Eosinophils % 1.9 (0.00-5.0) % Basophils % 0.8 (0.0-0.4) % Absolute Granulocytes 3.31 (1.4-6.9) x10^3/uL Basophils # 0.05 (0-0.4) x10^3/uL Sodium 141 (137-145) mmol/L Potassium 4.2 (3.5-5.1) mmol/L Chloride 109 H (98-107) mmol/L Carbon Dioxide 25 (22-30) mmol/L Anion Gap 10.9 (5-15) MEQ/L BUN 13 (7-17) mg/dL Creatinine 0.88 (0.52-1.04) mg/dL Estimated GFR > 60.0 ML/MIN Glucose 92 (74-106) mg/dL Calcium 8.2 L (8.4-10.2) mg/dL Total Bilirubin 0.10 L (0.2-1.3) mg/dL AST 17 (14-36) U/L ALT 11 (0-35) U/L Alkaline Phosphatase 83 (38-126) U/L Troponin I < 0.012 (0.000-0.034) ng/mL Serum Total Protein 6.0 L (6.3-8.2) g/dL Albumin 3.2 L (3.5-5.0) g/dL Amylase 109 (30-110) U/L Lipase 610 H (23-300) U/L Urine Color (Yellow) Urine Appearance (Clear) Urine pH (4.6-8.0) Ur Specific [place] (1.005-1.030) Urine Protein (Negative) Urine Glucose (UA) (Negative) mg/dL Urine Ketones (Negative) Urine Blood (Negative) Urine Nitrite (Negative) Urine Bilirubin (Negative) Urine Urobilinogen (0.2) mg/dL Ur Leukocyte Esterase (Negative) U Hyaline Cast (Auto) (0-2) /LPF Urine Microscopic RBC (0-5) /HPF Urine Microscopic WBC (0-5) /HPF Ur Epithelial Cells (None Seen) /HPF Urine Bacteria (None Seen) /HPF Urine Culture Reflexed (NO) - Radiology Exams Ordered Rad Exams-Entire Visit: Radiology Procedures Category Date Time Status ABDOMEN AND PELVIS W/0 CONTRAS [CT] Stat Exams 01/06/23 18:35 Completed - Procedures and Test Procedures and Tests throughout Hospitalization: Therapy Orders & Screens 01/06/23 21:04 Smoking Cessation Education ONCE Comment: Diagnosis: Acute pancreatitis Smoking Status: Current every day smoker How long have you smoked: 30+ years Have you smoked in the past 12 months: Yes Approximately how many cigarettes per day: 10 Do you dip or chew tobacco: No 01/06/23 23:58 Respiratory Therapy Assessment DAILY Comment: Diagnosis: Acute pancreatitis Discharge Exam General Appearance: no apparent distress Neurologic Exam: alert, oriented x 3, cooperative Eye Exam: PERRL Ears, Nose, Throat Exam: normal ENT inspection Neck Exam: normal inspection Respiratory Exam: normal breath sounds Cardiovascular Exam: regular rate/rhythm, normal heart sounds Gastrointestinal/Abdomen Exam: soft, normal bowel sounds, tenderness Pelvic Exam: deferred Rectal Exam: deferred Extremity Exam: normal inspection Skin Exam: normal color Final Diagnosis/Problem List - Final Discharge Diagnosis/Problem (1) Pancreatitis Status: Acute Code(s): K85.90 - ACUTE PANCREATITIS WITHOUT NECROSIS OR INFECTION, UNSP (2) UTI (urinary tract infection) Status: Acute Code(s): N39.0 - URINARY TRACT INFECTION, SITE NOT SPECIFIED (3) COPD (chronic obstructive pulmonary disease) Status: Chronic (4) Essential hypertension Status: Chronic Code(s): I10 - ESSENTIAL (PRIMARY) HYPERTENSION (5) GERD (gastroesophageal reflux disease) Status: Chronic Code(s): K21.9 - GASTRO-ESOPHAGEAL REFLUX DISEASE WITHOUT ESOPHAGITIS - Discharge Disposition: Home, Self-Care Condition: Stable Prescriptions: New Cefdinir 300 mg PO BID 5 Days #10 cap Hydrocodone/Acetaminophen [Hydrocodone-Acetamin 5-325 mg] 1 tab PO Q4HPRN PRN 3 Days #18 tablet MDD 6 PRN Reason: Pain Continue Fluticasone Propionate [Flonase NASAL] 16 gm NS DAILY Albuterol Sulfate [Ventolin Hfa] 18 gm IH Q4HPRN PRN PRN Reason: Shortness Of Breath/Wheezing Famotidine 20 mg [Pepcid 20 MG] 20 mg PO BID Aspirin [Aspirin EC] 81 mg PO DAILY Umeclidinium Brm/Vilanterol Tr [Anoro Ellipta 62.5-25 Mcg INH] 1 puff IH DAILY Atorvastatin Calcium [Lipitor 20MG Tablet] 20 mg PO DAILY Meloxicam 15 mg [Meloxicam 15 MG] 1 ea DAILY Isosorbide Mononitrate [Isosorbide Mononitrate ER] 60 mg PO DAILY Instructions: Pancreatitis (DC), Urinary Tract Infection, Adult (DC) Follow up with: MELE MITCHELL [Primary Care Provider] - 01/13/23 9:45 am (3-5 days ) Forms: Discharge Instructions
[2023-01-07 11:23] VITALS: RESP 16
[2023-01-07 15:16] LABS: Risk Ratio 5.7
[2023-01-07 15:59] VITALS: TEMP 97.3; O2SAT 97
[2023-01-07 17:30] VITALS: BP 124/55; PULSE 70
== END 2023-01-07 18:00 | disposition home or self-care (01) ==
LOC: ED 18:08 → MED SURG 20:23
PROVIDERS: ADMIT Internal Medicine; ATTEND Internal Medicine
DX: K85.90 Acute pancreatitis without necrosis or infection, unspecified (principal); N39.0 Urinary tract infection, site not specified; J44.9 Chronic obstructive pulmonary disease, unspecified; I10 Essential (primary) hypertension; K21.9 Gastro-esophageal reflux disease without esophagitis; Z86.73 Personal history of transient ischemic attack (TIA), and cerebral infarction without residual deficits; Z79.899 Other long term (current) drug therapy; Z20.828 Contact with and (suspected) exposure to other viral communicable diseases; Z72.0 Tobacco use
CPT/HCPCS: 36000; 36415; 74176; 80053; 80061; 81001; 82150; 83690; 83721; 84484; 85025; 87086; 93005; 94760; 96374; 96375; 99285; Q3014; J0696; J1170; J2270; J2405; A9270-GY

== ENCOUNTER 2023-03-22 15:37 | Emergency (ER) | payer MEDICARE ==
[2023-03-22 16:40] VITALS: TEMP 97.7
--- NOTE | 2023-03-22 17:18 | ERPHSYRPT ---
- History of Present Illness Time Seen by Provider: 03/22/23 17:00 Source: patient Exam Limitations: no limitations Patient Subjective Stated Complaint: Dizziness/weakness Triage Nursing Assessment: Patient ambulated back to ED and transferred self to bed. Patient A+O X 3. Patient's skin pink, warm and dry. Patient complains of dizziness and weakness today. Patient stated her upper body has been numb and tingling today. Patient denies pain or discomfort. Patient also complains of headache and nausea, but denies vomiting or diarrrhea. Physician History: 63 years old female with past medical history of COPD, tobacco use, TIAs, presenting to the emergency room with chief complaint of numbness and tingling to her both shoulders upper chest and posterior upper back that she has been having for months. The patient is also complaining of neck pain and popping in her neck. She is also complaining of generalized weakness. She denies any chest pain or shortness of breath. No coughing, no fever or chills. She is denying any abdominal pain nausea or vomiting. She denies any weakness to her upper or lower extremities. The numbness and tingling extends from her shoulders down to her hands. Allergies/Adverse Reactions: coconut Allergy (Verified 03/22/23 16:26) Hx Tetanus, Diphtheria Vaccination/Date Given: No Hx Influenza Vaccination/Date Given: Yes Hx Pneumococcal Vaccination/Date Given: No Travel Risk - International Travel Have you traveled outside of the country in past 3 weeks: No - Coronavirus Screening Are you exhibiting any of the following symptoms?: No Close contact with a COVID-19 positive Pt in past 14-21 Days: No - Vaccine Status Have you recieved a Covid-19 vaccination: Yes Security Dispatcher: Moderna - Vaccination Dates Date of 2cond Vaccination (if applicable): ? - Review of Systems Constitutional: Weakness, No Fever, No Chills Eyes: No Symptoms Ears, Nose, & Throat: No Symptoms Respiratory: No Cough, No Dyspnea Cardiac: No Chest Pain, No Edema, No Syncope Abdominal/Gastrointestinal: No Abdominal Pain, No Nausea, No Vomiting, No Diarrhea Genitourinary Symptoms: No Dysuria Musculoskeletal: No Back Pain, No Neck Pain Skin: No Rash Neurological: Dizziness, Sensory Changes, Other (Numbness and tingling both shoulders, upper anterior and lower chest with numbness and tingling radiating down both arms to the hands the above symptoms for a few months) Psychological: No Symptoms Endocrine: No Symptoms All Other Systems: Reviewed and Negative - Past Medical History Pertinent Past Medical History: Yes Neurological History: TIA ENT History: No Pertinent History Cardiac History: Hypertension Respiratory History: COPD, Emphysema Endocrine Medical History: Adrenal Insufficiency Musculoskeletal History: Osteoarthritis, Osteoporosis GI Medical History: Hemorrhoids, GERD History: No Pertinent History Psycho-Social History: No Pertinent History Female Reproductive Disorders: Other Other Medical History: TIA "a few years ago" she had R sided numbness. cysts on ovaries - Past Surgical History Past Surgical History: Yes Neuro Surgical History: No Pertinent History Cardiac: No Pertinent History Respiratory: No Pertinent History Gastrointestinal: No Pertinent History Genitourinary: No Pertinent History Musculoskeletal: Orthopedic Surgery Female Surgical History: Other Other Surgical History: rt arm,ovarian cyst removed, back "defuse" L4-5 and com pression fracture repair - Social History Smoking Status: Current every day smoker How long have you smoked: 30+ years Exposure to second hand smoke: Yes Drug Use: none Patient Lives Alone: No Significant Family History: no pertinent family hx - Nursing Vital Signs Nursing Vital Signs: Initial Vital Signs Pulse Rate 72 03/22/23 16:29 Respiratory Rate 15 03/22/23 16:29 Blood Pressure 159/75 03/22/23 16:29 O2 Sat by Pulse Oximetry 97 03/22/23 16:29 Pain Scale Pain Intensity 0 - [place] Coma Scale Best Eye Response (Arnav): (4) open spontaneously Best Verbal Response (Arnav): (5) oriented Best Motor Response (Arnav): (6) obeys commands Arnav Total: 15 - Physical Exam General Appearance: no apparent distress Eye Exam: bilateral eye: normal inspection, PERRL, EOMI Ears, Nose, Throat Exam: normal ENT inspection, moist mucous membranes Neck Exam: normal inspection, non-tender, supple Respiratory: normal breath sounds, lungs clear, airway intact, No respiratory distress Cardiovascular: regular rate/rhythm, No edema Gastrointestinal: soft, No tenderness, No distention Back Exam: normal inspection Extremity Exam: normal inspection, No pedal edema 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, oriented x 3 patient monitor Exam: normal hearing, normal speech, PERRL, tongue midline Coordination/Gait: normal finger to nose, normal gait Motor/Sensory: no motor deficit, no sensory deficit, negative Babinski's sign DTR: bicep (R): 1+, bicep (L): 1+, tricep (R): 1+, tricep (L): 1+, knee (R): 1+, knee (L): 1+ Skin Exam: normal color, warm, dry, No rash SpO2: 98 O2 Delivery: Room Air - Course Nursing assessment & vital signs reviewed: Yes Ordered Tests: Active Orders 24 hr Category Date Time Status EKG-ER Only STAT Care 03/22/23 17:25 Active NPO (ED) STAT Care 03/22/23 17:14 Active CERVICAL SPINE WO CONTRAST [CT] Stat Exams 03/22/23 17:16 Completed CHEST 1 VIEW (PORTABLE) Stat Exams 03/22/23 17:15 Completed HEAD WITHOUT CONTRAST [CT] Stat Exams 03/22/23 17:15 Completed CBC W DIFF Stat Lab 03/22/23 17:20 Completed CMP Stat Lab 03/22/23 17:20 Completed CULTURE,URINE Stat Lab 03/22/23 17:16 Received TROPONIN Q4H Lab 03/22/23 17:20 Completed TROPONIN Q4H Lab 03/22/23 21:30 Ordered UA W/RFX UR CULTURE Stat Lab 03/22/23 17:16 Completed Medication Summary Generic Name Dose Route Start Last Admin Trade Name Freq PRN Reason Stop Dose Admin Sodium Chloride 1,000 mls @ 500 mls/hr 03/22/23 19:03 03/22/23 19:31 Sodium Chloride 0.9% 1000 Ml IV 03/22/23 21:02 500 mls/hr .Q2H STA Administration Discontinued Medications Generic Name Dose Route Start Last Admin Trade Name Freq PRN Reason Stop Dose Admin Ceftriaxone Sodium/Dextrose 1 g in 50 mls @ 100 mls/hr 03/22/23 19:04 03/22/23 20:04 Rocephin 1 Gm-D5w 50 Ml Bag IV 03/22/23 19:33 Infused STAT STA Infusion Sodium Chloride Confirm 03/22/23 19:24 Sodium Chloride 0.9% 1000 Ml Administered 03/22/23 19:25 Dose 1,000 mls @ ud .ROUTE .STK-MED ONE Ceftriaxone Sodium/Dextrose Confirm 03/22/23 19:25 Rocephin 1 Gm-D5w 50 Ml Bag Administered 03/22/23 19:26 Dose 1 g in 50 mls @ ud IV .STK-MED ONE Lab/Rad Data: Laboratory Result Diagrams 03/22/23 17:20 03/22/23 17:20 Laboratory Results 03/22/23 03/22/23 03/22/23 Range/Units 17:20 17:20 17:20 WBC 6.6 (4.0-10.5) x10^3/uL RBC 4.74 (4.1-5.4) x10^6/uL Hgb 13.5 (12.0-16.0) g/dL Hct 43.2 (35-47) % MCV 91.1 (78-100) fL MCH 28.5 (26-32) pg MCHC 31.3 L (32-36) g/dL RDW 13.6 (11.5-14.0) % Plt Count 334 (150-450) x10^3/uL MPV 9.4 (7.5-11.0) fL Gran % 54.1 (36.0-66.0) % Immature Gran % (Auto) 0.3 (0.00-0.4) % Nucleat RBC Rel Count 0.0 (0.00-0.1) % Eos # (Auto) 0.10 (0-0.5) x10^3/uL Immature Gran # (Auto) 0.02 (0.00-0.03) x10^3u/L Absolute Lymphs (auto) 2.53 (1.0-4.6) x10^3/uL Absolute Monos (auto) 0.33 (0.0-1.3) x10^3/uL Absolute Nucleated RBC 0.00 (0.00-0.01) x10^3u/L Lymphocytes % 38.2 (24.0-44.0) % Monocytes % 5.0 (0.0-12.0) % Eosinophils % 1.5 (0.00-5.0) % Basophils % 0.9 (0.0-0.4) % Absolute Granulocytes 3.59 (1.4-6.9) x10^3/uL Basophils # 0.06 (0-0.4) x10^3/uL Sodium 135 L (137-145) mmol/L Potassium 4.4 (3.5-5.1) mmol/L Chloride 107 (98-107) mmol/L Carbon Dioxide 16 L* (22-30) mmol/L Anion Gap 16.2 H (5-15) MEQ/L BUN 23 H (7-17) mg/dL Creatinine 0.93 (0.52-1.04) mg/dL Estimated GFR 69.5 ML/MIN Glucose 85 (74-106) mg/dL Calcium 9.0 (8.4-10.2) mg/dL Total Bilirubin 0.40 (0.2-1.3) mg/dL AST 31 (14-36) U/L ALT 9 (0-35) U/L Alkaline Phosphatase 107 (38-126) U/L Troponin I < 0.012 (0.000-0.034) ng/mL Serum Total Protein 7.7 (6.3-8.2) g/dL Albumin 4.0 (3.5-5.0) g/dL Urine Color (Yellow) Urine Appearance (Clear) Urine pH (4.6-8.0) Ur Specific [place] (1.005-1.030) Urine Protein (Negative) Urine Glucose (UA) (Negative) mg/dL Urine Ketones (Negative) Urine Blood (Negative) Urine Nitrite (Negative) Urine Bilirubin (Negative) Urine Urobilinogen (0.2) mg/dL Ur Leukocyte Esterase (Negative) U Hyaline Cast (Auto) (0-2) /LPF Urine Microscopic RBC (0-5) /HPF Urine Microscopic WBC (0-5) /HPF Ur Epithelial Cells (None Seen) /HPF Urine Bacteria (None Seen) /HPF Urine Culture Reflexed (NO) 03/22/23 Range/Units 17:16 WBC (4.0-10.5) x10^3/uL RBC (4.1-5.4) x10^6/uL Hgb (12.0-16.0) g/dL Hct (35-47) % MCV (78-100) fL MCH (26-32) pg MCHC (32-36) g/dL RDW (11.5-14.0) % Plt Count (150-450) x10^3/uL MPV (7.5-11.0) fL Gran % (36.0-66.0) % Immature Gran % (Auto) (0.00-0.4) % Nucleat RBC Rel Count (0.00-0.1) % Eos # (Auto) (0-0.5) x10^3/uL Immature Gran # (Auto) (0.00-0.03) x10^3u/L Absolute Lymphs (auto) (1.0-4.6) x10^3/uL Absolute Monos (auto) (0.0-1.3) x10^3/uL Absolute Nucleated RBC (0.00-0.01) x10^3u/L Lymphocytes % (24.0-44.0) % Monocytes % (0.0-12.0) % Eosinophils % (0.00-5.0) % Basophils % (0.0-0.4) % Absolute Granulocytes (1.4-6.9) x10^3/uL Basophils # (0-0.4) x10^3/uL Sodium (137-145) mmol/L Potassium (3.5-5.1) mmol/L Chloride (98-107) mmol/L Carbon Dioxide (22-30) mmol/L Anion Gap (5-15) MEQ/L BUN (7-17) mg/dL Creatinine (0.52-1.04) mg/dL Estimated GFR ML/MIN Glucose (74-106) mg/dL Calcium (8.4-10.2) mg/dL Total Bilirubin (0.2-1.3) mg/dL AST (14-36) U/L ALT (0-35) U/L Alkaline Phosphatase (38-126) U/L Troponin I (0.000-0.034) ng/mL Serum Total Protein (6.3-8.2) g/dL Albumin (3.5-5.0) g/dL Urine Color Yellow (Yellow) Urine Appearance Clear (Clear) Urine pH 5.5 (4.6-8.0) Ur Specific [place] 1.010 (1.005-1.030) Urine Protein Negative (Negative) Urine Glucose (UA) Negative (Negative) mg/dL Urine Ketones Negative (Negative) Urine Blood Trace (Negative) Urine Nitrite Negative (Negative) Urine Bilirubin Negative (Negative) Urine Urobilinogen 0.2 (0.2) mg/dL Ur Leukocyte Esterase Moderate A (Negative) U Hyaline Cast (Auto) NONE SEEN (0-2) /LPF Urine Microscopic RBC 0-2 (0-5) /HPF Urine Microscopic WBC 11-20 A (0-5) /HPF Ur Epithelial Cells Few (None Seen) /HPF Urine Bacteria Rare A (None Seen) /HPF Urine Culture Reflexed YES (NO) - Progress Progress: improved Progress Note: 03/22/23 17:24 62 years old female with past medical history of COPD, tobacco use, TIAs. The patient is presenting to emergency room complaining of numbness, tingling to her neck upper chest both shoulders radiating down to her upper extremities that she been having for the last couple of months. She is also feeling weak and dizzy. Emergency room course The patient has a workup for this chronic numbness and tingling to her upper chest and upper extremities, which could be secondary to a pinched nerve from a herniated disc. Will order a CT scan of the brain and cervical spine without contrast. Check CBC, CMP, UA, chest x-ray, EKG, troponin. 03/22/23 19:05 The patient remained stable, her workup revealed normal white count 6.6, hemoglobin 13.5, hematocrit 43, platelets 334. BUN at 23, creatinine 0.93, glucose 85. Sodium 135, potassium 4.4, chloride 107, bicarb 16. Both CT scan of the brain and cervical spine are negative for any acute findings. Her urinalysis is positive for moderate leukocyte esterase, 20 white blood cells and rare bacteria. Urine culture and sensitivity requested. The patient will be given IV fluids 0.9 saline 500 cc an hour, Rocephin 1 g IV. 03/22/23 20:43 The patient received 700 cc of IV saline and 1 g of IV Rocephin She is feeling better and wanting go home. The patient will be discharged home, she will be prescribed Cipro 250 twice a day for 7days. She needs to follow-up with her family physician in 2 to 3 days. She also need to follow-up with a neurologist in regard to this chronic numbness and tingling in her shoulders neck and upper extremities. - Departure Departure Disposition: Home Clinical Impression: Numbness and tingling of both upper extremities, Dizziness, nonspecific, UTI (urinary tract infection), Dehydration Condition: Stable Critical Care Time: No Referrals: MELE MITCHELL [Primary Care Provider] - Follow up/PCP as directed Instructions: Dizziness, Nonvertigo, (DC) Additional Instructions: Rest, increase fluid intake. Follow-up with the family physician in 2 to 3 days. Follow-up with neurologist on outpatient basis in regard to the numbness and tingling to the upper extremities. Cipro 250 mg twice a day for 7 days. Prescriptions: Ciprofloxacin [Cipro 500 MG] 250 mg PO BID #14 tablet
[2023-03-22 17:28] LABS: Absolute Neutrophil Ct (ANC) 3.59 x10^3/uL (1.4-6.9); BASOPHIL % 0.9 % (0.0-0.4); Basophil (Absolute #) 0.06 x10^3/uL (0-0.4); Eosinophil % 1.5 % (0.00-5.0); Hematocrit 43.2 % (35-47); Hemoglobin 13.5 g/dL (12.0-16.0); IMMATURE GRAN # 0.02 x10^3u/L (0.00-0.03); IMMATURE GRAN % 0.3 % (0.00-0.4); Lymphocyte (Absolute #) 2.53 x10^3/uL (1.0-4.6); Lymphocytes % 38.2 % (24.0-44.0); Mean Cell Volume 91.1 fL (78-100); Mean Corpuscular Hemoglobin 28.5 pg (26-32); Mean Corpuscular Hgb Concent. 31.3 g/dL (32-36); Mean Platelet Volume 9.4 fL (7.5-11.0); Monocyte (Absolute #) 0.33 x10^3/uL (0.0-1.3); Neutrophil % 54.1 % (36.0-66.0); Platelet Count 334 x10^3/uL (150-450); Red Blood Count 4.74 x10^6/uL (4.1-5.4); Red Cell Distribution Width 13.6 % (11.5-14.0); White Blood Count 6.6 x10^3/uL (4.0-10.5)
[2023-03-22 17:32] LABS: Appearance Clear (Clear); Bacteria Rare /HPF (None Seen); Bilirubin Negative (Negative); Blood Trace (Negative); Epithelial Cells Few /HPF (None Seen); Glucose, Urine Negative (Negative); Hyaline Casts NONE SEEN /LPF (0-2); Ketones Negative (Negative); Leukocyte Esterase Moderate (Negative); Nitrite Negative (Negative); Ph 5.5 (4.6-8.0); Protein,Urine Dip Negative (Negative); RBC 0-2 /HPF (0-5); Urobilinogen 0.2 mg/dL (0.2)
[2023-03-22 17:33] LABS: ADD URINE CULTURE? YES (NO)
[2023-03-22 17:45] LABS: ANION GAP 16.2 MEQ/L (5-15); BILIRUBIN,TOTAL 0.4 mg/dL (0.2-1.3); Creatinine 1 0.93 mg/dL (0.52-1.04); EST GLOMERULAR FILTRATION RATE 69.5 ML/MIN; Potassium 4.4 mmol/L (3.5-5.1); Total Protein 7.7 g/dL (6.3-8.2)
--- NOTE | 2023-03-22 18:07 | XRAY ---
CLINICAL HISTORY:Numbness COMPARISON:None TECHNIQUE:Axial non-contrast CT scan of the brain was performed from the skull base to the high parietal region. FINDINGS: The visualized brain parenchyma shows a normal appearance. Alvarez-white matter differentiation is maintained. No midline shifts or deformity. No intracerebral or extra axial hematoma. Normal size and configuration of the cerebral ventricles. Normal CT appearance of the posterior fossa structures namely the cerebellar hemispheres, brainstem, and cerebellar peduncles. The IACs are unremarkable. The cerebello-pontine angles are clear. The pituitary gland, the pineal gland, the optic chiasm is unremarkable. The osseous structures in the skull base are unremarkable. No definite calvarium fractures. The scanned paranasal sinuses are clear. IMPRESSION: No acute cerebral abnormality noted. Unremarkable brain CT. Electronically Signed by: Jacques Del Rosario MD. (03/22/2023 18:02:12 EST)
--- NOTE | 2023-03-22 18:14 | XRAY ---
CLINICAL HISTORY:Neck Pain with Radiculopathy COMPARISON:None TECHNIQUE:Thin axial CT of the cervical spine was performed with sagittal and coronal reconstructions without contrast. FINDINGS: Alignment and osseous structures: Straightening of the cervical curve mounting to reversal consistent with neck muscle spasm. The vertebral bodies are normal in height. No lytic or sclerotic bone lesion. The craniovertebral measures are unremarkable. Intervertebral disc spaces: Normal disc height is noted. Level by Level analysis: C2-C3: No central canal or neuroforaminal stenosis. C3-C4: No central canal or neuroforaminal stenosis. C4-C5: No central canal or neuroforaminal stenosis. C5-C6: No central canal or neuroforaminal stenosis. C6-C7: No central canal or neuroforaminal stenosis. Scanned upper lungs show small right upper lobe cyst 6 mm. IMPRESSION: Straightening of the cervical curve mounting to reversal consistent with neck muscle spasm. Otherwise, unremarkable CT study for the cervical region. MRI remains gold standard for assessment of nerve root impingment if clinically warranted. Electronically Signed by: Jacques Del Rosario MD. (03/22/2023 18:10:53 EST)
[2023-03-22] MEDS ORDERED: Sodium Chloride 0.9% 1000 ML 1,000 ML IV STA (19:03)
[2023-03-22] MEDS ORDERED: ROCEPHIN 1 Gm-D5w 50 ml Bag** 1 G/50 ML IVPB IV STA (19:04)
[2023-03-22] MEDS ORDERED: Sodium Chloride 0.9% 1000 ML 1,000 ML ONE (19:24)
[2023-03-22] MEDS ORDERED: ROCEPHIN 1 Gm-D5w 50 ml Bag** 1 G/50 ML IVPB IV ONE (19:25)
--- NOTE | 2023-03-22 19:53 | XRAY ---
Indication: Dizziness and numbness. Comparison: April 11, 2019 Portable chest is now hyperinflated and clear. Heart not enlarged. Bony thorax intact again with L2/L3 vertebroplasty. No new/acute findings.
[2023-03-22 20:02] VITALS: BP 122/72; PULSE 66; RESP 17
[2023-03-22 20:49] VITALS: O2SAT 98
== END 2023-03-22 20:57 | disposition home or self-care (01) ==
LOC: ED 15:37
DX: N39.0 Urinary tract infection, site not specified (principal); E86.0 Dehydration; R20.2 Paresthesia of skin; R42 Dizziness and giddiness; M54.2 Cervicalgia; R53.1 Weakness; I10 Essential (primary) hypertension; Z72.0 Tobacco use
CPT/HCPCS: 36000; 36415; 70450; 71045; 72125; 80053; 81001; 84484; 85025; 87086; 93005; 96360; 99284; J0696

== ENCOUNTER 2023-10-04 14:05 | Emergency (ER) | payer MEDICARE ==
[2023-10-04 14:09] VITALS: TEMP 97.7; O2SAT 98
--- NOTE | 2023-10-04 14:24 | ERPHSYRPT ---
- History of Present Illness Time Seen by Provider: 10/04/23 14:24 Source: patient, EMS, old records Exam Limitations: no limitations Patient Subjective Stated Complaint: Low right back pain and constipation Triage Nursing Assessment: +++ Physician History: This is a 62-year-old white female patient of Dr. 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 Patient underwent a knee surgery approximately 2 weeks ago and was placed on [place] which she used. She has not had a bowel movement in the last 2 weeks per her report. She has had no nausea vomiting symptoms. Standing and sitting makes the pain worse. Patient denies any trauma to her back. Patient has a history of TIAs, hypertension, COPD, gastroesophageal reflux disease, adrenal insufficiency, osteoporosis and osteoarthritis. Patient states that she has been having to "digs out" hard stool from her rectum. She denies chest pain and she denies shortness of breat h. Allergies/Adverse Reactions: coconut Allergy (Verified 10/04/23 14:14) Home Medications: Albuterol 2.5 mg/3 ml Neb [Proventil 2.5 mg/3 ml Neb] 3 ml IH Q6HPRN PRN 10/04/23 [History] Albuterol Sulfate [Albuterol Sulfate Hfa] 2 puff IH Q6H 10/04/23 [History] Atorvastatin Calcium [Lipitor] 40 mg PO HS 10/04/23 [History] Cyclobenzaprine HCl 5 mg PO TID 10/04/23 [History] Fluticasone Propionate [Flonase NASAL] 1 spray IH DAILY 10/04/23 [History] Hydrocodone/Acetaminophen [Hydrocodone-Acetamin 5-325 mg] 1 tab PO Q6HPRN PRN 10/04/23 [History] Meloxicam 7.5 mg PO DAILY 10/04/23 [History] Metoprolol Succinate 25 mg Xl* [Toprol-Xl 25MG Tablets] 25 mg PO DAILY 10/04/23 [History] Omeprazole 40 mg pe PO DAILY 10/04/23 [History] Umeclidinium Brm/Vilanterol Tr [Anoro Ellipta 62.5-25 Mcg INH] 1 puff IH DAILY 10/04/23 [History] Hx Tetanus, Diphtheria Vaccination/Date Given: No Hx Influenza Vaccination/Date Given: Yes Hx Pneumococcal Vaccination/Date Given: No Immunizations Up to Date: No Travel Risk - International Travel Have you traveled outside of the country in past 3 weeks: No - Emerging Infectious Disease Are you exhibiting symptoms associated with any current EIDs: No - Past Medical History Pertinent Past Medical History: Yes Neurological History: TIA ENT History: No Pertinent History Cardiac History: Hypertension Respiratory History: COPD, Emphysema Endocrine Medical History: Adrenal Insufficiency Musculoskeletal History: Osteoarthritis, Osteoporosis GI Medical History: Hemorrhoids, GERD History: No Pertinent History Psycho-Social History: No Pertinent History Female Reproductive Disorders: Other Other Medical History: TIA "a few years ago" she had R sided numbness. cysts on ovaries - Past Surgical History Past Surgical History: Yes Neuro Surgical History: No Pertinent History Cardiac: No Pertinent History Respiratory: No Pertinent History Gastrointestinal: No Pertinent History Genitourinary: No Pertinent History Musculoskeletal: Orthopedic Surgery Female Surgical History: Other Other Surgical History: rt arm,ovarian cyst removed, back "defuse" L4-5 and compression fracture repair, left knee replacement Significant Family History: no pertinent family hx - Social History Smoking Status: Current every day smoker How long have you smoked: 30+ years Exposure to second hand smoke: Yes Drug Use: none Patient Lives Alone: No - Social Determinants of Health Will the patient participate in the screening: Yes Do you worry about a steady place to live?: No Do you have any problems with any of the following?: No known problems In the past 12 months,have you had to go without utilities?: No Transportation Issues: No Has anyone in your support network made you feel unsafe?: No Have you or anyone in your house had to go without enough: No - Nursing Vital Signs Nursing Vital Signs: Initial Vital Signs Temperature 97.7 F 10/04/23 14:05 Pulse Rate 80 10/04/23 14:05 Respiratory Rate 20 10/04/23 14:05 Blood Pressure 141/72 10/04/23 14:05 O2 Sat by Pulse Oximetry 98 10/04/23 14:05 Pain Scale Pain Intensity [Right Lower 10 Back] Pain Intensity 10 - Physical Exam SpO2: 98 Ordered Tests: Active Orders 24 hr Category Date Time Status Enema STAT Care 10/04/23 14:54 Active Enema STAT Care 10/04/23 16:25 Active KUB Stat Exams 10/04/23 14:28 Taken - Progress Progress: improved, re-examined Progress Note: 10/04/23 14:41 My medical decision making and the assignment of low complexity to this patient's initial workup is based on review of the patient's past medical history, review the patient's medication list, review of patient drug allergy list, history present illness and physical findings on examination. We will first order KUB to evaluate for the presence of rectosigmoid stool. If this is significantly present, we will provide the patient with soapsuds enema. I do not feel it absolutely necessary at the outset to perform a CT scan of the abdomen pelvis and a lumbar spine reconstruction. She had not have any fall or trauma. She was on narcotics during the last 2 weeks. She also stated that she had very hard stool present in the rectal vault on her own/self examination and attempts to dislodge the stool bolus. 10/04/23 14:53 I interpreted the preliminary report on the KUB. There is significant amount of stool throughout her colon and rectal region. The greatest concentration appears to be in her cecum and right colon. There is no obvious free air and no significant small bowel dilation. No air-fluid levels appreciated. 10/04/23 16:27 Patient had a small response to the soapsuds enema. Patient states that she just wants to go home with a stool softener. Will provide her with a fleets enema to take home which she will use at 7 PM tonight. Will also give her docusate sodium 100 mg orally now and I will send a prescription to her pharmacy. Counseled pt/family regarding: diagnosis, rad results Medical Desision Making - Diagnostic Testing Diagnostic test were ordered, analyzed, and reviewed by me: Yes Radiological Interpretation: Interpreted by me - Risk of complications Minimal Risk: Minimal risk of morbidity - Departure Departure Disposition: Home Clinical Impression: Constipation due to opioid therapy Condition: Stable Critical Care Time: No Referrals: MELE MITCHELL [Primary Care Provider] - Follow up/PCP as directed Additional Instructions: Clear liquid diet until you are having normal bowel movements. Take your stool softener (docusate) as prescribed. Use MiraLAX [id number]-[id number] product for the next 3 mornings. Follow the instructions on the [id number] product. Give yourself the fleets enema at 7 PM tonight as instructed. May use milk of magnesia as instructed on the [id number] product. Use this for 3 days as well. Call your primary care provider tomorrow, 10/05/2023, to make arrangements to be seen in the next 3 to 5 days. Stop your narcotics. Use plain Tylenol for pain relief. Increase your activity. Prescriptions: Docusate Sodium 100 mg [Docusate Sodium 100 MG] 100 mg PO BID #10 cap
[2023-10-04 14:28] VITALS: RESP 16
[2023-10-04 16:40] VITALS: BP 145/62; PULSE 70
[2023-10-04] MEDS: Docusate Sodium 100 MG PO ONE (16:46)
--- NOTE | 2023-10-04 20:37 | XRAY ---
Indication: Constipation. Comparison: None KUB nonacute and nonobstructed with mild diffuse colonic fecal debris. Solid organs unremarkable. Osseous structures intact with L2/L3 vertebroplasty and L4-L5 fusion hardware.
== END 2023-10-04 16:48 | disposition home or self-care (01) ==
LOC: ED 14:05
DX: K59.03 Drug induced constipation (principal); T40.2X5A Adverse effect of other opioids, initial encounter; M54.50 Low back pain, unspecified; I10 Essential (primary) hypertension; Z79.891 Long term (current) use of opiate analgesic; Z79.899 Other long term (current) drug therapy; Z72.0 Tobacco use
CPT/HCPCS: 74018; 99283; A9270-GY

== ENCOUNTER 2023-10-06 16:43 | Emergency (ER) | payer MEDICARE, OTHER ==
[2023-10-06 16:47] VITALS: RESP 18; TEMP 97
[2023-10-06 17:57] VITALS: BP 119/67; PULSE 88
[2023-10-06 17:58] VITALS: O2SAT 97
--- NOTE | 2023-10-06 17:58 | ERPHSYRPT ---
- History of Present Illness Time Seen by Provider: 10/06/23 16:50 Source: patient Exam Limitations: no limitations Patient Subjective Stated Complaint: pt here for constipation she was here 2 days ago for samething, she has tried stool softners,laxative, with no relief, h as recent knee surgery Triage Nursing Assessment: pt alert, moaning out at times, arrived per ems, resp easy. skin w/d/p. abd slightly distended, soft, BS heard hypo active. moves all ext well,no edema noted Physician History: 62-year-old female presents to our ED for evaluation of constipation. Patient was in our ED 2 days ago for the same. Patient did not follow the laxative instructions as outlined at her last visit. Patient had that she is experiencing pain to her right hip. No falls no trauma. Pain described as an ache that is localized. No radiation. Pain worse with movement and weightbearing. Patient requesting imaging study. No associated symptomology. Patient otherwise feels well. She voices no other complaints or concerns at this time. Portions of this note were created with voice recognition technology. There may be grammatical, spelling, punctuation or sound alike errors Timing/Duration: day(s) (3 to 4 days) Severity: moderate Modifying Factors: Improves With: other (Right hip pain worse with weightbearing movement and palpation) Associated Symptoms: denies symptoms Allergies/Adverse Reactions: coconut Allergy (Verified 10/06/23 16:45) Home Medications: Albuterol 2.5 mg/3 ml Neb [Proventil 2.5 mg/3 ml Neb] 3 ml IH Q6HPRN PRN 10/04/23 [History] Albuterol Sulfate [Albuterol Sulfate Hfa] 2 puff IH Q6H 10/04/23 [History] Atorvastatin Calcium [Lipitor] 40 mg PO HS 10/04/23 [History] Cyclobenzaprine HCl 5 mg PO TID 10/04/23 [History] Fluticasone Propionate [Flonase NASAL] 1 spray IH DAILY 10/04/23 [History] Hydrocodone/Acetaminophen [Hydrocodone-Acetamin 5-325 mg] 1 tab PO Q6HPRN PRN 10/04/23 [History] Meloxicam 7.5 mg PO DAILY 10/04/23 [History] Metoprolol Succinate 25 mg Xl* [Toprol-Xl 25MG Tablets] 25 mg PO DAILY 09/06 [History] Omeprazole 40 mg pe PO DAILY 10/04/23 [History] Umeclidinium Brm/Vilanterol Tr [Anoro Ellipta 62.5-25 Mcg INH] 1 puff IH DAILY 10/04/23 [History] Hx Tetanus, Diphtheria Vaccination/Date Given: No Hx Influenza Vaccination/Date Given: Yes Hx Pneumococcal Vaccination/Date Given: No Immunizations Up to Date: Yes Travel Risk - International Travel Have you traveled outside of the country in past 3 weeks: No - Emerging Infectious Disease Are you exhibiting symptoms associated with any current EIDs: Yes Symptoms: Abdominal Pain - Review of Systems Constitutional: No Symptoms, No Fever, No Chills Eyes: No Symptoms Ears, Nose, & Throat: No Symptoms Respiratory: No Symptoms, No Cough, No Dyspnea Cardiac: No Symptoms, No Chest Pain, No Edema, No Syncope Abdominal/Gastrointestinal: No Symptoms, No Abdominal Pain, No Nausea, No Vomiting, No Diarrhea Genitourinary Symptoms: No Symptoms, No Dysuria Musculoskeletal: No Symptoms, No Back Pain, No Neck Pain Skin: No Symptoms, No Rash Neurological: No Symptoms, No Dizziness, No Focal Weakness, No Sensory Changes Psychological: No Symptoms Endocrine: No Symptoms Hematologic/Lymphatic: No Symptoms Immunological/Allergic: No Symptoms All Other Systems: Reviewed and Negative - Past Medical History Pertinent Past Medical History: Yes Neurological History: TIA ENT History: No Pertinent History Cardiac History: Hypertension Respiratory History: COPD, Emphysema Endocrine Medical History: Adrenal Insufficiency Musculoskeletal History: Osteoarthritis, Osteoporosis GI Medical History: Hemorrhoids, GERD History: No Pertinent History Psycho-Social History: No Pertinent History Female Reproductive Disorders: Other Other Medical History: TIA "a few years ago" she had R sided numbness. cysts on ovaries - Past Surgical History Past Surgical History: Yes Neuro Surgical History: No Pertinent History Cardiac: No Pertinent History Respiratory: No Pertinent History Gastrointestinal: No Pertinent History Genitourinary: No Pertinent History Musculoskeletal: Orthopedic Surgery Female Surgical History: Other Other Surgical History: rt arm,ovarian cyst removed, back "defuse" L4-5 and compression fracture repair, left knee replacement Significant Family History: no pertinent family hx - Social History Smoking Status: Never smoker How long have you smoked: 30+ years Exposure to second hand smoke: No Drug Use: none Patient Lives Alone: No - Social Determinants of Health Will the patient participate in the screening: Yes Do you worry about a steady place to live?: No Do you have any problems with any of the following?: No known problems In the past 12 months,have you had to go without utilities?: No Transportation Issues: No Has anyone in your support network made you feel unsafe?: No Have you or anyone in your house had to go without enough: No - Nursing Vital Signs Nursing Vital Signs: Initial Vital Signs Temperature 97 F 10/06/23 16:46 Pulse Rate 90 10/06/23 16:46 Respiratory Rate 18 10/06/23 16:46 Blood Pressure 130/70 10/06/23 16:46 O2 Sat by Pulse Oximetry 97 10/06/23 16:46 Pain Scale Pain Intensity 6 - Physical Exam General Appearance: no apparent distress, alert Eye Exam: PERRL/EOMI, eyes nml inspection Ears, Nose, Throat Exam: normal ENT inspection, moist mucous membranes Neck Exam: normal inspection, non-tender, supple, full range of motion Respiratory Exam: normal breath sounds, lungs clear, airway intact, No respiratory distress Cardiovascular Exam: regular rate/rhythm, normal heart sounds, normal peripheral pulses Gastrointestinal/Abdomen Exam: soft, normal bowel sounds, No tenderness, No mass Back Exam: normal inspection, normal range of motion, No CVA tenderness, No vertebral tenderness Extremity Exam: normal inspection, normal range of motion, pelvis stable, other (Tenderness to palpation lateral aspect right hip. Patient concern for possible fracture although no falls. No trauma.), No pedal edema, No swelling Neurologic Exam: alert, oriented x 3, cooperative, normal mood/affect, sensation nml, No motor deficits Skin Exam: normal color, warm, dry, No rash Lymphatic Exam: No adenopathy SpO2 Interpretation: normal SpO2: 97 O2 Delivery: Room Air - Course Nursing assessment & vital signs reviewed: Yes - CT Exams Lower Extremity CT Interpretation: Tele-radiologist Report (Again normal right hip compared to 01/06/2023) Ordered Tests: Active Orders 24 hr Category Date Time Status IV Insertion STAT Care 10/06/23 17:51 Active LOWER EXTREMITY WO CONTRAST [CT] Stat Exams 10/06/23 17:32 Taken Medication Summary Discontinued Medications Generic Name Dose Route Start Last Admin Trade Name Freq PRN Reason Stop Dose Admin Acetaminophen 975 mg 10/06/23 18:06 10/06/23 18:10 Acetaminophen 325 Mg Tablet PO 10/06/23 18:07 975 mg STAT ONE Administration Acetaminophen Confirm 10/06/23 18:09 Acetaminophen 325 Mg Tablet Administered 10/06/23 18:10 Dose 975 mg .ROUTE .STK-MED ONE - Progress Progress: improved Progress Note: 62-year-old female presents to our ED for evaluation of constipation. operations staff specialist security assisted patient with a bowel movement via a enema. Patient had a bowel movement and felt much better. Patient also complained of right hip pain requested an imaging study. CT right hip completed per her request. No fractures or dislocations observed. Patient received Tylenol for pain control. Patient feels better now states she is ready for discharge. No indication for further workup. Will discharge home. Patient agrees to follow-up with her primary care doctor within 48 hours for reevaluation. Portions of this note were created with voice recognition technology. There may be grammatical, spelling, punctuation or sound alike errors Complexity problem addressed is moderate acute complicated. No critical care time. Complex of data reviewed and analyzed is moderate. Test ordered test reviewed results analyzed and correlated clinically with history and physical exam. Vital stable. Time spent to discharge patient approximately 20 minutes. Plan of care established for shared decision making. No social determinants of health present impede follow-up. Patient referred to orthopedic clinic for right hip pain Portions of this note were created with voice recognition technology. There may be grammatical, spelling, punctuation or sound alike errors 10/06/23 18:45 10/06/23 18:47 Counseled pt/family regarding: diagnosis, need for follow-up, rad results - Departure Departure Disposition: Home Clinical Impression: Constipation, Hip pain Condition: Stable Critical Care Time: No Referrals: MELE MITCHELL [Primary Care Provider] - Follow up/PCP as directed Additional Instructions: Discharge/Care Plan TUSHARMICHAEL REED was seen on 10/06/23 in the Emergency Room. The patient was counseled regarding Diagnosis,Lab results, Imaging studies, need for follow up and when to return to the Emergency Room. Prescriptions given: Discharge Note I have spoken with the patient and/or caregivers. I have explained the patient's condition, diagnosis and treatment plan based on the information available to me at this time. I have answered the patient's and/or caregiver's questions and addressed any concerns. The patient and/or caregivers have as good understanding of the patient's diagnosis, condition and treatment plan as can be expected at this point. The vital signs have been stable. The patient's condition is stable and appropriate for discharge from the emergency department. The patient will pursue further outpatient evaluation with the primary care physician or other designated or consulting physician as outlined in the discharge instructions. The patient and/or caregivers are agreeable to this plan of care and follow-up instructions have been explained in detail. The patient and/or caregivers have received these instruction. The patient/and or caregivers are aware that any significant change in condition or worsening of symptoms should prompt an immediate return to this or the closest emergency department or call 911. Outpatient Orders: Ortho Referral Time Frame: 1 Day, Facility: [facility]. Hosp, Location: [facility]
[2023-10-06] MEDS ORDERED: TYLENOL 325 MG ONE (18:09)
[2023-10-06] MEDS: TYLENOL 325 MG PO ONE (18:10)
--- NOTE | 2023-10-07 08:39 | XRAY ---
Indication: Pain. No known injury. Multiple contiguous axial images obtained through the right hip. Sagittal and coronal reformatted images obtained. Comparison: CT abdomen/pelvis January 06, 2023. Right femur neck and ischial tuberosity demonstrates stable tiny well-circumscribed sclerotic lesions, probable bone islands. No acute fracture, dislocation, or suspicious bony lesions. Again minimal scattered arteriosclerotic calcifications and tiny right gluteal calcified injection granuloma. No suspicious solid cystic soft tissue mass or pathologic lymphadenopathy. Impression: Again tiny bone islands and minimal arteriosclerotic disease. Remaining CT right hip normal.
== END 2023-10-06 18:59 | disposition home or self-care (01) ==
LOC: ED 16:43
DX: K59.00 Constipation, unspecified (principal); M25.551 Pain in right hip; I10 Essential (primary) hypertension; Z79.891 Long term (current) use of opiate analgesic; Z79.899 Other long term (current) drug therapy
CPT/HCPCS: 36000; 73700; 99283; A9270-GY

== ENCOUNTER 2024-05-15 20:58 | Observation (INO) | payer MEDICARE, OTHER ==
[2024-05-15 21:32] LABS: Hematocrit 43.6 % (34.1-44.9); Mean Cell Volume 85.2 fL (79.4-94.8); Mean Corpuscular Hemoglobin 27.3 pg (25.6-32.2); Mean Corpuscular Hgb Concent. 32.1 g/dL (32.2-35.5); Mean Platelet Volume 8.7 fL (9.4-12.3); Platelet Count 425 x10^3/uL (182-369); Red Blood Count 5.12 x10^6/uL (3.93-5.22); White Blood Count 11.3 x10^3/uL (3.98-10.04)
[2024-05-15 21:44] LABS: ALBUMIN 4.1 g/dL (3.5-5.0); ANION GAP 10.3 MEQ/L (5-15); BILIRUBIN,TOTAL 0.4 mg/dL (0.2-1.3); Calcium 8.6 mg/dL (8.4-10.2); Creatinine 1 1.06 mg/dL (0.52-1.04); Direct Bilirubin 0.3 mg/dL (0.0-0.4); Potassium 4.1 mmol/L (3.5-5.1); Total Protein 7.4 g/dL (6.3-8.2)
[2024-05-15 21:46] LABS: INR 0.89 (0.8-3.0); PROTIME 9.8 SECONDS (9.4-12.5); PTT 22.6 SECONDS (25.1-36.5)
--- NOTE | 2024-05-15 21:54 | XRAY ---
CLINICAL HISTORY: left arm weakness r/o cva COMPARISON: 03/22/2023 TECHNIQUE: Axial non-contrast CT scan of the brain was performed from the skull base to the high parietal region. One of the following dose reduction techniques were utilized for this exam: Automated exposure control, adjustment of the mA and/or kV according to patient size, use of iterative reconstruction. FINDINGS: Brain Parenchyma: Suspicious small focal hypodense area measuring 4 mm in the subcortical white matter of right frontal region, better appreciated on axial image 53/71, concerning for acute infarct. Rest of the brain parenchyma appears unremarkable. Ventricular System: Ventricles are normal in size and configuration. No evidence of hydrocephalus or ventricular enlargement. Subarachnoid Spaces: Normal sulci and cisterns. No evidence of subarachnoid hemorrhage or extra-axial fluid collections. Cerebellum and Brainstem: Normal size and signal. No masses, lesions, or areas of abnormal signal. Orbits: Normal appearance of the globes, optic nerves, and extraocular muscles. No evidence of orbital masses or abnormal signal. Sinuses: Clear paranasal sinuses. No evidence of sinusitis or mucosal thickening. Mastoid Air Cells: Clear mastoid air cells. No evidence of mastoiditis. Skull: Normal skull morphology. IMPRESSION: 1. Suspicious small focal hypodense area measuring 4 mm in the subcortical white matter of right frontal region, better appreciated on axial image 53/71, concerning for acute infarct. 2. Recommended MR imaging with stroke protocol for further evaluation 3. This appears to be a new interval finding. Electronically Signed by: Jacques Del Rosario MD. (05/15/2024 21:50:39 EST)
--- NOTE | 2024-05-15 22:04 | ERPHSYRPT ---
- History of Present Illness Source: patient Exam Limitations: no limitations Patient Subjective Stated Complaint: c/o cough for 3 weeks Triage Nursing Assessment: patient brought into ED by EMS with c/o of shortness of breath and cough for 3 weeks. patient stated she went to [facility] a week ago anf was tested for Flu/Covid and it came back negative. patient has a non- productive cough, coarse, crackles heard upon expiration throughout, states she has chest pain due to coughing. 97% on RA, slightly hypertensive, skin w/n/d, afebrile, ataxia in left arm, patient states that symptoms started a couple days ago. Physician History: Patient has some ataxia in her left arm. She had a CVA in the past and she had similar symptoms this was about 4 years ago. That is basically her only symptom is some ataxia. She does not have any ataxia in her lower extremities. She is able to ambulate without difficulty. She does not have any other focal neurological deficits except she has some tingling and some numbness in that left extremity.Of note she has had cough and congestion for a few days but it appears to be something viral. She does have COPD. She is moving air without much difficulty. Nothing really makes his symptoms better or worse. Her symptoms started about 4 days ago. She says that the ataxia got worse today so she decided to come in. She is on aspirin and Plavix already. Allergies/Adverse Reactions: coconut Allergy (Verified 05/15/24 21:27) Home Medications: Albuterol 2.5 mg/3 ml Neb [Proventil 2.5 mg/3 ml Neb] 3 ml IH Q6HPRN PRN 10/04/23 [History] Albuterol Sulfate [Albuterol Sulfate Hfa] 2 puff IH Q6H 10/04/23 [History] Atorvastatin Calcium [Lipitor] 40 mg PO HS 10/04/23 [History] Cyclobenzaprine HCl 5 mg PO TID 10/04/23 [History] Fluticasone Propionate [Flonase NASAL] 1 spray IH DAILY 10/04/23 [History] Hydrocodone/Acetaminophen [Hydrocodone-Acetamin 5-325 mg] 1 tab PO Q6HPRN PRN 10/04/23 [History] Meloxicam 7.5 mg PO DAILY 10/04/23 [History] Metoprolol Succinate 25 mg Xl* [Toprol-Xl 25MG Tablets] 25 mg PO DAILY 10/04/23 [History] Omeprazole 40 mg pe PO DAILY 10/04/23 [History] Umeclidinium Brm/Vilanterol Tr [Anoro Ellipta 62.5-25 Mcg INH] 1 puff IH DAILY 10/04/23 [History] Aspirin EC 325 mg [Ecotrin 325 MG] 325 mg PO DAILY 05/15/24 [History] Hx Tetanus, Diphtheria Vaccination/Date Given: No Hx Influenza Vaccination/Date Given: Yes Hx Pneumococcal Vaccination/Date Given: No Travel Risk - International Travel Have you traveled outside of the country in past 3 weeks: No - Emerging Infectious Disease Are you exhibiting symptoms associated with any current EIDs: No Symptoms: Abdominal Pain - Review of Systems Constitutional: No Symptoms Eyes: No Symptoms Ears, Nose, & Throat: No Symptoms Respiratory: Cough, No Dyspnea, No Wheezing Cardiac: No Symptoms, No Chest Pain, No Edema, No Palpitations Abdominal/Gastrointestinal: No Symptoms Genitourinary Symptoms: No Symptoms Skin: No Symptoms Neurological: No Symptoms All Other Systems: Reviewed and Negative - Past Medical History Pertinent Past Medical History: Yes Neurological History: TIA ENT History: Cataracts Cardiac History: High Cholesterol Respiratory History: COPD, Emphysema Endocrine Medical History: No Pertinent History Musculoskeletal History: Muscular Dystrophy GI Medical History: Hemorrhoids, GERD History: No Pertinent History Psycho-Social History: No Pertinent History Female Reproductive Disorders: Other Other Medical History: PSH: BACK SURGERY (DR JUDGE), OVARIAN CYST REMOVAL, R ARM SURGERY ORIF, DERMALTOLOGIC SURGERIES, Left knee surgery - Past Surgical History Past Surgical History: Yes Neuro Surgical History: No Pertinent History Cardiac: No Pertinent History Respiratory: No Pertinent History Gastrointestinal: No Pertinent History Genitourinary: No Pertinent History Musculoskeletal: Orthopedic Surgery Female Surgical History: Other Other Surgical History: rt arm,ovarian cyst removed, back "defuse" L4-5 and compression fracture repair, left knee replacement Significant Family History: no pertinent family hx - Social History Smoking Status: Current some day smoker How long have you smoked: 30+ years Exposure to second hand smoke: No Drug Use: none Patient Lives Alone: No - Social Determinants of Health Will the patient participate in the screening: Yes Do you worry about a steady place to live?: No Do you have any problems with any of the following?: No known problems In the past 12 months,have you had to go without utilities?: No Transportation Issues: No Has anyone in your support network made you feel unsafe?: No Have you or anyone in your house had to go without enough: No Comment: patient has to move and is worried about finding a place. - Nursing Vital Signs Nursing Vital Signs: Initial Vital Signs Temperature 97.4 F 05/15/24 21:01 Pulse Rate 85 05/15/24 21:01 Respiratory Rate 14 05/15/24 21:01 Blood Pressure 152/76 05/15/24 21:01 O2 Sat by Pulse Oximetry 100 05/15/24 21:01 Pain Scale Pain Intensity 0 - [place] Coma Scale Best Eye Response ([place]): (4) open spontaneously Best Verbal Response ([place]): (5) oriented Best Motor Response ([place]): (6) obeys commands [place] Total: 15 - Physical Exam General Appearance: no apparent distress Eye Exam: bilateral eye: normal inspection, PERRL, EOMI Ears, Nose, Throat Exam: normal ENT inspection Respiratory: other (Coarse breath sounds bilaterally.) Cardiovascular: regular rate/rhythm, normal heart sounds Gastrointestinal: soft, normal bowel sounds, No tenderness 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, 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 Exam: normal hearing, normal speech, PERRL, No abnormal eye position Coordination/Gait: ABN nose to finger (L) Motor/Sensory: pronator drift (L), weak motor strength RUE Skin Exam: normal color, warm SpO2: 100 - Course EKG Interpreted by Me: RATE, Sinus Rhythm, NORMAL QRS, NORMAL ST-T Ordered Tests: Active Orders 24 hr Category Date Time Status IV Insertion STAT Care 05/15/24 22:43 Active NPO Diet 05/15/24 21:18 Active CHEST 1 VIEW (PORTABLE) Stat Exams 05/15/24 21:[address] ANGIOGRAPHY NECK [CT] Stat Exams 05/15/24 22:19 Completed CTA HEAD W AND/OR WO CONTRAST [CT] Stat Exams 05/15/24 22:19 Completed HEAD WITHOUT CONTRAST [CT] Stat Exams 05/15/24 21:16 Completed BMP/HFII Stat Lab 05/15/24 21:20 Completed CBC Stat Lab 05/15/24 21:20 Completed PROTIME WITH INR Stat Lab 05/15/24 21:20 Completed PTT Stat Lab 05/15/24 21:20 Completed EKG STAT RT 05/15/24 21:18 Active Medication Summary Generic Name Dose Route Start Last Admin Trade Name Dariusz PRN Reason Stop Dose Admin Aspirin 81 mg 05/16/24 10:00 Aspirin 81 Mg Tab.Chew PO 06/15/24 09:59 QAM JUSTIN Discontinued Medications Generic Name Dose Route Start Last Admin Trade Name Dariusz PRN Reason Stop Dose Admin Aspirin 81 mg 05/15/24 22:21 05/15/24 22:29 Aspirin 81 Mg Tab.Chew PO 05/15/24 22:22 81 mg STAT ONE Administration Clopidogrel Bisulfate 75 mg 05/16/24 10:00 Clopidogrel Bisulfate 75 Mg Tablet PO 06/15/24 09:59 DAILY JUSTIN Clopidogrel Bisulfate 75 mg 05/15/24 22:28 05/15/24 22:29 Clopidogrel Bisulfate 75 Mg Tablet PO 05/15/24 22:29 75 mg DAILY STA Administration Lab/Rad Data: Laboratory Result Diagrams 05/15/24 21:20 05/15/24 21:20 Laboratory Results 05/15/24 05/15/24 05/15/24 Range/Units 21:20 21:20 21:20 WBC (3.98-10.04) x10^3/uL RBC (3.93-5.22) x10^6/uL Hgb (11.2-15.7) g/dL Hct (34.1-44.9) % MCV (79.4-94.8) fL MCH (25.6-32.2) pg MCHC (32.2-35.5) g/dL RDW (11.7-14.4) % Plt Count (182-369) x10^3/uL MPV (9.4-12.3) fL PT 9.8 (9.4-12.5) SECONDS INR 0.89 (0.8-3.0) APTT 22.6 L (25.1-36.5) SECONDS Sodium 140 (135-145) mmol/L Potassium 4.1 (3.5-5.1) mmol/L Chloride 104 (98-107) mmol/L Carbon Dioxide 30 (22-30) mmol/L Anion Gap 10.3 (5-15) MEQ/L BUN 22 H (7-17) mg/dL Creatinine 1.06 H (0.52-1.04) mg/dL Estimated GFR 59.0 ML/MIN Glucose 90 (74-106) mg/dL Calcium 8.6 (8.4-10.2) mg/dL Total Bilirubin 0.40 (0.2-1.3) mg/dL Direct Bilirubin 0.3 (0.0-0.4) mg/dL AST 29 (14-36) U/L ALT 18 (0-35) U/L Alkaline Phosphatase 78 (38-126) U/L Serum Total Protein 7.4 (6.3-8.2) g/dL Albumin 4.1 (3.5-5.0) g/dL Influenza Type A Ag NEGATIVE (NEGATIVE) Influenza Type B Ag NEGATIVE (NEGATIVE) RSV (PCR) NEGATIVE (NEGATIVE) SARS-CoV-2 (PCR) NEGATIVE (NEGATIVE) 05/15/24 Range/Units 21:20 WBC 11.3 H (3.98-10.04) x10^3/uL RBC 5.12 (3.93-5.22) x10^6/uL Hgb 14.0 (11.2-15.7) g/dL Hct 43.6 (34.1-44.9) % MCV 85.2 (79.4-94.8) fL MCH 27.3 (25.6-32.2) pg MCHC 32.1 L (32.2-35.5) g/dL RDW 14.0 (11.7-14.4) % Plt Count 425 H (182-369) x10^3/uL MPV 8.7 L (9.4-12.3) fL PT (9.4-12.5) SECONDS INR (0.8-3.0) APTT (25.1-36.5) SECONDS Sodium (135-145) mmol/L Potassium (3.5-5.1) mmol/L Chloride (98-107) mmol/L Carbon Dioxide (22-30) mmol/L Anion Gap (5-15) MEQ/L BUN (7-17) mg/dL Creatinine (0.52-1.04) mg/dL Estimated GFR ML/MIN Glucose (74-106) mg/dL Calcium (8.4-10.2) mg/dL Total Bilirubin (0.2-1.3) mg/dL Direct Bilirubin (0.0-0.4) mg/dL AST (14-36) U/L ALT (0-35) U/L Alkaline Phosphatase (38-126) U/L Serum Total Protein (6.3-8.2) g/dL Albumin (3.5-5.0) g/dL Influenza Type A Ag (NEGATIVE) Influenza Type B Ag (NEGATIVE) RSV (PCR) (NEGATIVE) SARS-CoV-2 (PCR) (NEGATIVE) - Progress Progress: unchanged Progress Note: Patient was stable throughout stay. We got a CT of her head initially. The radiologist called me back and said that there was some acute findings on it. In the meantime teleneuro had been and evaluating the patient. He is uncertain if this is a acute event or not he suggested an MRI to confirm or deny. He also suggested a CTA of the carotids and the head as well. I will get that ordered. The rest of her workup was unremarkable.He suggest we put her on aspirin and Plavix and her statin.After the CTAs are back I will call the hospitalist. I spoke with Dr. Gomez. He agreed to put the patient in for observation. 05/15/24 22:09 05/15/24 22:13 05/16/24 00:09 Medical Desision Making - Discussion of managment Care discussed with:: hospitalist (Waldemar) Reviewed:: Test results, Need for additional workup Agreed on:: decision to admit Will see patient: in hospital - Risk of complications Low Risk: Low risk of morbidity from additional dx testing or treatment - Departure Departure Disposition: Observation Clinical Impression: CVA (cerebral vascular accident) Condition: Stable Critical Care Time: No Referrals: MELE MITCHELL [Primary Care Provider] - Follow up/PCP as directed
[2024-05-15 22:09] LABS: INFLUENZA A NEGATIVE (NEGATIVE); INFLUENZA B NEGATIVE (NEGATIVE); RESPIRATORY SYNCTIAL VIRUS NEGATIVE (NEGATIVE); SARS-CoV-2 Xpert Express NEGATIVE (NEGATIVE)
[2024-05-15] MEDS ORDERED: BABY ASPIRIN 81 MG CHEW ONE (22:24)
[2024-05-15] MEDS: PLAVIX Tablet PO STA (22:29)
[2024-05-15] MEDS: BABY ASPIRIN 81 MG CHEW PO ONE (22:29)
--- NOTE | 2024-05-15 23:57 | XRAY ---
CLINICAL HISTORY: cva COMPARISON: None. TECHNIQUE: Contrast enhanced thin slice CT angiography scan of the cerebral vessels was performed with intravenous contrast. Angiographic images were processed, 3D MIP images were acquired for interpretation. Contiguous axial images were obtained. Reformatted coronal and sagittal images were also reviewed. If IV contrast material had not been administered, the likelihood of detecting abnormalities relevant to the patient's condition would have been substantially decreased. CT scan was performed according to ALARA (as low as reasonably achievable). FINDINGS: Bilateral internal carotid arteries show normal course, calibre and opacification in the canalicular and cavernous part. Their division into the anterior cerebral artery and middle cerebral artery is defined. A1, A2 segments are normal on both the sides. M1, M2 segments are normal on both the sides. Right vertebral artery is normal in course and caliber. Left vertebral artery is normal in course and caliber. Basilar artery shows normal course, caliber and opacification. Bilateral P1 and P2 segments are normal. Visualized venous structures show normal opacification. No evidence of intracranial aneurysm or AV malformation is seen. IMPRESSION: 1. No evidence of stenosis or aneurysm. No evidence of dissection. Electronically Signed by: Praveen Reid MD. (05/15/2024 23:53:30 EST)
--- NOTE | 2024-05-16 00:04 | XRAY ---
CLINICAL HISTORY: cva COMPARISON: None. TECHNIQUE: Contrast enhanced thin slice CT angiography scan of the carotid vessels was performed with intravenous contrast. Angiographic images were processed, 3D MIP images were acquired for interpretation. Contiguous axial images were obtained. Reformatted coronal and sagittal images were also reviewed. If IV contrast material had not been administered, the likelihood of detecting abnormalities relevant to the patient's condition would have been substantially decreased. CT scan was performed according to ALARA (as low as reasonably achievable). FINDINGS: Included great vessels of the aortic arch are grossly unremarkable. Eccentric thrombus/ no sclerotic atheromatous plaque is noted involving proximal portion of the right common carotid artery extending over a length of approximately 4 cm. 30%-50% luminal stenosis is noted at this level. Distal perfusion is well seen. Similar non-sclerotic plaque/thrombus is also noted involving proximal portion of left common carotid artery causing mild (10%-20% luminal stenosis). Few calcified atheromatous plaques are noted involving bilateral carotid bulbs causing insignificant luminal stenosis. Vertebral arteries are well opacified. Jugular veins are well opacified. Included lung apices are grossly unremarkable. Thyroid gland appears unremarkable. IMPRESSION: 1. Eccentric thrombus / non-sclerotic atheromatous plaque is noted involving proximal portion of the right common carotid artery extending over a length of approximately 4 cm. 30%-50% luminal stenosis is noted at this level. Distal perfusion is well seen. 2. Similar non-sclerotic plaque/thrombus is also noted involving proximal portion of left common carotid artery causing mild (10%-20% luminal stenosis). Electronically Signed by: Praveen Reid MD. (05/15/2024 23:58:47 EST)
[2024-05-16] MEDS ORDERED: NORCO 5/325 MG PO PRN (02:03)
--- NOTE | 2024-05-16 02:25 | PCM.HP ---
History of Present Illness - Chief Complaint Chief Complaint: left arm weakness Date: 05/16/24 History of Present Illness: 63-year-old woman with a history of TIA, COPD, tobacco use, and GERD, who presents with left arm weakness and tingling. Patient noted onset 3 weeks ago of upper respiratory infection symptoms including cough, congestion, sore throat. She obtained steroids from an urgent care clinic about a week ago, without any significant relief of symptoms, completing a course about 2 days prior to admission. At about that time, she developed the onset of sudden, complete weakness of the left arm, associated with some tingling/numbness. It has been constant for the last 2 days, with some slow improvement. She is now able to move her left arm somewhat, although it still feels weaker than her right arm. She does not see any reason why she came to the hospital today instead of 2 days earlier when the arm was first week. Manage is complaining that she still has her cough and congestion. She said that she had 2 prior TIAs, the most recent 4 years ago, but also had similar symptoms with complete left arm weakness. She is a current smoker, at half pack per day. No family history of premature CAD or CVA. - Review of Systems All Other Systems: Reviewed and Negative Medications & Allergies Home Medications: Home Medication List Albuterol 2.5 mg/3 ml Neb [Proventil 2.5 mg/3 ml Neb] 3 ml IH Q6HPRN PRN 10/04/23 [History Confirmed 05/15/24] Albuterol Sulfate [Albuterol Sulfate Hfa] 2 puff IH Q6H 10/04/23 [History Confirmed 05/15/24] Atorvastatin Calcium [Lipitor] 40 mg PO HS 10/04/23 [History Confirmed 05/15/24] Cyclobenzaprine HCl 5 mg PO TID 10/04/23 [History Confirmed 05/15/24] Fluticasone Propionate [Flonase NASAL] 1 spray IH DAILY 10/04/23 [History Confirmed 05/15/24] Hydrocodone/Acetaminophen [Hydrocodone-Acetamin 5-325 mg] 1 tab PO Q6HPRN PRN 10/04/23 [History Confirmed 05/15/24] Meloxicam 7.5 mg PO DAILY 10/04/23 [History Confirmed 05/15/24] Metoprolol Succinate 25 mg Xl* [Toprol-Xl 25MG Tablets] 25 mg PO DAILY 10/04/23 [History Confirmed 05/15/24] Omeprazole 40 mg pe PO DAILY 10/04/23 [History Confirmed 05/15/24] Umeclidinium Brm/Vilanterol Tr [Anoro Ellipta 62.5-25 Mcg INH] 1 puff IH DAILY 10/04/23 [History Confirmed 05/15/24] Aspirin EC 325 mg [Ecotrin 325 MG] 325 mg PO DAILY 05/15/24 [History Confirmed 05/15/24] Allergies/Adverse Reactions: Allergies Allergy/AdvReac Type Severity Reaction Status Date / Time coconut Allergy Verified 05/15/24 21:27 - Past Medical History Past Medical History: Yes Neurological History: TIA ENT History: Cataracts Cardiac History: High Cholesterol Respiratory History: COPD, Emphysema Endocrine Medical History: No Pertinent History Musculoskelatal History: Muscular Dystrophy GI Medical History: Hemorrhoids, GERD History: No Pertinent History Pyscho-Social History: No Pertinent History Reproductive Disorders: Other Comment: PSH: BACK SURGERY (DR JUDGE), OVARIAN CYST REMOVAL, R ARM SURGERY ORIF, DERMALTOLOGIC SURGERIES, Left knee surgery - Past Surgical History Past Surgical History: Yes Neuro Surgical History: No Pertinent History Cardiac History: No Pertinent History Respiratory Surgery: No Pertinent History GI Surgical History: No Pertinent History Genitourinary Surgical Hx: No Pertinent History Musculskeletal Surgical Hx: Orthopedic Surgery Female Surgical History: Other Other Surgical History: rt arm,ovarian cyst removed, back "defuse" L4-5 and compression fracture repair, left knee replacement Significant Family History: no pertinent family hx - Social History Smoking Status: Heavy tobacco smoker How long have you smoked: 50 yrs Exposure to second hand smoke: No Alcohol: None Drug Use: none - Social Determinants of Health Will the patient participate in the screening: Unable to obtain Do you worry about a steady place to live?: No Do you have any problems with any of the following?: No known problems In the past 12 months,have you had to go without utilities?: No Have you or anyone in your house had to go without enough: No Transportation Issues: No Has anyone in your support network made you feel unsafe?: No Does the patient want assistance with any of the above?: Yes Comment: patient has to move and is worried about finding a place. - Physical Exam Vital Signs: Vital Signs - 24 hr Temp Pulse Resp BP BP Pulse Ox 05/16/24 01:00 69 16 97 05/16/24 00:52 99.0 F 66 18 129/68 05/16/24 00:30 76 17 123/65 95 05/16/24 00:10 100 05/16/24 00:00 67 17 118/60 95 05/15/24 23:30 76 17 118/70 96 05/15/24 23:00 74 17 126/71 98 05/15/24 22:59 80 14 120/71 98 05/15/24 22:31 81 23 116/81 99 05/15/24 22:00 84 17 135/73 98 05/15/24 21:46 131 H 05/15/24 21:31 99 H 16 160/73 100 05/15/24 21:06 89 20 152/76 99 05/15/24 21:02 93 H 14 05/15/24 21:01 97.4 F 85 24 152/76 98 Physical Exam GEN: Sitting up in bed in no acute distress. HENT: Normocephalic, atraumatic. Moist mucous membranes. EYES: Normal inspection, anicteric sclera, extraocular movements intact. NECK: Supple, full range of motion CV: Regular rate and rhythm, no murmurs, no gallops. No JVD or edema. PULM: Clear to auscultation bilaterally, no work of breathing. On room air. ABD: Nondistended, nontender. MSK: No joint effusions, full range of motion SKIN: No rashes, normal color. NEURO: Face symmetric, able to maintain left arm elevation without drift (note, this is different from neurologist's exam done roughly 2 hours earlier), no overt sensory differences. PSYCH: Alert, oriented x 3 Results - Labs Lab/Micro Results: Lab Results-Last 24 Hours 05/15/24 05/15/24 05/15/24 Range/Units 21:20 21:20 21:20 WBC 11.3 H (3.98-10.04) x10^3/uL RBC 5.12 (3.93-5.22) x10^6/uL Hgb 14.0 (11.2-15.7) g/dL Hct 43.6 (34.1-44.9) % MCV 85.2 (79.4-94.8) fL MCH 27.3 (25.6-32.2) pg MCHC 32.1 L (32.2-35.5) g/dL RDW 14.0 (11.7-14.4) % Plt Count 425 H (182-369) x10^3/uL MPV 8.7 L (9.4-12.3) fL PT 9.8 (9.4-12.5) SECONDS INR 0.89 (0.8-3.0) APTT 22.6 L (25.1-36.5) SECONDS Sodium 140 (135-145) mmol/L Potassium 4.1 (3.5-5.1) mmol/L Chloride 104 (98-107) mmol/L Carbon Dioxide 30 (22-30) mmol/L Anion Gap 10.3 (5-15) MEQ/L BUN 22 H (7-17) mg/dL Creatinine 1.06 H (0.52-1.04) mg/dL Estimated GFR 59.0 ML/MIN Glucose 90 (74-106) mg/dL Calcium 8.6 (8.4-10.2) mg/dL Total Bilirubin 0.40 (0.2-1.3) mg/dL Direct Bilirubin 0.3 (0.0-0.4) mg/dL AST 29 (14-36) U/L ALT 18 (0-35) U/L Alkaline Phosphatase 78 (38-126) U/L Serum Total Protein 7.4 (6.3-8.2) g/dL Albumin 4.1 (3.5-5.0) g/dL Influenza Type A Ag (NEGATIVE) Influenza Type B Ag (NEGATIVE) RSV (PCR) (NEGATIVE) SARS-CoV-2 (PCR) (NEGATIVE) 05/15/24 Range/Units 21:20 WBC (3.98-10.04) x10^3/uL RBC (3.93-5.22) x10^6/uL Hgb (11.2-15.7) g/dL Hct (34.1-44.9) % MCV (79.4-94.8) fL MCH (25.6-32.2) pg MCHC (32.2-35.5) g/dL RDW (11.7-14.4) % Plt Count (182-369) x10^3/uL MPV (9.4-12.3) fL PT (9.4-12.5) SECONDS INR (0.8-3.0) APTT (25.1-36.5) SECONDS Sodium (135-145) mmol/L Potassium (3.5-5.1) mmol/L Chloride (98-107) mmol/L Carbon Dioxide (22-30) mmol/L Anion Gap (5-15) MEQ/L BUN (7-17) mg/dL Creatinine (0.52-1.04) mg/dL Estimated GFR ML/MIN Glucose (74-106) mg/dL Calcium (8.4-10.2) mg/dL Total Bilirubin (0.2-1.3) mg/dL Direct Bilirubin (0.0-0.4) mg/dL AST (14-36) U/L ALT (0-35) U/L Alkaline Phosphatase (38-126) U/L Serum Total Protein (6.3-8.2) g/dL Albumin (3.5-5.0) g/dL Influenza Type A Ag NEGATIVE (NEGATIVE) Influenza Type B Ag NEGATIVE (NEGATIVE) RSV (PCR) NEGATIVE (NEGATIVE) SARS-CoV-2 (PCR) NEGATIVE (NEGATIVE) - Radiology Impressions Radiology Exams & Impressions: Radiology Procedures Category Date Time Status CHEST 1 VIEW (PORTABLE) Stat Exams 05/15/24 21:[address] ANGIOGRAPHY NECK [CT] Stat Exams 05/15/24 22:19 Completed CTA HEAD W AND/OR WO CONTRAST [CT] Stat Exams 05/15/24 22:19 Completed ECHO W/2D AND DOPPLER [US] Routine Exams 05/16/24 02:08 Ordered HEAD WITHOUT CONTRAST [CT] Stat Exams 05/15/24 21:16 Completed MRI BRAIN W/O CONTRAST [MRI] Routine Exams 05/16/24 02:08 Ordered MRI C-SPINE W/O CONTRAST [MRI] Routine Exams 05/16/24 02:[address] head suspicious small focal hypodense area measuring 4 mm in the subcortical white matter of the right frontal region, concerning for acute infarct CTA head no evidence of stenosis, aneurysm, or dissection. CTA neck eccentric thrombus/noncirrhotic atheromatous plaque over 4 cm of the proximal right common carotid artery with a 30 to 50% luminal stenosis. Similar nonsclerotic plaque/thrombus in the proximal left common carotid artery causing 10 to 20% luminal stenosis. - Other Procedures and Tests Respiratory Therapy 05/16/24 01:06 Respiratory Therapy Assessment DAILY Assessment/Plan (1) CVA (cerebral vascular accident) Current Visit: Yes Status: Acute Assessment & Plan: 63-year-old woman with a history of COPD, TIA, tobacco use, and GERD, who presents with left arm weakness and numbness concerning for CVA versus inflammatory process. ## Left arm weakness and numbness patient has a possible lesion noted on head CT at the right frontal white matter, although this location would not explain her symptoms. As well, the concomitant focal motor and sensory symptoms would also be poorly explained by a cortical lesion. Possibly has a more inferior lesion involving cervical stenosis. However, the sudden onset with slow recovery would be more consistent with CVA. She has risk factors including her prior history of TIA as well as her ongoing smoking. Neurology consulted Will obtain MRI brain to evaluate for stroke and MRI C-spine to look for cervical pathology Obtain echo with bubble study for CVA restratification Check lipid panel, A1c, and TSH to evaluate for other stroke risk factors PT/OT/ST evaluation Leave n.p.o. pending speech evaluation Patient is already on aspirin and high-dose statin; will continue those ## Pharyngitis likely viral, slowly improving currently. PRN Tessalon No further steroid treatment ## Tobacco use smoking currently half pack per day. Currently declines nicotine patch. Counseled on smoking cessation ## COPD currently stable, on room air Continue home LABA/LAMA inhaler PRN albuterol ## GERD Continue omeprazole 40 daily CODE STATUS: Full code Prophylaxis: Heparin subcu TID Diet: N.p.o. pending speech evaluation, then regular Dispo: Place in observation, expect patient to be discharged to home in the next day or 2 Entirety of encounter took place via live audio/video telemedicine device, with remote physician and patient in hospital, with the aid of the bedside nurse. Code(s): I63.9 - CEREBRAL INFARCTION, UNSPECIFIED Telemedicine Encounter - Telemedicine Encounter Telemedicine Encounter: "The entirety of this encounter was performed via Telemedicine" This visit was performed using real-time audio and video connection between my location and thepatients locationwith the assistance of a surrogateat the patients location. Written or verbal consent was obtained from the patient/guardian to perform this visit usingsynchronoustelemedicine technology. Any patient questions regarding the telemedicine interaction were answered.
[2024-05-16] MEDS ORDERED: HEPARIN 5000 UNITS/0.5 ML (HIGH RISK MED) ONE (03:40)
[2024-05-16 04:32] LABS: Hematocrit 38.9 % (34.1-44.9); Hemoglobin 12.4 g/dL (11.2-15.7); Mean Corpuscular Hemoglobin 27.7 pg (25.6-32.2); Mean Corpuscular Hgb Concent. 31.9 g/dL (32.2-35.5); Mean Platelet Volume 8.7 fL (9.4-12.3); Platelet Count 348 x10^3/uL (182-369); Red Blood Count 4.47 x10^6/uL (3.93-5.22); Red Cell Distribution Width 14.4 % (11.7-14.4); White Blood Count 9.4 x10^3/uL (3.98-10.04)
[2024-05-16] MEDS: HEPARIN 5000 UNITS/0.5 ML (HIGH RISK MED) SQ SCH (05:04)
[2024-05-16] MEDS: Tessalon Perles 100 MG PO PRN (05:04)
[2024-05-16] MEDS ORDERED: DUONEB 0.5-3 MG/3 ml Neb IH ONE (05:09)
[2024-05-16] MEDS: DUONEB 0.5-3 MG/3 ml Neb IH SCH (05:10)
[2024-05-16] MEDS: PROVENTIL 2.5 MG/3 ML NEB IH PRN (05:13)
[2024-05-16 05:16] LABS: ANION GAP 11.5 MEQ/L (5-15); Calcium 8.4 mg/dL (8.4-10.2); Creatinine 1 0.9 mg/dL (0.52-1.04); EST GLOMERULAR FILTRATION RATE 71.8 ML/MIN; Potassium 4.7 mmol/L (3.5-5.1); TSH, 3RD Generation 1.458 mIU/L (0.470-4.680)
[2024-05-16] MEDS ORDERED: DUONEB 0.5-3 MG/3 ml Neb IH SCH (07:00)
[2024-05-16] MEDS ORDERED: MEDICATION INTERVENTION MC SCH (07:00)
--- NOTE | 2024-05-16 08:38 | XRAY ---
Indication: Cough. Comparison: March 22, 2023 Portable apical lordotic chest less inflated and remains clear. Heart not enlarged. Bony thorax intact again with osteopenia and L2 vertebroplasty. No new/acute findings.
[2024-05-16] MEDS ORDERED: NON-FORMULARY ITEM (Omeprazole [Omeprazole] 40 MG Capsule.Dr) PO SCH (10:00)
[2024-05-16] MEDS ORDERED: NON-FORMULARY ITEM (Cyclobenzaprine Hcl [Cyclobenzaprine Hcl] 5 MG Tablet) PO SCH (10:00)
[2024-05-16] MEDS ORDERED: BABY ASPIRIN 81 MG CHEW PO SCH (10:00)
[2024-05-16] MEDS ORDERED: PLAVIX Tablet PO SCH ×2 (10:00)
[2024-05-16] MEDS ORDERED: Toprol-Xl 25MG Tablets PO SCH (10:00)
[2024-05-16] MEDS: Protonix 40MG Tablet PO SCH (10:28)
[2024-05-16] MEDS: ECOTRIN 81 MG PO SCH (10:28)
[2024-05-16] MEDS: Cyclobenzaprine 10 MG PO SCH (10:28)
--- NOTE | 2024-05-16 12:54 | XRAY ---
Indication: Cerebrovascular accident. Left arm numbness. Sagittal, coronal, and axial MRI brain performed without contrast using T1, T2, FLAIR, diffusion, and ADC sequences. Comparison: February 20, 2017 Again age-appropriate global atrophy and minimal periventricular degenerative micro-ischemia bilaterally. Right occipital lobe and high right parietal lobe demonstrates new cluster of petechial cortical restricted signal favoring acute micro-ischemia. Lesser new petechial acute micro-ischemia in right centrum semiovale. No acute intracranial hemorrhage, abnormal extra-axial fluid collection, or mass effect. Fourth ventricle is midline without hydrocephalus. 7/8 cranial nerve complex bilaterally symmetric. Normal flow void signal within the major intracerebral circulation. Normal appearing craniocervical junction and sella turcica. Paranasal sinuses are clear. Impression: 1. New petechial acute micro-ischemia right occipital lobe, right parietal lobe, and right centrum semiovale. No acute hemorrhage or mass effect. 2. Again atrophy and degenerative micro-ischemia within normal limits.
[2024-05-16] MEDS: LIPITOR 40MG PO SCH (13:15)
--- NOTE | 2024-05-16 13:18 | XRAY ---
Indication: Cerebrovascular accident. Left arm numbness. Sagittal and axial MRI cervical spine performed without contrast using T1 and T2-weighted sequences. Comparison: None Sagittal images demonstrates cervical lordotic straightening, positional versus paraspinal spasm. Multilevel degenerative disc desiccation signal without disc space loss. No acute fracture, suspicious bony lesions, or abnormal bone marrow signal. Spinal cord is normal in course and caliber without signal abnormality. Normal appearing cranial cervical junction. Axial images through C2-C3 disc level negative for disc herniation, spinal canal, or foraminal stenosis. At C3-C4 level, there is minimal central disc bulge minimally effacing thecal sac. No disc herniation or canal stenosis. Left foraminal stenosis due to a committable spurring and joint and facet hypertrophy. At C4-C5 level, there is no disc herniation, spinal canal, or foraminal stenosis. At C5-C6 level, there is minimal broad-based disc bulge. No disc herniation, canal stenosis, or foraminal stenosis. Remaining C6-T1 levels are unremarkable. Impression: 1. Cervical lordotic straightening, positional versus paraspinal spasm. 2. Minimal C3-C4 and C5-C6 degenerative disc disease as detailed. 3. Negative for disc herniation or spinal canal stenosis.
--- NOTE | 2024-05-16 15:35 | PCM.CONS ---
History of Present Illness - Neuro Consultation Date of Consultation Date: 05/16/24 ED Arrival Date & Time: 05/15/24 20:58 Requesting Provider: Nancy Munguia Providers: Attending Provider: LUCIANA MONTANA MD ED Provider: GOLDY KULKARNI MD Consulting Provider: JENNIFER LÓPEZ MD Reason for Consult: Neurology follow-up MRI cc:: The requesting physician will be sent a copy of the consult. - Chief Complaint Patient Subjective Stated Complaint: feels better, wants to go home - History of Present Illness HPI: The patient is a 63F with HLD and prior TIA/ischemic stroke admitted on 05/15/24 for few days of LUE weakness concerning for acute stroke superimposed on generalized weakness associated with few weeks of cough. She feels her symptoms are near baseline aside from LUE weakness, which has improved but not resolved. No POLLARD, dizziness, CP, palpitations, N/V. +chronic cough. No new SOB. She has been evaluated by PT/OT with plan for home health therapy. At baseline was using a quad cane. MRI is +stroke as below. Was not taking ASA at home. Tolerating ASA 81mg daily and increased statin from 40mg at home to 80mg this admission. TTE has been completed, but results are pending. Pt would like to be discharged today instead of waiting for results; she is established with cardiology and plans to f/u with them. Known stroke risk factors:: Smoking, Prior Stroke/s, Dyslipidemia Review of Systems - Review of Systems Review of Systems (Narrative): Pertinent positive and negative findings as per HPI. All other systems negative. - Past Medical History Past Medical History: Yes Neurological History: TIA ENT History: Cataracts Cardiac History: High Cholesterol Respiratory History: COPD, Emphysema Endocrine Medical History: No Pertinent History Musculoskelatal History: Muscular Dystrophy GI Medical History: Hemorrhoids, GERD History: No Pertinent History Pyscho-Social History: No Pertinent History Reproductive Disorders: Other Comment: PSH: BACK SURGERY (DR JUDGE), OVARIAN CYST REMOVAL, R ARM SURGERY ORIF, DERMALTOLOGIC SURGERIES, Left knee surgery - Past Surgical History Past Surgical History: Yes Neuro Surgical History: No Pertinent History Cardiac History: No Pertinent History Respiratory Surgery: No Pertinent History GI Surgical History: No Pertinent History Genitourinary Surgical Hx: No Pertinent History Musculskeletal Surgical Hx: Orthopedic Surgery Female Surgical History: Other Other Surgical History: rt arm,ovarian cyst removed, back "defuse" L4-5 and compression fracture repair, left knee replacement Significant Family History: heart disease (father and brother from cardiac problems), cancer (mother) - Social History Smoking Status: Heavy tobacco smoker How long have you smoked: 50 yrs Exposure to second hand smoke: No Alcohol: None Drug Use: none - Social Determinants of Health Will the patient participate in the screening: Unable to obtain Do you worry about a steady place to live?: No Do you have any problems with any of the following?: No known problems In the past 12 months,have you had to go without utilities?: No Have you or anyone in your house had to go without enough: No Transportation Issues: No Has anyone in your support network made you feel unsafe?: No Does the patient want assistance with any of the above?: Yes Comment: patient has to move and is worried about finding a place. Physical Exam - Vital Signs Vital Signs: Vital Signs - 24 hr 05/15/24 05/15/24 05/15/24 21:01 21:02 21:06 Temperature 97.4 F Pulse Rate 85 93 H 89 Respiratory 24 14 20 Rate Blood Pressure 152/76 Blood Pressure 152/76 [right] O2 Sat by Pulse 98 99 Oximetry 05/15/24 05/15/24 05/15/24 21:31 21:46 22:00 Temperature Pulse Rate 99 H 131 H 84 Respiratory 16 17 Rate Blood Pressure 160/73 135/73 Blood Pressure [right] O2 Sat by Pulse 100 98 Oximetry 05/15/24 05/15/24 05/15/24 22:31 22:59 23:00 Temperature Pulse Rate 81 80 74 Respiratory 23 14 17 Rate Blood Pressure 116/81 120/71 126/71 Blood Pressure [right] O2 Sat by Pulse 99 98 98 Oximetry 05/15/24 05/16/24 05/16/24 23:30 00:00 00:10 Temperature Pulse Rate 76 67 Respiratory 17 17 Rate Blood Pressure 118/70 118/60 Blood Pressure [right] O2 Sat by Pulse 96 95 100 Oximetry 05/16/24 05/16/24 05/16/24 00:30 00:52 01:00 Temperature 99.0 F Pulse Rate 76 66 69 Respiratory 17 18 16 Rate Blood Pressure 123/65 Blood Pressure 133/62 [right] O2 Sat by Pulse 95 96 97 Oximetry 05/16/24 05/16/24 05/16/24 04:00 05:10 06:51 Temperature 98.1 F 98.2 F Pulse Rate 60 70 72 Respiratory 16 18 16 Rate Blood Pressure Blood Pressure 129/60 115/56 [right] O2 Sat by Pulse 93 L 98 97 Oximetry 05/16/24 11:38 Temperature 97.9 F Pulse Rate 72 Respiratory 18 Rate Blood Pressure Blood Pressure 124/57 [right] O2 Sat by Pulse 96 Oximetry - Physical Exam General: no acute distress 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, awake and oriented, fluent speech, no dysarthria Cranial nerves: extra ocular movements intact, unable to visualize fundi through telemedicine, sensation intact, face is symmetric, tongue midline, Visual bar are full to finger counting, no extinction to double Motor: antigravity in all 4 ext (LUE with slilght drift but not to bed in 10 sec. No drift in other extremities.) Sens:: intact to touch in all 4 (diminished to light touch in LUE; BLE symmetric) Movement:: no tremors noted, ABDULAZIZ/FTN intact. No ataxia MSR:: unable to assess through telemedicine, no clonus noted. Gait: deferred - NIHSS Stroke Scale Date Completed: 05/16/24 Time Stroke Scale Completed: 15:10 Level of Consciousness: Alert Level of Questions: Answers both correctly LOC Commands: Obeys both correctly Best Gaze: Normal Visual: No visual loss Facial Palsy: Normal Motor Arm-Left: Drift Motor Arm-Right: No Drift Motor Leg-Left: No Drift Motor Leg Right: No Drift Limb Ataxia: Absent Sensory: Partial Loss Best Language: No apashia Dysarthria: Normal aticulation Extinction and Inattention: No Neglect Stroke Risk Level: 2 Results - Labs Lab/Micro Results: Lab Results-Last 24 Hours 05/15/24 05/15/24 05/15/24 Range/Units 21:20 21:20 21:20 WBC 11.3 H (3.98-10.04) x10^3/uL RBC 5.12 (3.93-5.22) x10^6/uL Hgb 14.0 (11.2-15.7) g/dL Hct 43.6 (34.1-44.9) % MCV 85.2 (79.4-94.8) fL MCH 27.3 (25.6-32.2) pg MCHC 32.1 L (32.2-35.5) g/dL RDW 14.0 (11.7-14.4) % Plt Count 425 H (182-369) x10^3/uL MPV 8.7 L (9.4-12.3) fL PT 9.8 (9.4-12.5) SECONDS INR 0.89 (0.8-3.0) APTT 22.6 L (25.1-36.5) SECONDS Sodium 140 (135-145) mmol/L Potassium 4.1 (3.5-5.1) mmol/L Chloride 104 (98-107) mmol/L Carbon Dioxide 30 (22-30) mmol/L Anion Gap 10.3 (5-15) MEQ/L BUN 22 H (7-17) mg/dL Creatinine 1.06 H (0.52-1.04) mg/dL Estimated GFR 59.0 ML/MIN Glucose 90 (74-106) mg/dL Hemoglobin A1c (4.5-6.0) % Calcium 8.6 (8.4-10.2) mg/dL Total Bilirubin 0.40 (0.2-1.3) mg/dL Direct Bilirubin 0.3 (0.0-0.4) mg/dL AST 29 (14-36) U/L ALT 18 (0-35) U/L Alkaline Phosphatase 78 (38-126) U/L Troponin I (0.000-0.033) ng/mL Serum Total Protein 7.4 (6.3-8.2) g/dL Albumin 4.1 (3.5-5.0) g/dL Triglycerides (30-150) mg/dL Cholesterol (50-200) mg/dL LDL Cholesterol (30-100) mg/dL HDL Cholesterol (40-60) mg/dL Heart Disease Risk Ratio TSH 3rd Generation (0.470-4.680) mIU/L Influenza Type A Ag (NEGATIVE) Influenza Type B Ag (NEGATIVE) RSV (PCR) (NEGATIVE) SARS-CoV-2 (PCR) (NEGATIVE) 05/15/24 05/16/24 05/16/24 Range/Units 21:20 04:25 04:25 WBC 9.4 (3.98-10.04) x10^3/uL RBC 4.47 (3.93-5.22) x10^6/uL Hgb 12.4 (11.2-15.7) g/dL Hct 38.9 (34.1-44.9) % MCV 87.0 (79.4-94.8) fL MCH 27.7 (25.6-32.2) pg MCHC 31.9 L (32.2-35.5) g/dL RDW 14.4 (11.7-14.4) % Plt Count 348 (182-369) x10^3/uL MPV 8.7 L (9.4-12.3) fL PT (9.4-12.5) SECONDS INR (0.8-3.0) APTT (25.1-36.5) SECONDS Sodium 137 (135-145) mmol/L Potassium 4.7 (3.5-5.1) mmol/L Chloride 107 (98-107) mmol/L Carbon Dioxide 24 (22-30) mmol/L Anion Gap 11.5 (5-15) MEQ/L BUN 20 H (7-17) mg/dL Creatinine 0.90 (0.52-1.04) mg/dL Estimated GFR 71.8 ML/MIN Glucose 84 (74-106) mg/dL Hemoglobin A1c (4.5-6.0) % Calcium 8.4 (8.4-10.2) mg/dL Total Bilirubin (0.2-1.3) mg/dL Direct Bilirubin (0.0-0.4) mg/dL AST (14-36) U/L ALT (0-35) U/L Alkaline Phosphatase (38-126) U/L Troponin I (0.000-0.033) ng/mL Serum Total Protein (6.3-8.2) g/dL Albumin (3.5-5.0) g/dL Triglycerides 289 H (30-150) mg/dL Cholesterol 207 H (50-200) mg/dL LDL Cholesterol 83 (30-100) mg/dL HDL Cholesterol 47 (40-60) mg/dL Heart Disease Risk Ratio 4.0 TSH 3rd Generation 1.458 (0.470-4.680) mIU/L Influenza Type A Ag NEGATIVE (NEGATIVE) Influenza Type B Ag NEGATIVE (NEGATIVE) RSV (PCR) NEGATIVE (NEGATIVE) SARS-CoV-2 (PCR) NEGATIVE (NEGATIVE) 05/16/24 05/16/24 05/16/24 Range/Units 04:25 10:25 14:10 WBC (3.98-10.04) x10^3/uL RBC (3.93-5.22) x10^6/uL Hgb (11.2-15.7) g/dL Hct (34.1-44.9) % MCV (79.4-94.8) fL MCH (25.6-32.2) pg MCHC (32.2-35.5) g/dL RDW (11.7-14.4) % Plt Count (182-369) x10^3/uL MPV (9.4-12.3) fL PT (9.4-12.5) SECONDS INR (0.8-3.0) APTT (25.1-36.5) SECONDS Sodium (135-145) mmol/L Potassium (3.5-5.1) mmol/L Chloride (98-107) mmol/L Carbon Dioxide (22-30) mmol/L Anion Gap (5-15) MEQ/L BUN (7-17) mg/dL Creatinine (0.52-1.04) mg/dL Estimated GFR ML/MIN Glucose (74-106) mg/dL Hemoglobin A1c 5.18 (4.5-6.0) % Calcium (8.4-10.2) mg/dL Total Bilirubin (0.2-1.3) mg/dL Direct Bilirubin (0.0-0.4) mg/dL AST (14-36) U/L ALT (0-35) U/L Alkaline Phosphatase (38-126) U/L Troponin I < 0.012 < 0.012 (0.000-0.033) ng/mL Serum Total Protein (6.3-8.2) g/dL Albumin (3.5-5.0) g/dL Triglycerides (30-150) mg/dL Cholesterol (50-200) mg/dL LDL Cholesterol (30-100) mg/dL HDL Cholesterol (40-60) mg/dL Heart Disease Risk Ratio TSH 3rd Generation (0.470-4.680) mIU/L Influenza Type A Ag (NEGATIVE) Influenza Type B Ag (NEGATIVE) RSV (PCR) (NEGATIVE) SARS-CoV-2 (PCR) (NEGATIVE) - Other Procedures & Test Other Procedures & Test: Respiratory Therapy 05/16/24 01:06 Respiratory Therapy Assessment DAILY - Radiology Orders Radiology Orders: Radiology Procedures Category Date Time Status CHEST 1 VIEW (PORTABLE) Stat Exams 05/15/24 21:[address] ANGIOGRAPHY NECK [CT] Stat Exams 05/15/24 22:19 Completed CTA HEAD W AND/OR WO CONTRAST [CT] Stat Exams 05/15/24 22:19 Completed ECHO W/2D AND DOPPLER [US] Routine Exams 05/16/24 02:08 Taken HEAD WITHOUT CONTRAST [CT] Stat Exams 05/15/24 21:16 Completed MRI BRAIN W/O CONTRAST [MRI] Routine Exams 05/16/24 02:08 Completed MRI C-SPINE W/O CONTRAST [MRI] Routine Exams 05/16/24 02:08 Completed - CT Impressions CTA Head with and/or w/o contrast Status: report reviewed by me (R common carotid with eccentric thrombus resulting in 30-50% occlusion over about 4 cm) CT Head w/wo contrast Status: report reviewed by me (no significant intracranial stenosis or occlusion) - MRI Impressions MRI brain w/o contrast Status: image reviewed by me (scattered areas of restricted diffusion R occipital/parietal), report reviewed by me Other Status: report reviewed by me (degenerative disease, no cord compression) Impressions & Recommendations - Impression Acute Ischemic Stroke: Acute ischemic strokes in R parieto-occipital region scattered with embolic appearance. Telemetry with NSR this admission. CTA neck with eccentric thrombus R common carotid spanning about 4 cm with 30-50% stenosis should be evaluated by vascular. Unable to exclude cardioembolic etiology. Other stroke risk factors include HLD and tobacco use. - ED Arrival Time ED Arrival Date & Time: ED Arrival Date and Time 05/15/24 20:58 Last known well time: - NIHSS NIHSS: 2 Is patient an IV TPA candidate (if no specify reason): No If not, specify reason:: out of window Is patient a thrombectomy candidate:: No - Recommendations Recommendations: Work up: -Transthroacic echocardiogram [with bubble study] is completed but results pending. IF ok for d/c per vascular, this could be followed up outpatient. -Telemetry is NSR. Consider prolonged cardiac monitoring at discharge. 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 Will defer to vascular re: possible DAPT for carotid thrombus. -High intensity statin. Eg. Atrovastatin 80 mg daily. Goal LDL <70. Risk Factor Management - Continue to optimize BP and lipids. Smoking cessation. -Smoking cessation counseling Stroke Rehabilitation: -Physical therapy, occupational therapy Impression and recommendation were discussed with [employer] Nancy Munguia Thank you for allowing us to participate in this patient's care. Please call [facility] with questions, concerns, or change in patient's neurological status. This consult was performed via secure telemedicine audio/visual platform with CANDICE Soto assisting at bedside. Patient identity verified and consent obtained. Assessment & Plan - Encounter Encounter: "The entirety of this encounter was performed via Telemedicine using audio and visual "
[2024-05-16] MEDS ORDERED: HEPARIN 5000 UNITS/0.5 ML (HIGH RISK MED) IV PRN (17:19)
--- NOTE | 2024-05-16 17:21 | PCM.DS ---
Discharge Summary Date of Admission: 05/16/24 00:48 Date of Discharge: 05/16/24 Admitting Physician: LUCIANA MONTANA MD Primary Care Provider: MELE MITCHELL Allergies Allergies coconut Allergy (Verified 05/15/24 21:27) Hospital Summary - Hospital Course Hospital Course: 63-year-old woman with a history of TIA, COPD, tobacco use, and GERD .She pres ented last night with left arm weakness and tingling. Patient noted onset 3 weeks ago of upper respiratory infection symptoms including cough, congestion, sore throat. She obtained steroids from an urgent care clinic about a week ago, without any significant relief of symptoms, completing a course about 2 days prior to admission. At about that time, she developed the onset of sudden, complete weakness of the left arm, associated with some tingling/numbness. It has been constant for the last 2 days, with some slow improvement. She is now able to move her left arm somewhat, although it still feels weaker than her right arm. She does not see any reason why she came to the hospital today instead of 2 days earlier when the arm was first week. She is complaining that she still has her cough and congestion. She said that she had 2 prior TIAs, the most recent 4 years ago, but also had similar symptoms with complete left arm weakness. She is a current smoker, at half pack per day. No family history of premature CAD or CVA. Reviewed radiology images and MRI images. CT angiography shows:1. Eccentric thrombus / non-sclerotic atheromatous plaque is noted involving proximal portion of the right common carotid artery extending over a length of approximately 4 cm. 30%-50% luminal stenosis is noted at this level. Distal perfusion is well seen.2. Similar non-sclerotic plaque/thrombus is also noted involving proximal portion of left common carotid artery causing mild (10%-20% luminal stenosis). MRI brain shows: 1. New petechial acute micro-ischemia right occipital lobe, right parietal lobe, and right centrum semiovale. No acute hemorrhage or mass effect. 2. Again atrophy and degenerative micro-ischemia within normal limits. Discussed pt case with neurology and she recommended vascular surgery consult. Pt case discussed with vascular surgery per Dr. Lovett. Vascular surgery recommended heparin gtt be started and tx to ICU. Pt to be transferred to higher level of care high priority for vascular surgery as we do not provide this service here. Pt accepted at [facility] in [place]. - Vitals & Intake/Output Vital Signs: Vital Signs Temperature 97.5 F 05/16/24 16:00 Pulse Rate 70 05/16/24 16:00 Respiratory Rate 18 05/16/24 16:00 Blood Pressure 125/58 05/16/24 16:00 O2 Sat by Pulse Oximetry 97 05/16/24 16:00 Intake & Output: Intake & Output 05/14/24 05/15/24 05/16/24 05/17/24 11:59 11:59 11:59 11:59 Intake Total 360 360 Output Total 1 Balance 359 360 Weight 60.4 kg - Lab Result Diagrams: 05/16/24 04:25 05/16/24 04:25 Lab Results-Last 24 Hrs: Lab Results-Last 24 Hours 05/15/24 05/15/24 05/15/24 Range/Units 21:20 21:20 21:20 WBC 11.3 H (3.98-10.04) x10^3/uL RBC 5.12 (3.93-5.22) x10^6/uL Hgb 14.0 (11.2-15.7) g/dL Hct 43.6 (34.1-44.9) % MCV 85.2 (79.4-94.8) fL MCH 27.3 (25.6-32.2) pg MCHC 32.1 L (32.2-35.5) g/dL RDW 14.0 (11.7-14.4) % Plt Count 425 H (182-369) x10^3/uL MPV 8.7 L (9.4-12.3) fL PT 9.8 (9.4-12.5) SECONDS INR 0.89 (0.8-3.0) APTT 22.6 L (25.1-36.5) SECONDS Sodium 140 (135-145) mmol/L Potassium 4.1 (3.5-5.1) mmol/L Chloride 104 (98-107) mmol/L Carbon Dioxide 30 (22-30) mmol/L Anion Gap 10.3 (5-15) MEQ/L BUN 22 H (7-17) mg/dL Creatinine 1.06 H (0.52-1.04) mg/dL Estimated GFR 59.0 ML/MIN Glucose 90 (74-106) mg/dL Hemoglobin A1c (4.5-6.0) % Calcium 8.6 (8.4-10.2) mg/dL Total Bilirubin 0.40 (0.2-1.3) mg/dL Direct Bilirubin 0.3 (0.0-0.4) mg/dL AST 29 (14-36) U/L ALT 18 (0-35) U/L Alkaline Phosphatase 78 (38-126) U/L Troponin I (0.000-0.033) ng/mL Serum Total Protein 7.4 (6.3-8.2) g/dL Albumin 4.1 (3.5-5.0) g/dL Triglycerides (30-150) mg/dL Cholesterol (50-200) mg/dL LDL Cholesterol (30-100) mg/dL HDL Cholesterol (40-60) mg/dL Heart Disease Risk Ratio TSH 3rd Generation (0.470-4.680) mIU/L Influenza Type A Ag (NEGATIVE) Influenza Type B Ag (NEGATIVE) RSV (PCR) (NEGATIVE) SARS-CoV-2 (PCR) (NEGATIVE) 05/15/24 05/16/24 05/16/24 Range/Units 21:20 04:25 04:25 WBC 9.4 (3.98-10.04) x10^3/uL RBC 4.47 (3.93-5.22) x10^6/uL Hgb 12.4 (11.2-15.7) g/dL Hct 38.9 (34.1-44.9) % MCV 87.0 (79.4-94.8) fL MCH 27.7 (25.6-32.2) pg MCHC 31.9 L (32.2-35.5) g/dL RDW 14.4 (11.7-14.4) % Plt Count 348 (182-369) x10^3/uL MPV 8.7 L (9.4-12.3) fL PT (9.4-12.5) SECONDS INR (0.8-3.0) APTT (25.1-36.5) SECONDS Sodium 137 (135-145) mmol/L Potassium 4.7 (3.5-5.1) mmol/L Chloride 107 (98-107) mmol/L Carbon Dioxide 24 (22-30) mmol/L Anion Gap 11.5 (5-15) MEQ/L BUN 20 H (7-17) mg/dL Creatinine 0.90 (0.52-1.04) mg/dL Estimated GFR 71.8 ML/MIN Glucose 84 (74-106) mg/dL Hemoglobin A1c (4.5-6.0) % Calcium 8.4 (8.4-10.2) mg/dL Total Bilirubin (0.2-1.3) mg/dL Direct Bilirubin (0.0-0.4) mg/dL AST (14-36) U/L ALT (0-35) U/L Alkaline Phosphatase (38-126) U/L Troponin I (0.000-0.033) ng/mL Serum Total Protein (6.3-8.2) g/dL Albumin (3.5-5.0) g/dL Triglycerides 289 H (30-150) mg/dL Cholesterol 207 H (50-200) mg/dL LDL Cholesterol 83 (30-100) mg/dL HDL Cholesterol 47 (40-60) mg/dL Heart Disease Risk Ratio 4.0 TSH 3rd Generation 1.458 (0.470-4.680) mIU/L Influenza Type A Ag NEGATIVE (NEGATIVE) Influenza Type B Ag NEGATIVE (NEGATIVE) RSV (PCR) NEGATIVE (NEGATIVE) SARS-CoV-2 (PCR) NEGATIVE (NEGATIVE) 05/16/24 05/16/24 05/16/24 Range/Units 04:25 10:25 14:10 WBC (3.98-10.04) x10^3/uL RBC (3.93-5.22) x10^6/uL Hgb (11.2-15.7) g/dL Hct (34.1-44.9) % MCV (79.4-94.8) fL MCH (25.6-32.2) pg MCHC (32.2-35.5) g/dL RDW (11.7-14.4) % Plt Count (182-369) x10^3/uL MPV (9.4-12.3) fL PT (9.4-12.5) SECONDS INR (0.8-3.0) APTT (25.1-36.5) SECONDS Sodium (135-145) mmol/L Potassium (3.5-5.1) mmol/L Chloride (98-107) mmol/L Carbon Dioxide (22-30) mmol/L Anion Gap (5-15) MEQ/L BUN (7-17) mg/dL Creatinine (0.52-1.04) mg/dL Estimated GFR ML/MIN Glucose (74-106) mg/dL Hemoglobin A1c 5.18 (4.5-6.0) % Calcium (8.4-10.2) mg/dL Total Bilirubin (0.2-1.3) mg/dL Direct Bilirubin (0.0-0.4) mg/dL AST (14-36) U/L ALT (0-35) U/L Alkaline Phosphatase (38-126) U/L Troponin I < 0.012 < 0.012 (0.000-0.033) ng/mL Serum Total Protein (6.3-8.2) g/dL Albumin (3.5-5.0) g/dL Triglycerides (30-150) mg/dL Cholesterol (50-200) mg/dL LDL Cholesterol (30-100) mg/dL HDL Cholesterol (40-60) mg/dL Heart Disease Risk Ratio TSH 3rd Generation (0.470-4.680) mIU/L Influenza Type A Ag (NEGATIVE) Influenza Type B Ag (NEGATIVE) RSV (PCR) (NEGATIVE) SARS-CoV-2 (PCR) (NEGATIVE) - Radiology Exams Ordered Rad Exams-Entire Visit: Radiology Procedures Category Date Time Status CHEST 1 VIEW (PORTABLE) Stat Exams 05/15/24 21:[address] ANGIOGRAPHY NECK [CT] Stat Exams 05/15/24 22:19 Completed CTA HEAD W AND/OR WO CONTRAST [CT] Stat Exams 05/15/24 22:19 Completed ECHO W/2D AND DOPPLER [US] Routine Exams 05/16/24 02:08 Taken HEAD WITHOUT CONTRAST [CT] Stat Exams 05/15/24 21:16 Completed MRI BRAIN W/O CONTRAST [MRI] Routine Exams 05/16/24 02:08 Completed MRI C-SPINE W/O CONTRAST [MRI] Routine Exams 05/16/24 02:08 Completed - Procedures and Test Procedures and Tests throughout Hospitalization: Therapy Orders & Screens 05/16/24 01:06 Respiratory Therapy Assessment DAILY Comment: Diagnosis: CVA 05/16/24 02:07 PT Eval & Treat ( Order) ONCE Reason for Eval:: eval & treat Diagnosis: CVA OT Eval and Treat (MD Order) ONCE Comment: Physician Instructions: Reason For Exam: Diagnosis: CVA 05/16/24 02:08 ST Eval & Treat (MD Order) ROUTINE Comment: Physician Instructions: Reason For Exam: Evaluate: eval & treat Treat: eval & treat Reason for Eval: CVA Diagnosis: CVA Discharge Exam General Appearance: no apparent distress, alert Neurologic Exam: alert, oriented x 3, cooperative, [employer]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, normal mood/affect, nml cerebellar function, sensation nml, No motor deficits Eye Exam: PERRL, EOMI, eyes nml inspection Ears, Nose, Throat Exam: normal ENT inspection, pharynx normal, moist mucous membranes Neck Exam: normal inspection, non-tender, supple, full range of motion Respiratory Exam: normal breath sounds, lungs clear, No respiratory distress Cardiovascular Exam: regular rate/rhythm, normal heart sounds Gastrointestinal/Abdomen Exam: soft, No tenderness, No mass Pelvic Exam: deferred Rectal Exam: deferred Back Exam: normal inspection, normal range of motion, No CVA tenderness, No vertebral tenderness Extremity Exam: normal inspection, normal range of motion Skin Exam: normal color, warm, dry Final Diagnosis/Problem List - Final Discharge Diagnosis/Problem (1) CVA (cerebral vascular accident) Current Visit: Yes Status: Acute Assessment & Plan: - CTA head: IMPRESSION: 1. No evidence of stenosis or aneurysm. No evidence of dissection. -CT head: IMPRESSION: 1. Suspicious small focal hypodense area measuring 4 mm in the subcortical white matter of right frontal region, better appreciated on axial image 53/71, concerning for acute infarct. 2. Recommended MR imaging with stroke protocol for further evaluation 3. This appears to be a new interval finding. -MRI brain Impression: 1. New petechial acute micro-ischemia right occipital lobe, right parietal lobe, and right centrum semiovale. No acute hemorrhage or mass effect. 2. Again atrophy and degenerative micro-ischemia within normal limits. images uploaded to cloud for higher level of care to review - Neurology report reviewed and recs ordered - statin increased per recs - lipid panel reviewed - UA pending - ASA 81 mg daily - Tele - Per tele- neurology stroke likely thromboembolic from carotid Code(s): I63.9 - CEREBRAL INFARCTION, UNSPECIFIED (2) Carotid artery thrombosis Current Visit: Yes Status: Acute Assessment & Plan: CT/CT ANGIOGRAPHY NECK CLINICAL HISTORY: cva COMPARISON: None. TECHNIQUE: Contrast enhanced thin slice CT angiography scan of the carotid vessels was performed with intravenous contrast. Angiographic images were processed, 3D MIP images were acquired for interpretation. Contiguous axial images were obtained. Reformatted coronal and sagittal images were also reviewed. If IV contrast material had not been administered, the likelihood of detecting abnormalities relevant to the patient's condition would have been substantially decreased. CT scan was performed according to ALARA (as low as reasonably achievable). FINDINGS: Included great vessels of the aortic arch are grossly unremarkable. Eccentric thrombus/ no sclerotic atheromatous plaque is noted involving proximal portion of the right common carotid artery extending over a length of approximately 4 cm. 30%-50% luminal stenosis is noted at this level. Distal perfusion is well seen. Similar non-sclerotic plaque/thrombus is also noted involving proximal portion of left common carotid artery causing mild (10%-20% luminal stenosis). Few calcified atheromatous plaques are noted involving bilateral carotid bulbs causing insignificant luminal stenosis. Vertebral arteries are well opacified. Jugular veins are well opacified. Included lung apices are grossly unremarkable. Thyroid gland appears unremarkable. IMPRESSION: 1. Eccentric thrombus / non-sclerotic atheromatous plaque is noted involving proximal portion of the right common carotid artery extending over a length of approximately 4 cm. 30%-50% luminal stenosis is noted at this level. Distal perfusion is well seen. 2. Similar non-sclerotic plaque/thrombus is also noted involving proximal portion of left common carotid artery causing mild (10%-20% luminal stenosis). - Heparin gtt weight based doing started per vascular surgery recs - Pt moved to ICU - Pt awaiting tx to high images uploaded to cloud for higher level of care to reviewer level of care. Code(s): I65.29 - OCCLUSION AND STENOSIS OF UNSPECIFIED CAROTID ARTERY (3) Smoker Current Visit: Yes Status: Chronic Assessment & Plan: - Declined nicotine patch - advised cessatoin. Code(s): F17.200 - NICOTINE DEPENDENCE, UNSPECIFIED, UNCOMPLICATED (4) COPD (chronic obstructive pulmonary disease) Current Visit: No Status: Chronic Assessment & Plan: - not in acute exacerbation - albuterol, Duonebs PRN - Tessalon pearls for cough - CXR: Portable apical lordotic chest less inflated and remains clear. Heart not enlarged. Bony thorax intact again with osteopenia and L2 vertebroplasty. No new/acute findings. (5) Essential hypertension Current Visit: No Status: Chronic Assessment & Plan: - BP stable - BP med held to allow for permissive HTN Code(s): I10 - ESSENTIAL (PRIMARY) HYPERTENSION (6) GERD (gastroesophageal reflux disease) Current Visit: No Status: Chronic Assessment & Plan: - protonix 40 daily Code(s): K21.9 - GASTRO-ESOPHAGEAL REFLUX DISEASE WITHOUT ESOPHAGITIS - Discharge Discharge Date: 05/16/24 ([facility]) Disposition: XFER OTHER Condition: Fair Prescriptions: Continue Fluticasone Propionate [Flonase NASAL] 1 spray IH DAILY Albuterol 2.5 mg/3 ml Neb [Proventil 2.5 mg/3 ml Neb] 3 ml IH Q6HPRN PRN PRN Reason: Shortness Of Breath/Wheezing Albuterol Sulfate [Albuterol Sulfate Hfa] 2 puff IH Q6H Cyclobenzaprine HCl 5 mg PO TID Metoprolol Succinate 25 mg Xl* [Toprol-Xl 25MG Tablets] 25 mg PO DAILY Omeprazole 40 mg pe PO DAILY Hydrocodone/Acetaminophen [Hydrocodone-Acetamin 5-325 mg] 1 tab PO Q6HPRN PRN PRN Reason: Pain Meloxicam 7.5 mg PO DAILY Atorvastatin Calcium [Lipitor] 40 mg PO HS Umeclidinium Brm/Vilanterol Tr [Anoro Ellipta 62.5-25 Mcg INH] 1 puff IH DAILY Aspirin EC 325 mg [Ecotrin 325 MG] 325 mg PO DAILY Instructions: Stroke Additional Instructions: [facility] WILL CALL YOU TO ARRANGE A TIME TO COME SEE YOU. THEIR PHONE NUMBER IS [phone] IF YOU NEED ANYTHING BEFORE THEIR VISIT Follow up with: MELE MITCHELL [Primary Care Provider] - 06/02/24 1:30 pm Bruno Kennedy MD [CONSULTING PHYSICIAN] - 06/01/24 9:15 am
[2024-05-16 17:26] LABS: Hematocrit 38.3 % (34.1-44.9); Hemoglobin 12.5 g/dL (11.2-15.7); Mean Cell Volume 86.3 fL (79.4-94.8); Mean Corpuscular Hemoglobin 28.2 pg (25.6-32.2); Mean Corpuscular Hgb Concent. 32.6 g/dL (32.2-35.5); Mean Platelet Volume 8.6 fL (9.4-12.3); Platelet Count 363 x10^3/uL (182-369); Red Blood Count 4.44 x10^6/uL (3.93-5.22); Red Cell Distribution Width 14.3 % (11.7-14.4); White Blood Count 8.9 x10^3/uL (3.98-10.04)
[2024-05-16] MEDS: HEPARIN 5000 UNITS/0.5 ML (HIGH RISK MED) IV STA (17:38)
[2024-05-16 17:42] LABS: INR 0.91 (0.8-3.0); PTT 24.5 SECONDS (25.1-36.5)
[2024-05-16] MEDS: Heparin 25,000 units/D5W: USE ORDER SET PROTO 25,000 UNITS/250 ML BAG IV SCH (17:45)
[2024-05-16 20:28] LABS: Appearance Clear (Clear); Bacteria Few /HPF (None Seen); Bilirubin Negative (Negative); Blood Negative (Negative); Epithelial Cells Few /HPF (None Seen); Glucose, Urine Negative (Negative); Hyaline Casts NONE SEEN /LPF (0-2); Ketones Negative (Negative); Leukocyte Esterase Moderate (Negative); Nitrite Negative (Negative); Ph 6.5 (4.6-8.0); Protein,Urine Dip Negative (Negative); RBC 0-2 /HPF (0-5); Urobilinogen 0.2 mg/dL (0.2)
[2024-05-16 21:17] VITALS: PULSE 74; RESP 16; O2SAT 98
[2024-05-16 21:57] VITALS: BP 113/65; TEMP 97.3
[2024-05-16] MEDS ORDERED: NON-FORMULARY ITEM (Atorvastatin Calcium [Lipitor] 20 MG Tablet) PO SCH (22:00)
[2024-05-16] MEDS ORDERED: LIPITOR 40MG PO SCH (22:00)
== END 2024-05-16 21:50 ==
LOC: ED 20:58 → MED SURG 05-16 00:48 → ICU 05-16 17:12
PROVIDERS: ADMIT Internal Medicine; ATTEND Internal Medicine
DX: I63.9 Cerebral infarction, unspecified (principal); I65.29 Occlusion and stenosis of unspecified carotid artery; F17.200 Nicotine dependence, unspecified, uncomplicated; J44.9 Chronic obstructive pulmonary disease, unspecified; I10 Essential (primary) hypertension; K21.9 Gastro-esophageal reflux disease without esophagitis; Z79.899 Other long term (current) drug therapy; Z86.73 Personal history of transient ischemic attack (TIA), and cerebral infarction without residual deficits
CPT/HCPCS: 0241U; 36415; 70450; 70496; 70498; 70551; 71045; 72141; 80048; 80061; 80076; 81001; 83036; 83721; 84443; 84484; 85027; 85610; 85730; 93268; 93306; 94640; 94760; 99285; J1644; J7609; Q3014; A9270-GY; G0378